=== PATIENT | female | born 1950 | race Caucasian/White ===

== ENCOUNTER 2017-06-26 18:30 | Emergency (ER) | payer MEDICAID, MEDICARE ==
[~2017-06-26] VITALS: Ht 160 cm; Wt 77.0 kg
[~2017-06-26 18:30] MED LIST: CARB1TAB45 PO; CYAN100080 PO; DEXL60CA2 PO; FURO-110 PO; GABA100C14 PO; IBUP-1542 PO; INSU100I27 SQ; ISM20 PO; LACT10SO5 PO; MECL-77 PO; NOVO3I SC; PANT40TA3 PO; RIFA550T4 PO; SPIR50TA31 PO
[2017-06-26 18:38] VITALS: Ht 160 cm; Wt 77.0 kg
[2017-06-27] MEDS ORDERED: NOVO3I SC (13:26)
[2017-06-27] MEDS ORDERED: CALC500T91 PO (13:28)
[2017-06-27] MEDS ORDERED: LEVEM SC (13:28)
== END 2017-06-26 22:04 | disposition left against medical advice (07) ==
LOC: E/R 18:30
DX: Z53.21 Procedure and treatment not carried out due to patient leaving prior to being seen by health care provider (principal)

== ENCOUNTER 2017-06-27 11:37 | Observation (INO) | payer MEDICARE, OTHER ==
[~2017-06-27] VITALS: Ht 160 cm; Wt 78.5 kg
[2017-06-27] MEDS ORDERED: NITROGLYCERIN 2% 1 GM OINT PKT TD STA (12:08)
[2017-06-27] MEDS ORDERED: ASPIRIN 81 MG TAB PO STA (12:08)
--- NOTE | 2017-06-27 12:23 | ERA ---
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 She has a history of hepatitis, cirrhosis and diabetes. She describes at least 2 days of chest pain that she describes as left-sided, pressure-like and exertional with associated shortness of breath. Chest pain alleviated with cessation of walking or exerting symptoms. She denies any pleuritic pain. She does note some increased social stressors recently. She denies any melena, hematemesis. No abdominal pain. ROS All systems reviewed and are negative except as per history of present illness. Medications Home Meds Active Scripts Pantoprazole* (Protonix*) 40 Mg Tablet.dr, 40 MG PO DAILY, #14 TAB Prov:BRANDON VOSS MD 09/02/16 Reported Medications Calcium Carbonate ([id number]) 500 Mg Tablet, 500 MG PO BID, TAB 06/27/17 Insulin Detemir (Levemir) 100 Unit/1 Ml Vial, 60 UNIT SC QHS, VIAL 06/27/17 Insulin Aspart* (Novolog Insulin Pen*) 100 Unit/Ml Soln, 20 UNIT SC QAM, EA 06/27/17 Isosorbide Mononitrate* (Isosorbide Mononitrate*) 20 Mg Tablet, 20 MG PO BID, TAB 09/02/16 Ibuprofen* (Ibuprofen*) 600 Mg Tablet, 600 MG PO DAILY Y for PAIN, TAB 09/02/16 Lactulose* (Lactulose*) 10 Gm/15 Ml Solution, 10 GM PO BID, ML 09/02/16 Gabapentin* (Gabapentin*) 100 Mg Capsule, 100 MG PO TID, CAP 02/28/15 Rifaximin* (Xifaxan*) 550 Mg Tablet, 550 MG PO BID 02/26/14 Meclizine Hcl* (Meclizine Hcl*) 25 Mg Tablet, 25 MG PO DAILY 04/17/13 Furosemide* (Lasix*) 20 Mg Tablet, 20 MG PO DAILY 04/17/13 Discontinued Reported Medications Cyanocobalamin* (Vitamin B-12*) 1,000 Mcg Tablet.sa, 1000 MCG PO DAILY, TAB 11/12/16 Carbidopa/Levodopa (CARBIDOPA-LEVO 10-100 MG ODT) 1 Each Tab.rapdis, 1 TAB PO BID, #60 TAB 09/02/16 Dexlansoprazole (Dexilant) 60 Mg , 60 MG PO DAILY, #30 CAP 09/02/16 Spironolactone* (Aldactone*) 50 Mg Tablet, 50 MG PO TID 04/17/13 Allergies Allergies: Coded Allergies: morphine (Verified Allergy, Mild, 06/27/17) FACIAL REDNESS aspirin (Verified Allergy, Unknown, 06/27/17) PMhx/Soc History of Surgery: Yes (hepatic banding/ tips) Anesthesia Reaction: No Hx Neurological Disorder: No Hx Respiratory Disorders: No Hx Cardiac Disorders: Yes (HTN) Hx Psychiatric Problems: Yes (depression- lost son 10 yo; lost husb 2 wks ago) Hx Miscellaneous Medical Probl: No Hx Alcohol Use: No Hx Substance Use: No Hx Tobacco Use: No FmHx Family History: diabetes Physical Exam Vitals Vital Signs Date Time Temp Pulse Resp B/P Pulse Ox O2 Delivery O2 Flow Rate FiO2 06/27/17 14:51 98.0 73 18 101/49 99 Room Air 06/27/17 13:19 97.7 75 16 115/49 98 Room Air 06/27/17 11:42 97.6 81 18 124/57 98 Physical Exam General: Well developed, well nourished, no acute distress Head: Normocephalic, atraumatic. Eyes: Pupils equally reactive, EOM intact ENT: Moist mucous membranes Neck: Supple, no lymphadenopathy Respiratory: Lungs clear bilaterally, no distress Cardiovascular: RRR, no murmurs, rubs, or gallops Abdominal: Soft, non-tender, non-distended, no peritoneal signs : Deferred MSK: No edema, no unilateral swelling, 5/5 strength, No pulse deficits Neurologic: Alert and oriented, moving all extremities, normal speech, no focal weakness, no cerebellar signs Skin: No rash Psych: Normal mood Result Diagram: 06/27/17 1220 06/27/17 1220 Results 24 hrs Laboratory Tests Test 06/27/17 12:20 White Blood Count 3.410^3/ul Red Blood Count 3.6210^6/ul Hemoglobin 9.2g/dl Hematocrit 28.7% Mean Corpuscular Volume 79.3fl Mean Corpuscular Hemoglobin 25.4pg Mean Corpuscular Hemoglobin Concent 32.1g/dl Red Cell Distribution Width 16.5% Platelet Count 5810^3/UL Mean Platelet Volume 10.8fl Neutrophils % 71.7% Lymphocytes % 17.5% Monocytes % 9.3% Eosinophils % 0.9% Basophils % 0.6% Nucleated Red Blood Cells % 0.0/100WBC Neutrophils # (Manual) 2.510^3/ul Lymphocytes # 0.610^3/ul Monocytes # 0.310^3/ul Eosinophils # 0.010^3/ul Basophils # 0.010^3/ul Nucleated Red Blood Cells # 0.010^3/ul Prothrombin Time 16.2Sec Prothrombin Time Ratio 1.3 INR International Normalized Ratio 1.29 Activated Partial Thromboplast Time 28.9Sec Sodium Level 140mmol/L Potassium Level 4.6mmol/L Chloride Level 108mmol/L Carbon Dioxide Level 27mmol/L Anion Gap 10 Blood Urea Nitrogen 14mg/dl Creatinine 0.61mg/dl Glucose Level 282mg/dl Calcium Level 9.6mg/dl Total Bilirubin 1.0mg/dl Direct Bilirubin 0.00mg/dl Indirect Bilirubin 1.0mg/dl Aspartate Amino Transf (AST/SGOT) 36IU/L Alanine Aminotransferase (ALT/SGPT) 37IU/L Alkaline Phosphatase 173IU/L Troponin I < 0.012ng/ml Total Protein 6.8g/dl Albumin 3.4g/dl Globulin 3.40g/dl Albumin/Globulin Ratio 1.00 Current Medications Medications (Trade) Dose Ordered Sig/Grant Route PRN Reason Start Time Stop Time Status Last Admin Dose Admin Aspirin (Aspirin) 162 mg ONCE STAT PO 06/27/17 12:08 06/27/17 12:10 DC 06/27/17 12:26 Nitroglycerin (Nitroglycerin 2% Oint) 1 inch ONCE STAT TD 06/27/17 12:08 06/27/17 12:10 DC 06/27/17 12:26 Vancomycin HCl 1 ea 1 ea PER PROTOCOL XX 06/27/17 14:30 06/27/17 14:32 DC Meropenem/Sodium Chloride (Merrem 500mg/50 ml(Pmx)) 50 ml @ 200 mls/hr ONCE STAT IVPB 06/27/17 14:14 06/27/17 14:32 DC Ondansetron HCl (Zofran Inj) 4 mg ER BRIDGE PRN IV NAUSEA AND/OR VOMITING 06/27/17 15:00 06/28/17 14:59 Acetaminophen (Tylenol Tab) 650 mg ER BRIDGE PRN PO MILD PAIN/FEVER 06/27/17 15:00 06/28/17 14:59 Procedures/MDM EKG, MONITORS, & DIAGNOSTIC IMAGING: EKG: I reviewed and interpreted a 12-lead EKG. Rhythm: Normal sinus rhythm Ectopy: None Intervals: No abnormalities ST segments: No elevations or depressions T waves: No contiguous inversions Repeat EKG: EKG: I reviewed and interpreted a 12-lead EKG. Rhythm: Normal sinus rhythm Ectopy: None Intervals: No abnormalities ST segments: No elevations or depressions T waves: No contiguous inversions Chest x-ray: I reviewed and interpreted a 1 view of the chest Mediastinum: No enlargement Cardiac silhouette: No cardiomegaly Airspace: Clear lung mart bilaterally without evidence of pneumothorax Bones: No evidence of fracture LAB INTERPRETATION: Negative troponin, pancytopenia consistent with the patient's known cirrhosis MEDICAL DECISION MAKING: The patient's history, physical exam and clinical presentation is concerning for possible cardiogenic etiology and acute coronary syndrome. Based on the patient's clinical exam and history and risk factors, I have a much lower clinical concern for pulmonary embolism, acute aortic dissection, pneumothorax, pneumonia, cardiac tamponade HEART Score: 4 MACE Rate: 16.6% Shared Decision Making: We had a conversation regarding risk stratification, MACE rate, and the risks, benefits, alternatives of disposition planning options. Disposition planning: Given the patient's no prior history of cardiac risk stratification a believe inpatient hospitalization would be reasonable. Patient is agreeable. ER COURSE: Aspirin provided, however the patient did state aspirin allergy this is not a true allergy use only because the patient was advised not to take aspirin regularly given cirrhosis. A single dose would be appropriate. 162 provided. Nitro paste applied. Patient is chest pain-free. I kept the patient and/or family informed of laboratory and diagnostic imaging results throughout the emergency room course. DISPOSITION PLAN: Telemetry admission to rule out acute coronary syndrome, risk stratify the patient and discussed provocative testing. CONSULTATION: Accepting care team and consultations: I discussed the current laboratory data, diagnostic imaging and emergency care provided. Admitting team: Dr. Clemens Admitting team indication: Insurance directed Departure Diagnosis: Primary Impression: Chest pain Qualified Code: R07.9 - Chest pain, unspecified type Additional Impression: Pancytopenia Condition: Stable REENA PAULSON MD Jun 27, 2017 12:23
[2017-06-27 12:33] LABS: ABNORMAL IP MESSAGE 1; BASOPHILS % 0.6 % (0.0-2.0); EOSINOPHILS % 0.9 % (0.0-7.0); HEMATOCRIT 28.7 % (37.0-47.0); HEMOGLOBIN 9.2 g/dl (12.0-16.0); LYMPHOCYTES # 0.6 10^3/ul (0.8-2.9); LYMPHOCYTES % 17.5 % (15.0-51.0); MEAN CORPUSCULAR HEMOGLOBIN 25.4 pg (29.0-33.0); MEAN CORPUSCULAR HGB CONC 32.1 g/dl (32.0-37.0); MEAN CORPUSCULAR VOLUME 79.3 fl (82.0-101.0); MEAN PLATELET VOLUME 10.8 fl (7.4-10.4); MONOCYTE # 0.3 10^3/ul (0.3-0.9); MONOCYTES % 9.3 % (0.0-11.0); NEUTROPHILS % 71.7 % (39.0-77.0); PLATELET COUNT 58 10^3/UL (140-415); RED BLOOD COUNT 3.62 10^6/ul (4.20-5.40); RED CELL DISTRIBUTION WIDTH 16.5 % (11.5-14.5); WHITE BLOOD COUNT 3.4 10^3/ul (4.8-10.8)
[2017-06-27 12:47] LABS: POSITIVE DIFF @See below
--- NOTE | 2017-06-27 12:50 | RADRPT ---
PROCEDURE: Chest xray. CLINICAL INDICATION: Chest pain, difficulty breathing. TECHNIQUE: A portable semiupright AP view of the chest was obtained. COMPARISON: 09/02/2016. FINDINGS: There is stable mild enlargement of the cardiac silhouette. Atherosclerotic calcifications are again noted in the aorta. The lungs are well moderately expanded and show normal vascularity. No focal op acity, pleural effusion, or pneumothorax is identified. The skeletal structures and soft tissues are unremarkable. IMPRESSION: Stable mild cardiomegaly. Otherwise, no acute intrathoracic abnormality. RPTAT:PP .Yohana Spivey MD, MD Date Time Electronically viewed and signed by .Yohana Spivey MD, on 06/27/2017 12:50 .K/
[2017-06-27 13:05] LABS: INR 1.29; PARTIAL THROMBOPLASTIN TIME 28.9 Sec (25.0-35.0); PROTIME 16.2 Sec (12.2-14.2); PT RATIO 1.3
[2017-06-27 13:16] LABS: ALANINE AMINOTRANSFERASE 37 IU/L (13-69); ALBUMIN 3.4 g/dl (3.3-4.9); ALKALINE PHOSPHATASE 173 IU/L (42-121); ANION GAP 10 (8-16); ASPARTATE AMINO TRANSFERASE 36 IU/L (15-46); BLOOD UREA NITROGEN 14 mg/dl (7-20); CALCIUM 9.6 mg/dl (8.4-10.2); CARBON DIOXIDE 27 mmol/L (21-31); CHLORIDE 108 mmol/L (97-110); CREATININE 0.61 mg/dl (0.44-1.00); GLUCOSE 282 mg/dl (70-220); POTASSIUM 4.6 mmol/L (3.5-5.1); SODIUM 140 mmol/L (135-144); TOTAL PROTEIN 6.8 g/dl (6.1-8.1)
[2017-06-27] MEDS ORDERED: NOVO3I SC (13:26)
[2017-06-27 13:28] LABS: TROPONIN-I < 0.012 ng/ml (0.00-0.12)
[2017-06-27] MEDS ORDERED: CALC500T91 PO (13:28)
[2017-06-27] MEDS ORDERED: LEVEM SC (13:28)
[2017-06-27] MEDS ORDERED: MEROPENEM 500MG/50 ML (PMX) 50 ML IVPB STA (14:14)
[2017-06-27] MEDS ORDERED: VANCOMYCIN IV PER PHARMACY XX SCH (14:30)
[2017-06-27] MEDS ORDERED: ONDANSETRON 4 MG INJ IV PRN ×2 (15:00→16:30)
[2017-06-27] MEDS ORDERED: ACETAMINOPHEN 325 MG TAB PO PRN ×2 (15:00→16:30)
[2017-06-27] MEDS ORDERED: NACL 0.9% 3 ML SYG IV SCH (16:30)
[2017-06-27 16:38] VITALS: TEMP 98
[2017-06-27] MEDS ORDERED: GLUCAGON 1 MG INJ IM PRN (17:00)
[2017-06-27] MEDS ORDERED: DEXTROSE 50% 50 ML SYRINGE IV PRN ×2 (17:00)
[2017-06-27] MEDS ORDERED: GLUCOSE GEL 15 GRAM TUBE BUCCAL PRN (17:00)
[2017-06-27] MEDS ORDERED: GLUCOSE GEL 15 GRAM TUBE PO PRN ×2 (17:00)
--- NOTE | 2017-06-27 17:02 | HP ---
Date/Time of Note Date/Time of Note DATE: 06/27/17 TIME: 16:57 Assessment/Plan VTE Prophylaxis VTE Prophylaxis Intervention: SCD's Lines/Catheters IV [facility] [place] [facility] Assessment/Plan Chief Complaint/Hosp Course 1. Chest pain. To rule out acute coronary syndrome. Serial troponins will be obtained. A 2D echocardiogram will be obtained. A cardiology consult will be obtained. The patient will not be started on aspirin because of underlying thrombocytopenia. 2. Type 2 diabetes mellitus. The patient will be started on sliding scale insulin along with basal insulin and pre-meal insulin. Hemoglobin A1c will be obtained to evaluate the blood glucose control the past few weeks. 3. Nonalcoholic liver cirrhosis. The patient's cirrhotic medications will be resumed. 4. Pancytopenia. Most probably secondary to underlying liver cirrhosis. Monitor. 5. Left great toe necrotic wound. Will have podiatry evaluate this. Plan: The patient will be admitted to inpatient Telemetry floor. The patient will be started on a carbohydrate controlled diet. The patient will be started on DVT prophylaxis and gastrointestinal prophylaxis. Chemical DVT prophylaxis will be avoided because of underlying thrombocytopenia. The patient will remain a full code. Activities will be as tolerated. The rest of the patient's management will be based on the clinical course, inputs from consultants, and the results of diagnostic studies. Based on the patient's clinical presentation, she most probably requires at least 1 midnight's stay for further management and evaluation of her clinical presentation. The case and management of this patient was fully discussed with Dr. Swift. Problems: HPI/ROS Admit Date/Time Admit Date/Time Hx of Present Illness Reason for admission: Chest pain. Consultants 1. Art Mcfarland DO, Cardiology. This is a 67-year-old Occitan female with past medical history of nonalcoholic liver cirrhosis, type 2 diabetes mellitus, and dyslipidemia, who came to the emergency room with chief complaint of chest pain that has been going on for 2 days. The patient verbalized the chest pain as substernal with no radiation. The patient denied any associated diaphoresis, nausea, or vomiting. The patient was complaining of dizziness. She also verbalized exertional dyspnea. She denied any cough. In the emergency room, the patient's initial troponins were negative. The patient was noticed to have pancytopenia. The patient's 12-lead EKG showed normal sinus rhythm. The patient was given a single dose of oral aspirin along with transdermal nitroglycerin with improvement in the patient's chest pain. ROS Constitutional: no complaints Eyes: no complaints ENT: no complaints Respiratory: shortness of breath Cardiovascular: chest pain, lightheadedness Gastrointestinal: no complaints Genitourinary: no complaints Musculoskeletal: other (B/L LE pain) Skin: laceration (Right great toe) Neurologic: no complaints Endocrine: no complaints Lymphatic: no complaints Psychological: no complaints Immunologic: no complaints PMH/Family/Social Past Medical History Medical History: diabetes, high cholesterol, other (Non-alcoholic liver cirrhosis, esophageal varices) Past Surgical History Past Surgical Hx: other (TIPS) Social History Alcohol Use: none Smoking Status: Never smoker Drug Use: none Exam/Review of Systems Vital Signs Vitals Vital Signs Date Time Temp Pulse Resp B/P Pulse Ox O2 Delivery O2 Flow Rate FiO2 06/27/17 16:38 98.0 74 18 93/36 99 Room Air Exam Exam General: Adequately build 67 year-old female lying in bed in no apparent distress. HEENT: Normocephalic, atraumatic. Eyes: Anicteric sclerae, conjunctivae clear. ENT: Nasal septum midline, oral mucosa moist. Neck supple, no JVD noticed. Respiratory: Bilaterally diminished breath sounds. No use of accessory muscles of respiration. No adventitious breath sounds. Cardiovascular: S1, S2 heard. Grade II/ ADDI. Abdomen: Soft and nontender. Distended. Bowel sounds positive in all 4 quadrants. Genitourinary: Deferred. Extremities: No cyanosis, no clubbing. Bilateral lower extremity 1+ edema. Peripheral pulses palpable. Right great toe necrotic wound on the medial aspect. Neurologic: Cranial nerves II through XII grossly intact. The patient is awake, alert, and oriented. Labs Result Diagram: 06/27/17 1220 06/27/17 1220 Medications Medications Current Medications Ondansetron HCl (Zofran Inj) 4 mg Q6H PRN IV NAUSEA AND/OR VOMITING; Start 06/27 at 16:30 Acetaminophen (Tylenol Tab) 650 mg Q6H PRN PO PAIN LEVEL 1-3 OR FEVER; Start at 16:30 Famotidine (Pepcid) 20 mg Q12 PO ; Start 06/27/17 at 21:00 Procedures Procedures CXR IMPRESSION: Stable mild cardiomegaly. Otherwise, no acute intrathoracic abnormality. 12-Lead EKG Normal sinus rhythm. MEME SHELTON NP Jun 27, 2017 17:02 MEME SHELTON NP Jun 27, 2017 17:02
[2017-06-27 17:50] VITALS: Ht 160 cm; Wt 78.5 kg
[2017-06-27 18:51] VITALS: BP 105/71; PULSE 73; RESP 20
[2017-06-27] MEDS: PANTOPRAZOLE (EC) 40 MG TAB PO SCH (19:28)
[2017-06-27] MEDS: INSULIN ASPART [NOVOLOG] 3 ML PEN SC SCH ×3 (19:29→21:29)
[2017-06-27 19:37] LABS: CREATINE KINASE 28 IU/L (23-200)
[2017-06-27 19:51] LABS: CK-MB 0.43 ng/ml (0.0-2.4)
[2017-06-27 20:03] LABS: TROPONIN-I < 0.012 ng/ml (0.00-0.12)
[2017-06-27 20:15] VITALS: PULSE 85
[2017-06-27 20:29] VITALS: PULSE 80
[2017-06-27 20:34] VITALS: BP 110/49; RESP 19
[2017-06-27] MEDS ORDERED: FAMOTIDINE 20 MG TAB PO SCH (21:00)
[2017-06-27] MEDS: LACTULOSE 30ML CUP PO SCH (21:15)
[2017-06-27] MEDS: CALCIUM CARBONATE 1.25 GM TAB PO SCH (21:16)
[2017-06-27] MEDS: RIFAXIMIN 550 MG TAB PO SCH (21:17)
[2017-06-27] MEDS: ISOSORBIDE MONONITRATE 20 MG TAB PO SCH (21:18)
[2017-06-27] MEDS: GABAPENTIN 100 MG CAP PO SCH (21:33)
[2017-06-27] MEDS ORDERED: INSULIN ASPART [NOVOLOG] 3 ML PEN SC ONE (21:45)
[2017-06-27] MEDS ORDERED: INSULIN GLARGINE [LANtus] 3 ML PEN SC ONE (21:50)
--- NOTE | 2017-06-27 22:30 | CONS ---
Date/Time of Note Date/Time of Note DATE: 06/27/17 TIME: 22:24 Assessment/Plan Assessment/Plan Additional Assessment/Plan Chest and abdominal pain Dyspnea Liver cirrhosis Pancytopenia History of GI bleed -Patient with symptoms of chest discomfort and abdominal pain which is exacerbated by palpation and movements. She does as well complaint of dyspnea which is exacerbated by activity. Initial ECG with no significant ischemic abnormalities, first 2 sets of cardiac enzymes remain negative. Will obtain serial cardiac enzymes, check echocardiogram. Given history of GI bleed and current pancytopenia, would not continue aspirin at the current time. Would consider concurrently evaluating possible GI etiology to patient's abdominal discomfort and chest discomfort. Consultation Date/Type/Reason Admit Date/Time Type of Consultation: cv Reason for Consultation Chest pain Hx of Present Illness This is a 67-year-old female with past medical history of liver cirrhosis, pancytopenia, GI bleed who presents with complaints of abdominal pain, chest pain and shortness of breath. Chest pain is worse with palpation of chest wall and abdomen. Shortness of breath is exacerbated by activity. Symptoms began approximately 2-3 days ago. No fevers or chills, dizziness or lightheadedness. At the current time, she denies chest pain or shortness of breath. 12 point review of systems was performed with all pertinent positives and negatives mentioned above and all else is negative Eyes: no complaints ENT: no complaints Respiratory: shortness of breath Cardiovascular: chest pain, lightheadedness Gastrointestinal: no complaints Genitourinary: no complaints Musculoskeletal: other (B/L LE pain) Skin: laceration (Right great toe) Neurologic: no complaints Lymphatic: no complaints Psychological: no complaints Immunologic: no complaints Past Medical History Medical History: diabetes, high cholesterol, other (Non-alcoholic liver cirrhosis, esophageal varices) Past Surgical History Past Surgical Hx: other (TIPS) Family History Significant Family History: no pertinent family hx Social History Alcohol Use: none Smoking Status: Never smoker Drug Use: none Exam/Review of Systems Vital Signs Vitals Vital Signs Date Time Temp Pulse Resp B/P Pulse Ox O2 Delivery O2 Flow Rate FiO2 06/27/17 20:34 97.9 79 19 110/49 98 06/27/17 18:51 Room Air Exam No apparent distress Constitutional: alert, oriented Head: normocephalic Respiratory: clear to auscultation, normal air movement Cardiovascular: other (S1-S2 heard), regular rate and rhythm Gastrointestinal: bowel sounds, soft, tender (More so epigastric region and left upper quadrant) Musculoskeletal: other (Discomfort with palpation of chest wall) Extremities: edema Results Result Diagram: 06/27/17 1220 06/27/17 1220 Results 24 hrs Laboratory Tests Test 06/27/17 12:20 06/27/17 18:20 06/27/17 19:24 06/27/17 21:21 White Blood Count 3.4 L Red Blood Count 3.62 L Hemoglobin 9.2 L Hematocrit 28.7 L Mean Corpuscular Volume 79.3 L Mean Corpuscular Hemoglobin 25.4 L Mean Corpuscular Hemoglobin Concent 32.1 Red Cell Distribution Width 16.5 H Platelet Count 58 L Mean Platelet Volume 10.8 #H Neutrophils % 71.7 Lymphocytes % 17.5 Monocytes % 9.3 Eosinophils % 0.9 Basophils % 0.6 Nucleated Red Blood Cells % 0.0 Neutrophils # (Manual) 2.5 Lymphocytes # 0.6 L Monocytes # 0.3 Eosinophils # 0.0 Basophils # 0.0 Nucleated Red Blood Cells # 0.0 Prothrombin Time 16.2 H Prothrombin Time Ratio 1.3 INR International Normalized Ratio 1.29 Activated Partial Thromboplast Time 28.9 Sodium Level 140 Potassium Level 4.6 Chloride Level 108 Carbon Dioxide Level 27 Anion Gap 10 Blood Urea Nitrogen 14 Creatinine 0.61 Glucose Level 282 H Hemoglobin A1c 8.9 H Calcium Level 9.6 Total Bilirubin 1.0 Direct Bilirubin 0.00 Indirect Bilirubin 1.0 Aspartate Amino Transf (AST/SGOT) 36 Alanine Aminotransferase (ALT/SGPT) 37 Alkaline Phosphatase 173 H Troponin I < 0.012 < 0.012 Total Protein 6.8 Albumin 3.4 Globulin 3.40 H Albumin/Globulin Ratio 1.00 Thyroid Stimulating Hormone (TSH) 1.270 Free Thyroxine 1.24 Creatine Kinase 28 Creatine Kinase Index 1.5 Creatinine Kinase MB (Mass) 0.43 Bedside Glucose 340 H 389 H Medications Medications Current Medications Ondansetron HCl (Zofran Inj) 4 mg Q6H PRN IV NAUSEA AND/OR VOMITING; Start 06/27 at 16:30 Acetaminophen (Tylenol Tab) 650 mg Q6H PRN PO PAIN LEVEL 1-3 OR FEVER; Start at 16:30 Calcium Carbonate (Oyster Shell Calcium) 1.25 gm BID PO Last administered on 21:16; Admin Dose 1.25 GM; Start 06/27/17 at 21:00 Furosemide (Lasix) 20 mg DAILY PO ; Start 06/28/17 at 09:00 Gabapentin (Neurontin) 100 mg TID PO Last administered on 06/27/17 21:33; Admin Dose 100 MG; Start 06/27/17 at 21:00 Isosorbide Mononitrate (Ismo) 20 mg BID PO Last administered on 06/27/17 21:18 ; Admin Dose 20 MG; Start 06/27/17 at 21:00 Lactulose (Enulose) 10 gm BID PO Last administered on 06/27/17 21:15; Admin Dose 10 GM; Start 06/27/17 at 21:00 Meclizine HCl (Antivert) 25 mg DAILY PO ; Start 06/28/17 at 09:00 Pantoprazole (Protonix Tab) 40 mg DAILY PO Last administered on 06/27/17 19:28 ; Admin Dose 40 MG; Start 06/27/17 at 17:00 Rifaximin (Xifaxan) 550 mg BID PO Last administered on 06/27/17 21:17; Admin Dose 550 MG; Start 06/27/17 at 21:00 Diagnostic Test (Pha) (Accu-Chek) 1 ea 02 XX ; Start 06/28/17 at 02:00 Insulin Glargine (Lantus) 20 unit DAILY@08 SC ; Start 06/28/17 at 08:00 Miscellaneous Information 1 ea NOTE XX ; Start 06/27/17 at 17:00 Glucose (Glutose) 15 gm Q15M PRN PO DECREASED GLUCOSE; Start 06/27/17 at 17:00 Glucose (Glutose) 22.5 gm Q15M PRN PO DECREASED GLUCOSE; Start 06/27/17 at 17:00 Dextrose (D50w Syringe) 25 ml Q15M PRN IV DECREASED GLUCOSE; Start 06/27/17 at 17:00 Dextrose (D50w Syringe) 50 ml Q15M PRN IV DECREASED GLUCOSE; Start 06/27/17 at 17:00 Glucagon (Glucagen) 1 mg Q15M PRN IM DECREASED GLUCOSE; Start 06/27/17 at 17:00 Glucose (Glutose) 15 gm Q15M PRN BUCCAL DECREASED GLUCOSE; Start 06/27/17 at 17: 00 Procedures Procedures ECG with sinus rhythm, normal QRS duration, no significant ischemic ST abnormalities Art Mcfarland DO Jun 27, 2017 22:30
[2017-06-28] VITALS (13 sets, daily range): BP systolic 108–119; BP diastolic 49–63; PULSE 74–87; RESP 17–19
[2017-06-28 01:42] LABS: CK-MB 0.43 ng/ml (0.0-2.4)
[2017-06-28 01:49] LABS: CREATINE KINASE < 20 IU/L (23-200); TROPONIN-I < 0.012 ng/ml (0.00-0.12)
[2017-06-28] MEDS: ACCU-CHEK XX SCH (02:25)
[2017-06-28 07:09] LABS: ABNORMAL IP MESSAGE 1; BASOPHILS % 0.4 % (0.0-2.0); EOSINOPHILS # 0.1 10^3/ul (0.0-0.5); EOSINOPHILS % 2.1 % (0.0-7.0); HEMATOCRIT 25.2 % (37.0-47.0); LYMPHOCYTES # 0.6 10^3/ul (0.8-2.9); LYMPHOCYTES % 23.7 % (15.0-51.0); MEAN CORPUSCULAR HEMOGLOBIN 25.1 pg (29.0-33.0); MEAN CORPUSCULAR HGB CONC 31.7 g/dl (32.0-37.0); MEAN PLATELET VOLUME 11.3 fl (7.4-10.4); MONOCYTE # 0.3 10^3/ul (0.3-0.9); MONOCYTES % 11.9 % (0.0-11.0); NEUTROPHILS % 61.9 % (39.0-77.0); RED BLOOD COUNT 3.19 10^6/ul (4.20-5.40); RED CELL DISTRIBUTION WIDTH 16.5 % (11.5-14.5); WHITE BLOOD COUNT 2.4 10^3/ul (4.8-10.8)
[2017-06-28 07:34] LABS: CHOL/HDL RATIO 2.9 RATIO; CHOLESTEROL 120 mg/dl (100-200); HDL CHOLESTEROL 41 mg/dl (35-98); PHOSPHORUS 3.7 mg/dl (2.5-4.9); TRIGLYCERIDES 63 mg/dl (0-149)
[2017-06-28 07:40] LABS: ALBUMIN 2.6 g/dl (3.3-4.9); BILIRUBIN,INDIRECT 0.5 mg/dl (0-1.1); BILIRUBIN,TOTAL 0.5 mg/dl (0.2-1.3); CALCIUM 9.2 mg/dl (8.4-10.2); CREATININE 0.63 mg/dl (0.44-1.00); POTASSIUM 4.2 mmol/L (3.5-5.1); TOTAL PROTEIN 5.3 g/dl (6.1-8.1)
[2017-06-28 07:41] LABS: ALBUMIN/GLOBULIN RATIO 0.96
[2017-06-28 07:46] LABS: POSITIVE DIFF @See below
[2017-06-28 07:47] LABS: PLATELET COUNT 52 10^3/UL (140-415)
[2017-06-28 07:50] LABS: TROPONIN-I < 0.012 ng/ml (0.00-0.12)
[2017-06-28] MEDS: INSULIN ASPART [NOVOLOG] 3 ML PEN SC SCH ×7 (08:01→21:44)
[2017-06-28] MEDS: INSULIN GLARGINE [LANtus] 3 ML PEN SC SCH (08:02)
[2017-06-28] MEDS: LACTULOSE 30ML CUP PO SCH ×2 (08:12→21:34)
[2017-06-28] MEDS: ISOSORBIDE MONONITRATE 20 MG TAB PO SCH ×2 (08:13→21:40)
[2017-06-28] MEDS: GABAPENTIN 100 MG CAP PO SCH ×3 (08:13→21:35)
[2017-06-28] MEDS: CALCIUM CARBONATE 1.25 GM TAB PO SCH ×2 (08:13→21:35)
[2017-06-28] MEDS: RIFAXIMIN 550 MG TAB PO SCH ×2 (08:13→21:35)
[2017-06-28] MEDS: PANTOPRAZOLE (EC) 40 MG TAB PO SCH (08:14)
[2017-06-28] MEDS: MECLIZINE 25 MG TAB PO SCH (08:14)
[2017-06-28] MEDS: FUROSEMIDE 20 MG TAB PO SCH (08:14)
--- NOTE | 2017-06-28 12:08 | RADRPT ---
Echocardiogram Report Patient Name: VITA VUONG Gender: Female Date: 1950 Study Date: 28-Jun-2017 Paper Twister: Carlos Estes [facility] Location: [facility] Ref. Physician: MEME SHELTON Quality: Good Procedures: Transthoracic echocardiogram with complete 2D, M-Mode, and doppler examination. Indications: Chest Pain. 2D/M Mode Doppler Measurement Value Normal Ranges Measurement Value Normal Ranges LVIDd 2D 4.5 3.5 - 5.6 cm BJ Vmax 1.7 cm2 LVIDs 2D 2.5 2.1 - 4.1 cm BJ VTI 1.7 cm2 LVPWd 2D 1.0 0.6 - 1.1 cm AV Mean Robert 1.5 m/sec IVSd 2D 1.0 0.6 - 1.1 cm AV Mean PG 10.3 mmHg AoR Diam 2D 2.6 2.0 - 3.7 cm AV Peak Robert 2.3 m/sec EDV 2D 91.2 cm3 AV Peak PG 20.6 mmHg ESV 2D 16.0 cm3 AV VTI 46.6 cm LA Dimen 2D 3.4 2.3 - 4.0 cm LVOT Mean Robert 0.9 m/sec LVOT Diam 1.9 cm LVOT Mean PG 4.0 mmHg LVOT Peak Robert 1.4 m/sec LVOT Peak PG 8.2 mmHg LVOT VTI 30.6 cm MV E Peak Robert 0.9 m/sec MV A Peak Robert 0.9 m/sec MV E/A 1.0 MV Decel Time 172 msec MV Decel Churchill 5 MV E/A 1.0 TR Peak Robert 2.3 m/sec TR Peak PG 21.1 mmHg RVSP 24.0 mmHg Findings Left Ventricle: Normal left ventricular systolic function. Normal left ventricular cavity size. Normal left ventricular wall thickness. Ejection fraction is visually estimated at 65 %. Tissue Doppler/Mitral Doppler indices are consistent with impaired relaxation (Stage I diastolic dysfunction). Right Ventricle: Normal right ventricular size. Normal right ventricular systolic function. Left Atrium: The left atrium is normal in size. Right Atrium: The right atrium is normal in size. Mitral Valve: Mitral valve leaflets appear moderately thickened. Mild mitral annular calcification. Trace mitral regurgitation. Aortic Valve: Aortic valve Max velocity 2.27 m/sec. Max PG 20.60 mmHg. Mean PG 10.30 mmHg. Aortic sclerosis without stenosis. No aortic regurgitation. Tricuspid Valve: Normal appearance of the tricuspid valve. Estimated peak PA systolic pressure 24 mmHg. There is trace tricuspid regurgitation. Pulmonic Valve: Normal pulmonic valve appearance. Pericardium: Normal pericardium with no significant pericardial effusion. Aorta: Normal aortic root. IVC: Normal size and normal respiratory collapse consistent with normal right atrial pressure. Conclusions Normal left ventricular systolic function. Normal left ventricular cavity size. Normal left ventricular wall thickness. Ejection fraction is visually estimated at 65 %. Tissue Doppler/Mitral Doppler indices are consistent with impaired relaxation (Stage I diastolic dysfunction). Normal right ventricular size. Normal right ventricular systolic function. The left atrium is normal in size. The right atrium is normal in size. Aortic sclerosis without stenosis. No aortic regurgitation. Trace mitral regurgitation. Estimated peak PA systolic pressure 24 mmHg. There is trace tricuspid regurgitation. Normal pericardium with no significant pericardial effusion. Electronically Signed By: Art Mcfarland 28-Jun-2017 12:07:39 -0700 Patient Name: VITA VUONG Study Date: 28-Jun-2017 [id number]
--- NOTE | 2017-06-28 13:52 | PN ---
Date/Time of Note Date/Time of Note DATE: 06/28/17 TIME: 13:46 Assessment/Plan VTE Prophylaxis VTE Prophylaxis Intervention: contraindicated Lines/Catheters IV C[facility]ter Type (from [facility]): [facility] Assessment/Plan Chief Complaint/Hosp Course 1. Chest pain. Serial troponins have been negative. 2D echocardiogram showing preserved left ventricular ejection fraction. Cardiology following. No aspirin because of underlying thrombocytopenia and anemia. Will have gastroenterology evaluate the patient since the patient has prior history of esophageal varices status post banding. 2. Type 2 diabetes mellitus. The patient will be continued on sliding scale insulin along with basal insulin and pre-meal insulin. Hemoglobin A1c 8.9. 3. Nonalcoholic liver cirrhosis. Continue rifaximin and lactulose. 4. Pancytopenia. Most probably secondary to underlying liver cirrhosis. Monitor. 5. Left great toe necrotic wound. Podiatry has been consulted. 6. Fluids, electrolytes, and nutrition. Carbohydrate controlled diet. 7. DVT prophylaxis. Contraindicated. 8. Plan. Continue inpatient monitoring. Obtain gastroenterology consult. The case and management of this patient was fully discussed with Dr. Swift. Problems: Subjective 24 Hr Interval Summary Free Text/Dictation Complains of epigastric pain. Exam/Review of Systems Vital Signs Vitals Vital Signs Date Time Temp Pulse Resp B/P Pulse Ox O2 Delivery O2 Flow Rate FiO2 06/28/17 12:30 75 06/28/17 12:06 98.0 19 113/57 97 06/27/17 18:51 Room Air Intake and Output 06/27/17 06/27/17 06/28/17 15:00 23:00 07:00 Intake Total 520 ml Balance 520 ml Exam General: Adequately build 67 year-old female lying in bed in no apparent distress. HEENT: Normocephalic, atraumatic. Eyes: Anicteric sclerae, conjunctivae clear. ENT: Nasal septum midline, oral mucosa moist. Neck supple, no JVD noticed. Respiratory: Bilaterally diminished breath sounds. No use of accessory muscles of respiration. No adventitious breath sounds. Cardiovascular: S1, S2 heard. Grade II/ ADDI. Abdomen: Soft and nontender. Distended. Bowel sounds positive in all 4 quadrants. Genitourinary: Deferred. Extremities: No cyanosis, no clubbing. Bilateral lower extremity 1+ edema. Peripheral pulses palpable. Right great toe necrotic wound on the medial aspect. Neurologic: Cranial nerves II through XII grossly intact. The patient is awake, alert, and oriented. Results Result Diagram: 06/28/17 0632 06/28/17 0631 Results 24 hrs Laboratory Tests Test 06/27/17 18:16 06/27/17 18:20 06/27/17 19:24 06/27/17 21:21 Bedside Glucose 277 H 340 H 389 H Creatine Kinase 28 Creatine Kinase Index 1.5 Creatinine Kinase MB (Mass) 0.43 Troponin I < 0.012 Test 06/28/17 00:49 06/28/17 02:19 06/28/17 06:31 06/28/17 06:32 Creatine Kinase < 20 L Creatine Kinase Index Creatinine Kinase MB (Mass) 0.43 Troponin I < 0.012 < 0.012 Bedside Glucose 278 H Sodium Level 141 Potassium Level 4.2 Chloride Level 111 H Carbon Dioxide Level 27 Anion Gap 7 L Blood Urea Nitrogen 14 Creatinine 0.63 Glucose Level 234 H Calcium Level 9.2 Total Bilirubin 0.5 Direct Bilirubin 0.00 Indirect Bilirubin 0.5 Aspartate Amino Transf (AST/SGOT) 30 Alanine Aminotransferase (ALT/SGPT) 34 Alkaline Phosphatase 143 H Ammonia 120 #H Total Protein 5.3 #L Albumin 2.6 L Globulin 2.70 Albumin/Globulin Ratio 0.96 White Blood Count 2.4 #L Red Blood Count 3.19 L Hemoglobin 8.0 L Hematocrit 25.2 L Mean Corpuscular Volume 79.0 L Mean Corpuscular Hemoglobin 25.1 L Mean Corpuscular Hemoglobin Concent 31.7 L Red Cell Distribution Width 16.5 H Platelet Count 52 L Mean Platelet Volume 11.3 H Neutrophils % 61.9 Lymphocytes % 23.7 Monocytes % 11.9 H Eosinophils % 2.1 Basophils % 0.4 Nucleated Red Blood Cells % 0.0 Neutrophils # (Manual) 1.5 L Lymphocytes # 0.6 L Monocytes # 0.3 Eosinophils # 0.1 Basophils # 0.0 Nucleated Red Blood Cells # 0.0 Phosphorus Level 3.7 Magnesium Level 2.0 Triglycerides Level 63 Cholesterol Level 120 LDL Cholesterol, Calculated 66 HDL Cholesterol 41 Cholesterol/HDL Ratio 2.9 Test 06/28/17 07:39 06/28/17 12:04 Bedside Glucose 255 H 209 Medications Medications Current Medications Ondansetron HCl (Zofran Inj) 4 mg Q6H PRN IV NAUSEA AND/OR VOMITING; Start 06/27 at 16:30 Acetaminophen (Tylenol Tab) 650 mg Q6H PRN PO PAIN LEVEL 1-3 OR FEVER; Start at 16:30 Calcium Carbonate (Oyster Shell Calcium) 1.25 gm BID PO Last administered on 08:13; Admin Dose 1.25 GM; Start 06/27/17 at 21:00 Furosemide (Lasix) 20 mg DAILY PO Last administered on 06/28/17 08:14; Admin Dose 20 MG; Start 06/28/17 at 09:00 Gabapentin (Neurontin) 100 mg TID PO Last administered on 06/28/17 12:35; Admin Dose 100 MG; Start 06/27/17 at 21:00 Isosorbide Mononitrate (Ismo) 20 mg BID PO Last administered on 06/28/17 08:13 ; Admin Dose 20 MG; Start 06/27/17 at 21:00 Lactulose (Enulose) 10 gm BID PO Last administered on 06/28/17 08:12; Admin Dose 10 GM; Start 06/27/17 at 21:00 Meclizine HCl (Antivert) 25 mg DAILY PO Last administered on 06/28/17 08:14; Admin Dose 25 MG; Start 06/28/17 at 09:00 Pantoprazole (Protonix Tab) 40 mg DAILY PO Last administered on 06/28/17 08:14 ; Admin Dose 40 MG; Start 06/27/17 at 17:00 Rifaximin (Xifaxan) 550 mg BID PO Last administered on 06/28/17 08:13; Admin Dose 550 MG; Start 06/27/17 at 21:00 Diagnostic Test (Pha) (Accu-Chek) 1 ea 02 XX Last administered on 06/28/17 02: 25; Admin Dose 1 EA; Start 06/28/17 at 02:00 Insulin Glargine (Lantus) 20 unit DAILY@08 SC Last administered on 06/28/17 08: 02; Admin Dose 20 UNIT; Start 06/28/17 at 08:00 Miscellaneous Information 1 ea NOTE XX ; Start 06/27/17 at 17:00 Glucose (Glutose) 15 gm Q15M PRN PO DECREASED GLUCOSE; Start 06/27/17 at 17:00 Glucose (Glutose) 22.5 gm Q15M PRN PO DECREASED GLUCOSE; Start 06/27/17 at 17:00 Dextrose (D50w Syringe) 25 ml Q15M PRN IV DECREASED GLUCOSE; Start 06/27/17 at 17:00 Dextrose (D50w Syringe) 50 ml Q15M PRN IV DECREASED GLUCOSE; Start 06/27/17 at 17:00 Glucagon (Glucagen) 1 mg Q15M PRN IM DECREASED GLUCOSE; Start 06/27/17 at 17:00 Glucose (Glutose) 15 gm Q15M PRN BUCCAL DECREASED GLUCOSE; Start 06/27/17 at 17: 00 MEME SHELTON NP Jun 28, 2017 13:52
--- NOTE | 2017-06-28 14:54 | CONS ---
Date/Time of Note Date/Time of Note DATE: 06/28/17 TIME: 14:47 Assessment/Plan Assessment/Plan Additional Assessment/Plan Assessment * Chest pain cardiac vs non cardiac * Liver cirrhosis * Diabetes mellitus * H/O EGD and banding of esophageal varices Plan * EGD but patient and family refused the procedure * Continue present management * Will sign off for now * case discussed with Dr Harper Consultation Date/Type/Reason Admit Date/Time Date of Consultation: Jun 28, 2017 Type of Consultation: gastroenterology Reason for Consultation chest pain Referring Provider: MEME SHELTON INSURANCE SALES ASSISTANT Hx of Present Illness 67 year old female with past medical history of diabetes mellitus,liver cirrhosis,post EGD with banding of varices 1 year ago,presented in emergency room complaining of chest pain with associated abdominal discomfort.Patient denies any episode of hematemesis.Patient was evaluated by cardiology and serial troponin was negative.I spoke with the patient and family regarding the planned endoscopy but patient refused Constitutional: improved, no complaints Eyes: no complaints ENT: no complaints Respiratory: shortness of breath Cardiovascular: chest pain, lightheadedness Gastrointestinal: no complaints Genitourinary: no complaints Musculoskeletal: other (B/L LE pain) Skin: laceration (Right great toe) Neurologic: no complaints Endocrine: no complaints Lymphatic: no complaints Psychological: no complaints Immunologic: no complaints Past Medical History Medical History: diabetes, high cholesterol, other (Non-alcoholic liver cirrhosis, esophageal varices) Past Surgical History Past Surgical Hx: other (TIPS) Social History Alcohol Use: none Smoking Status: Never smoker Drug Use: none Exam/Review of Systems Vital Signs Vitals Vital Signs Date Time Temp Pulse Resp B/P Pulse Ox O2 Delivery O2 Flow Rate FiO2 06/28/17 12:30 75 06/28/17 12:06 98.0 19 113/57 97 06/27/17 18:51 Room Air Intake and Output 06/27/17 06/27/17 06/28/17 15:00 23:00 07:00 Intake Total 520 ml Balance 520 ml Exam Constitutional: alert, oriented, well developed Psych: nl mood/affect, no complaints Head: atraumatic, normocephalic Eyes: EOMI, PERRL, nl conjunctiva, nl lids, nl sclera ENMT: nl external ears & nose, nl lips & teeth, nl nasal mucosa & septum Neck: non-tender, supple Respiratory: clear to auscultation, normal air movement Cardiovascular: nl pulses, regular rate and rhythm Gastrointestinal: nl liver, spleen, non-tender, soft Musculoskeletal: nl extremities to inspection, nl gait and stance Extremities: normal pulses Neurological: LIGHT RAIL VEHICLE OPERATOR II-XII intact, nl mental status, nl speech, nl strength Skin: nl turgor, No rash or lesions Lymph: nl lymph nodes Results Result Diagram: 06/28/17 0632 06/28/17 0631 Results 24 hrs Laboratory Tests Test 06/27/17 18:16 06/27/17 18:20 06/27/17 19:24 06/27/17 21:21 Bedside Glucose 277 H 340 H 389 H Creatine Kinase 28 Creatine Kinase Index 1.5 Creatinine Kinase MB (Mass) 0.43 Troponin I < 0.012 Test 06/28/17 00:49 06/28/17 02:19 06/28/17 06:31 06/28/17 06:32 Creatine Kinase < 20 L Creatine Kinase Index Creatinine Kinase MB (Mass) 0.43 Troponin I < 0.012 < 0.012 Bedside Glucose 278 H Sodium Level 141 Potassium Level 4.2 Chloride Level 111 H Carbon Dioxide Level 27 Anion Gap 7 L Blood Urea Nitrogen 14 Creatinine 0.63 Glucose Level 234 H Calcium Level 9.2 Total Bilirubin 0.5 Direct Bilirubin 0.00 Indirect Bilirubin 0.5 Aspartate Amino Transf (AST/SGOT) 30 Alanine Aminotransferase (ALT/SGPT) 34 Alkaline Phosphatase 143 H Ammonia 120 #H Total Protein 5.3 #L Albumin 2.6 L Globulin 2.70 Albumin/Globulin Ratio 0.96 White Blood Count 2.4 #L Red Blood Count 3.19 L Hemoglobin 8.0 L Hematocrit 25.2 L Mean Corpuscular Volume 79.0 L Mean Corpuscular Hemoglobin 25.1 L Mean Corpuscular Hemoglobin Concent 31.7 L Red Cell Distribution Width 16.5 H Platelet Count 52 L Mean Platelet Volume 11.3 H Neutrophils % 61.9 Lymphocytes % 23.7 Monocytes % 11.9 H Eosinophils % 2.1 Basophils % 0.4 Nucleated Red Blood Cells % 0.0 Neutrophils # (Manual) 1.5 L Lymphocytes # 0.6 L Monocytes # 0.3 Eosinophils # 0.1 Basophils # 0.0 Nucleated Red Blood Cells # 0.0 Phosphorus Level 3.7 Magnesium Level 2.0 Triglycerides Level 63 Cholesterol Level 120 LDL Cholesterol, Calculated 66 HDL Cholesterol 41 Cholesterol/HDL Ratio 2.9 Test 06/28/17 07:39 06/28/17 12:04 Bedside Glucose 255 H 209 Medications Medications Current Medications Ondansetron HCl (Zofran Inj) 4 mg Q6H PRN IV NAUSEA AND/OR VOMITING; Start 06/27 at 16:30 Acetaminophen (Tylenol Tab) 650 mg Q6H PRN PO PAIN LEVEL 1-3 OR FEVER; Start at 16:30 Calcium Carbonate (Oyster Shell Calcium) 1.25 gm BID PO Last administered on 08:13; Admin Dose 1.25 GM; Start 06/27/17 at 21:00 Furosemide (Lasix) 20 mg DAILY PO Last administered on 06/28/17 08:14; Admin Dose 20 MG; Start 06/28/17 at 09:00 Gabapentin (Neurontin) 100 mg TID PO Last administered on 06/28/17 12:35; Admin Dose 100 MG; Start 06/27/17 at 21:00 Isosorbide Mononitrate (Ismo) 20 mg BID PO Last administered on 06/28/17 08:13 ; Admin Dose 20 MG; Start 06/27/17 at 21:00 Lactulose (Enulose) 10 gm BID PO Last administered on 06/28/17 08:12; Admin Dose 10 GM; Start 06/27/17 at 21:00 Meclizine HCl (Antivert) 25 mg DAILY PO Last administered on 06/28/17 08:14; Admin Dose 25 MG; Start 06/28/17 at 09:00 Pantoprazole (Protonix Tab) 40 mg DAILY PO Last administered on 06/28/17 08:14 ; Admin Dose 40 MG; Start 06/27/17 at 17:00 Rifaximin (Xifaxan) 550 mg BID PO Last administered on 06/28/17 08:13; Admin Dose 550 MG; Start 06/27/17 at 21:00 Diagnostic Test (Pha) (Accu-Chek) 1 ea 02 XX Last administered on 06/28/17 02: 25; Admin Dose 1 EA; Start 06/28/17 at 02:00 Insulin Glargine (Lantus) 20 unit DAILY@08 SC Last administered on 9/7/17at 08: 02; Admin Dose 20 UNIT; Start 06/28/17 at 08:00 Miscellaneous Information 1 ea NOTE XX ; Start 06/27/17 at 17:00 Glucose (Glutose) 15 gm Q15M PRN PO DECREASED GLUCOSE; Start 06/27/17 at 17:00 Glucose (Glutose) 22.5 gm Q15M PRN PO DECREASED GLUCOSE; Start 06/27/17 at 17:00 Dextrose (D50w Syringe) 25 ml Q15M PRN IV DECREASED GLUCOSE; Start 06/27/17 at 17:00 Dextrose (D50w Syringe) 50 ml Q15M PRN IV DECREASED GLUCOSE; Start 06/27/17 at 17:00 Glucagon (Glucagen) 1 mg Q15M PRN IM DECREASED GLUCOSE; Start 06/27/17 at 17:00 Glucose (Glutose) 15 gm Q15M PRN BUCCAL DECREASED GLUCOSE; Start 06/27/17 at 17: 00 ZAKIYA BARNES NP Jun 28, 2017 14:54
--- NOTE | 2017-06-28 15:11 | CONS ---
Date/Time of Note Date/Time of Note DATE: 06/28/17 TIME: 15:08 Assessment/Plan Assessment/Plan Additional Assessment/Plan Chest and abdominal pain Dyspnea Preserved ejection fraction Liver cirrhosis Pancytopenia History of GI bleed Anemia -Serial cardiac enzymes remain negative, echocardiogram with preserved ejection fraction. Patient's symptoms have improved and is asking to go home. Patient was seen by her esteemed colleague Dr. Jaramillo, who is a family friend, patient refused stress test in discussion with him. No further inpatient cardiac workup needed at the current time Consultation Date/Type/Reason Admit Date/Time Jun 27, 2017 at 15:08 Initial Consult Date 06/28/17 Type of Consultation: cv Referring Provider: MEME SHELTON NP 24 HR Interval Summary Free Text/Dictation Feeling better, denies shortness of breath or chest pain at the current time. Asking to go home Exam/Review of Systems Vital Signs Vitals Vital Signs Date Time Temp Pulse Resp B/P Pulse Ox O2 Delivery O2 Flow Rate FiO2 06/28/17 12:30 75 06/28/17 12:06 98.0 19 113/57 97 06/27/17 18:51 Room Air Intake and Output 06/27/17 06/27/17 06/28/17 15:00 23:00 07:00 Intake Total 520 ml Balance 520 ml Exam No apparent distress Constitutional: alert, oriented Head: normocephalic Respiratory: other (Coarse breath sounds bilaterally, no wheezing) Cardiovascular: other (S1-S2 heard), regular rate and rhythm Gastrointestinal: bowel sounds, soft, tender (More so in epigastric region) Extremities: edema Results Result Diagram: 06/28/17 0632 06/28/17 0631 Results 24 hrs Laboratory Tests Test 06/27/17 18:16 06/27/17 18:20 06/27/17 19:24 06/27/17 21:21 Bedside Glucose 277 H 340 H 389 H Creatine Kinase 28 Creatine Kinase Index 1.5 Creatinine Kinase MB (Mass) 0.43 Troponin I < 0.012 Test 06/28/17 00:49 06/28/17 02:19 06/28/17 06:31 06/28/17 06:32 Creatine Kinase < 20 L Creatine Kinase Index Creatinine Kinase MB (Mass) 0.43 Troponin I < 0.012 < 0.012 Bedside Glucose 278 H Sodium Level 141 Potassium Level 4.2 Chloride Level 111 H Carbon Dioxide Level 27 Anion Gap 7 L Blood Urea Nitrogen 14 Creatinine 0.63 Glucose Level 234 H Calcium Level 9.2 Total Bilirubin 0.5 Direct Bilirubin 0.00 Indirect Bilirubin 0.5 Aspartate Amino Transf (AST/SGOT) 30 Alanine Aminotransferase (ALT/SGPT) 34 Alkaline Phosphatase 143 H Ammonia 120 #H Total Protein 5.3 #L Albumin 2.6 L Globulin 2.70 Albumin/Globulin Ratio 0.96 White Blood Count 2.4 #L Red Blood Count 3.19 L Hemoglobin 8.0 L Hematocrit 25.2 L Mean Corpuscular Volume 79.0 L Mean Corpuscular Hemoglobin 25.1 L Mean Corpuscular Hemoglobin Concent 31.7 L Red Cell Distribution Width 16.5 H Platelet Count 52 L Mean Platelet Volume 11.3 H Neutrophils % 61.9 Lymphocytes % 23.7 Monocytes % 11.9 H Eosinophils % 2.1 Basophils % 0.4 Nucleated Red Blood Cells % 0.0 Neutrophils # (Manual) 1.5 L Lymphocytes # 0.6 L Monocytes # 0.3 Eosinophils # 0.1 Basophils # 0.0 Nucleated Red Blood Cells # 0.0 Phosphorus Level 3.7 Magnesium Level 2.0 Triglycerides Level 63 Cholesterol Level 120 LDL Cholesterol, Calculated 66 HDL Cholesterol 41 Cholesterol/HDL Ratio 2.9 Test 06/28/17 07:39 06/28/17 12:04 Bedside Glucose 255 H 209 Medications Medications Current Medications Ondansetron HCl (Zofran Inj) 4 mg Q6H PRN IV NAUSEA AND/OR VOMITING; Start 06/27 at 16:30 Acetaminophen (Tylenol Tab) 650 mg Q6H PRN PO PAIN LEVEL 1-3 OR FEVER; Start at 16:30 Calcium Carbonate (Oyster Shell Calcium) 1.25 gm BID PO Last administered on 08:13; Admin Dose 1.25 GM; Start 06/27/17 at 21:00 Furosemide (Lasix) 20 mg DAILY PO Last administered on 06/28/17 08:14; Admin Dose 20 MG; Start 06/28/17 at 09:00 Gabapentin (Neurontin) 100 mg TID PO Last administered on 06/28/17 12:35; Admin Dose 100 MG; Start 06/27/17 at 21:00 Isosorbide Mononitrate (Ismo) 20 mg BID PO Last administered on 06/28/17 08:13 ; Admin Dose 20 MG; Start 06/27/17 at 21:00 Lactulose (Enulose) 10 gm BID PO Last administered on 06/28/17 08:12; Admin Dose 10 GM; Start 06/27/17 at 21:00 Meclizine HCl (Antivert) 25 mg DAILY PO Last administered on 06/28/17 08:14; Admin Dose 25 MG; Start 06/28/17 at 09:00 Pantoprazole (Protonix Tab) 40 mg DAILY PO Last administered on 06/28/17 08:14 ; Admin Dose 40 MG; Start 06/27/17 at 17:00 Rifaximin (Xifaxan) 550 mg BID PO Last administered on 06/28/17 08:13; Admin Dose 550 MG; Start 06/27/17 at 21:00 Diagnostic Test (Pha) (Accu-Chek) 1 ea 02 XX Last administered on 06/28/17 02: 25; Admin Dose 1 EA; Start 06/28/17 at 02:00 Insulin Glargine (Lantus) 20 unit DAILY@08 SC Last administered on 06/28/17 08: 02; Admin Dose 20 UNIT; Start 06/28/17 at 08:00 Miscellaneous Information 1 ea NOTE XX ; Start 06/27/17 at 17:00 Glucose (Glutose) 15 gm Q15M PRN PO DECREASED GLUCOSE; Start 06/27/17 at 17:00 Glucose (Glutose) 22.5 gm Q15M PRN PO DECREASED GLUCOSE; Start 06/27/17 at 17:00 Dextrose (D50w Syringe) 25 ml Q15M PRN IV DECREASED GLUCOSE; Start 06/27/17 at 17:00 Dextrose (D50w Syringe) 50 ml Q15M PRN IV DECREASED GLUCOSE; Start 06/27/17 at 17:00 Glucagon (Glucagen) 1 mg Q15M PRN IM DECREASED GLUCOSE; Start 06/27/17 at 17:00 Glucose (Glutose) 15 gm Q15M PRN BUCCAL DECREASED GLUCOSE; Start 06/27/17 at 17: 00 Art Mcfarland DO Jun 28, 2017 15:11
[2017-06-28 15:44] LABS: IRON 38 ug/dl (35-150)
[2017-06-28 15:53] LABS: TOTAL IRON BINDING CAPACITY 371 ug/dl (241-421)
[2017-06-29] VITALS (7 sets, daily range): BP systolic 107–116; BP diastolic 45–56; PULSE 78–80; RESP 16–18
[2017-06-29] MEDS: ACCU-CHEK XX SCH (02:23)
[2017-06-29 07:14] LABS: ABNORMAL IP MESSAGE 1; BASOPHILS % 0.7 % (0.0-2.0); EOSINOPHILS # 0.1 10^3/ul (0.0-0.5); EOSINOPHILS % 2.1 % (0.0-7.0); HEMATOCRIT 25.6 % (37.0-47.0); HEMOGLOBIN 8.2 g/dl (12.0-16.0); LYMPHOCYTES # 0.7 10^3/ul (0.8-2.9); LYMPHOCYTES % 24.6 % (15.0-51.0); MEAN CORPUSCULAR HEMOGLOBIN 25.2 pg (29.0-33.0); MEAN CORPUSCULAR VOLUME 78.8 fl (82.0-101.0); MEAN PLATELET VOLUME 11.2 fl (7.4-10.4); MONOCYTE # 0.3 10^3/ul (0.3-0.9); MONOCYTES % 10.7 % (0.0-11.0); NEUTROPHILS % 61.5 % (39.0-77.0); RED BLOOD COUNT 3.25 10^6/ul (4.20-5.40); RED CELL DISTRIBUTION WIDTH 16.5 % (11.5-14.5); WHITE BLOOD COUNT 2.8 10^3/ul (4.8-10.8)
[2017-06-29 07:18] LABS: POSITIVE DIFF @See below
[2017-06-29 07:19] LABS: PLATELET COUNT 61 10^3/UL (140-415)
[2017-06-29 08:04] LABS: ALBUMIN 2.7 g/dl (3.3-4.9); ALBUMIN/GLOBULIN RATIO 1.03; BILIRUBIN,INDIRECT 0.7 mg/dl (0-1.1); BILIRUBIN,TOTAL 0.7 mg/dl (0.2-1.3); CALCIUM 10.4 mg/dl (8.4-10.2); CREATININE 0.65 mg/dl (0.44-1.00); POTASSIUM 4.3 mmol/L (3.5-5.1); TOTAL PROTEIN 5.3 g/dl (6.1-8.1)
[2017-06-29] MEDS: INSULIN ASPART [NOVOLOG] 3 ML PEN SC SCH ×4 (08:22→12:32)
[2017-06-29] MEDS: INSULIN GLARGINE [LANtus] 3 ML PEN SC SCH (08:23)
[2017-06-29 08:24] LABS: MAGNESIUM 1.9 mg/dl (1.7-2.5); PHOSPHORUS 4.6 mg/dl (2.5-4.9)
[2017-06-29] MEDS: PANTOPRAZOLE (EC) 40 MG TAB PO SCH (08:32)
[2017-06-29] MEDS: LACTULOSE 30ML CUP PO SCH (08:32)
[2017-06-29] MEDS: GABAPENTIN 100 MG CAP PO SCH ×2 (08:32→12:33)
[2017-06-29] MEDS: MECLIZINE 25 MG TAB PO SCH (08:32)
[2017-06-29] MEDS: RIFAXIMIN 550 MG TAB PO SCH (08:33)
[2017-06-29] MEDS: CALCIUM CARBONATE 1.25 GM TAB PO SCH (08:33)
[2017-06-29] MEDS: ISOSORBIDE MONONITRATE 20 MG TAB PO SCH (08:33)
[2017-06-29] MEDS: FUROSEMIDE 20 MG TAB PO SCH (08:33)
--- NOTE | 2017-06-29 11:18 | PDOCDIS ---
Discharge Instructions DIAGNOSIS Discharge Diagnosis Atypical chest pain. CONDITION Patient Condition: Stable HOME CARE INSTRUCTIONS: Special Diet: Carb controlled diet OTHER ORDERS: Other Orders: 1. Resume home medications. 2. Follow a carbohydrate controlled diet. 3. Resume activities as tolerated. 4. Follow-up with your primary care physician 1 week. 5. Please call 911 or go to the nearest emergency room if you have any significant chest pain. MEME SHELTON NP Jun 29, 2017 11:18
--- NOTE | 2017-06-29 12:24 | CONS ---
Date/Time of Note Date/Time of Note DATE: 06/29/17 TIME: 12:23 Assessment/Plan Assessment/Plan Additional Assessment/Plan Chest and abdominal pain Dyspnea Preserved ejection fraction Liver cirrhosis Pancytopenia History of GI bleed Anemia -Serial cardiac enzymes remain negative, echocardiogram with preserved ejection fraction. Patient's symptoms have improved and is asking to go home. No further inpatient cardiac workup needed at the current time Consultation Date/Type/Reason Admit Date/Time Jun 27, 2017 at 15:08 Initial Consult Date 06/28/17 Type of Consultation: cv Referring Provider: MEME SHELTON ENVIRONMENTAL AUDITOR 24 HR Interval Summary Free Text/Dictation Denies shortness of breath, chest pain Exam/Review of Systems Vital Signs Vitals Vital Signs Date Time Temp Pulse Resp B/P Pulse Ox O2 Delivery O2 Flow Rate FiO2 06/29/17 12:12 79 06/29/17 11:07 98.2 17 107/49 96 06/27/17 18:51 Room Air Intake and Output 06/28/17 06/28/17 06/29/17 15:00 23:00 07:00 Intake Total 900 ml 500 ml Balance 900 ml 500 ml Exam No apparent distress Constitutional: alert, oriented Head: normocephalic Respiratory: other (coarse breath sounds bilaterally, no wheezing) Cardiovascular: other (s1 S2 heard), regular rate and rhythm Gastrointestinal: bowel sounds, non-tender, soft Extremities: edema Results Result Diagram: 06/29/17 0637 06/29/17 0637 Results 24 hrs Laboratory Tests Test 06/28/17 14:20 06/28/17 17:41 06/28/17 21:37 06/29/17 02:04 Iron Level 38 Total Iron Binding Capacity 371 Percent Iron Saturation 10 L Ferritin 8.9 L Bedside Glucose 320 H 181 148 Test 06/29/17 06:37 06/29/17 08:09 06/29/17 12:07 White Blood Count 2.8 L Red Blood Count 3.25 L Hemoglobin 8.2 L Hematocrit 25.6 L Mean Corpuscular Volume 78.8 L Mean Corpuscular Hemoglobin 25.2 L Mean Corpuscular Hemoglobin Concent 32.0 Red Cell Distribution Width 16.5 H Platelet Count 61 L Mean Platelet Volume 11.2 H Neutrophils % 61.5 Lymphocytes % 24.6 Monocytes % 10.7 Eosinophils % 2.1 Basophils % 0.7 Nucleated Red Blood Cells % 0.0 Neutrophils # (Manual) 1.7 Lymphocytes # 0.7 L Monocytes # 0.3 Eosinophils # 0.1 Basophils # 0.0 Nucleated Red Blood Cells # 0.0 Sodium Level 138 Potassium Level 4.3 Chloride Level 108 Carbon Dioxide Level 27 Anion Gap 7 L Blood Urea Nitrogen 14 Creatinine 0.65 Glucose Level 169 Calcium Level 10.4 H Phosphorus Level 4.6 Magnesium Level 1.9 Total Bilirubin 0.7 Direct Bilirubin 0.00 Indirect Bilirubin 0.7 Aspartate Amino Transf (AST/SGOT) 42 Alanine Aminotransferase (ALT/SGPT) 32 Alkaline Phosphatase 142 H Ammonia 101 H Total Protein 5.3 L Albumin 2.7 L Globulin 2.60 Albumin/Globulin Ratio 1.03 Bedside Glucose 190 204 Medications Medications Current Medications Ondansetron HCl (Zofran Inj) 4 mg Q6H PRN IV NAUSEA AND/OR VOMITING; Start 06/27 at 16:30 Acetaminophen (Tylenol Tab) 650 mg Q6H PRN PO PAIN LEVEL 1-3 OR FEVER; Start at 16:30 Calcium Carbonate (Oyster Shell Calcium) 1.25 gm BID PO Last administered on 08:33; Admin Dose 1.25 GM; Start 06/27/17 at 21:00 Furosemide (Lasix) 20 mg DAILY PO Last administered on 06/29/17 08:33; Admin Dose 20 MG; Start 06/28/17 at 09:00 Gabapentin (Neurontin) 100 mg TID PO Last administered on 06/29/17 08:32; Admin Dose 100 MG; Start 06/27/17 at 21:00 Isosorbide Mononitrate (Ismo) 20 mg BID PO Last administered on 06/29/17 08:33 ; Admin Dose 20 MG; Start 06/27/17 at 21:00 Lactulose (Enulose) 10 gm BID PO Last administered on 06/29/17 08:32; Admin Dose 10 GM; Start 06/27/17 at 21:00 Meclizine HCl (Antivert) 25 mg DAILY PO Last administered on 06/29/17 08:32; Admin Dose 25 MG; Start 06/28/17 at 09:00 Pantoprazole (Protonix Tab) 40 mg DAILY PO Last administered on 06/29/17 08:32 ; Admin Dose 40 MG; Start 06/27/17 at 17:00 Rifaximin (Xifaxan) 550 mg BID PO Last administered on 06/29/17 08:33; Admin Dose 550 MG; Start 06/27/17 at 21:00 Diagnostic Test (Pha) (Accu-Chek) 1 ea 02 XX Last administered on 06/29/17 02: 23; Admin Dose 1 EA; Start 06/28/17 at 02:00 Insulin Glargine (Lantus) 20 unit DAILY@08 SC Last administered on 06/29/17 08: 23; Admin Dose 20 UNIT; Start 06/28/17 at 08:00 Miscellaneous Information 1 ea NOTE XX ; Start 06/27/17 at 17:00 Glucose (Glutose) 15 gm Q15M PRN PO DECREASED GLUCOSE; Start 06/27/17 at 17:00 Glucose (Glutose) 22.5 gm Q15M PRN PO DECREASED GLUCOSE; Start 06/27/17 at 17:00 Dextrose (D50w Syringe) 25 ml Q15M PRN IV DECREASED GLUCOSE; Start 06/27/17 at 17:00 Dextrose (D50w Syringe) 50 ml Q15M PRN IV DECREASED GLUCOSE; Start 06/27/17 at 17:00 Glucagon (Glucagen) 1 mg Q15M PRN IM DECREASED GLUCOSE; Start 06/27/17 at 17:00 Glucose (Glutose) 15 gm Q15M PRN BUCCAL DECREASED GLUCOSE; Start 06/27/17 at 17: 00 Art Mcfarland DO Jun 29, 2017 12:24
--- NOTE | 2017-06-29 12:27 | DS ---
Date/Time of Note Date/Time of Note DATE: 06/29/17 TIME: 12:25 Discharge Summary Admission/Discharge Info Admit Date/Time Jun 27, 2017 at 15:08 Discharge Date/Time Discharge Diagnosis 1. Atypical chest pain. 2. Type 2 diabetes mellitus. 3. Nonalcoholic liver cirrhosis. 4. Pancytopenia. 5. Left great toe necrotic wound. Patient Condition: Stable Consults 1. Art Mcfarland DO, Cardiology. 2. Obdulia Harper MD, Gastroenterology. Procedures 2D Echocardiogram Normal left ventricular systolic function. Normal left ventricular cavity size. Normal left ventricular wall thickness. Ejection fraction is visually estimated at 65 %. Tissue Doppler/Mitral Doppler indices are consistent with impaired relaxation (Stage I diastolic dysfunction). Normal right ventricular size. Normal right ventricular systolic function. The left atrium is normal in size. The right atrium is normal in size. Aortic sclerosis without stenosis. No aortic regurgitation. Trace mitral regurgitation. Estimated peak PA systolic pressure 24 mmHg. There is trace tricuspid regurgitation. Normal pericardium with no significant pericardial effusion. Hx of Present Illness Reason for admission: Chest pain. Consultants 1. Art Mcfarland DO, Cardiology. This is a 67-year-old [place] female with past medical history of nonalcoholic liver cirrhosis, type 2 diabetes mellitus, and dyslipidemia, who came to the emergency room with chief complaint of chest pain that has been going on for 2 days. The patient verbalized the chest pain as substernal with no radiation. The patient denied any associated diaphoresis, nausea, or vomiting. The patient was complaining of dizziness. She also verbalized exertional dyspnea. She denied any cough. In the emergency room, the patient's initial troponins were negative. The patient was noticed to have pancytopenia. The patient's 12-lead EKG showed normal sinus rhythm. The patient was given a single dose of oral aspirin along with transdermal nitroglycerin with improvement in the patient's chest pain. Hospital Course The patient was admitted to inpatient telemetry floor. A cardiology consult was obtained. The patient serial troponins remained negative. The patient's 2D echocardiogram showed preserved left ventricular ejection fraction. The patient was ruled out for any underlying acute coronary syndrome. The patient refused further testing including any cardiac stress test. On the other hand, the patient has a prior history of esophageal varices status post banding. Cardiology was recommending gastroenterology evaluation to identify any other causes of this atypical chest pain. Consequently, gastroenterology was consulted. Gastroenterology recommended esophagogastroduodenoscopy. However, the patient and the patient's family refused the procedure. Hence gastroenterology signed off from the patient's case. The patient has underlying pancytopenia secondary to nonalcoholic liver cirrhosis. The patient was maintained on her medications for underlying cirrhosis. The patient was also noticed to have a left great toe necrotic ulcer. Consequently, podiatry was informed on the patient's admission to the hospital. Nevertheless, the patient was not seen by podiatry. The patient can follow up with outpatient podiatry regarding this concern. The patient has no evidence of any infection of this wound. Patient has underlying type 2 diabetes mellitus. She was maintained on sliding scale insulin. The patient was noticed to have a hemoglobin A1c of 8.9. The patient was noticed to have significant iron deficiency. Consequently, the patient will be discharged home on iron supplements. The patient was cleared to be discharged home by cardiology since there is no further cardiac workup. The patient and the patient's family refused any gastroenterology workup. Therefore, the patient will be discharged home to be followed up with outpatient primary care physician. Discharge Instructions 1. Resume home medications. 2. Follow a carbohydrate controlled diet. 3. Resume activities as tolerated. 4. Follow-up with your primary care physician 1 week. 5. Please call 911 or go to the nearest emergency room if you have any significant chest pain. Patient verbalized understanding of her discharge instructions. At this time I would like to thank all the consultants for seeing the patient and providing clinical recommendations. The case and management of this patient was fully discussed with Dr. Swift. Home Meds Active Scripts Ferrous Sulfate* (Ferrous Sulfate*) 325 Mg Tabec, 325 MG PO BID, #60 TAB Prov:MEME SHELTON NP 06/29/17 Pantoprazole* (Protonix*) 40 Mg Tablet., 40 MG PO DAILY, #14 TAB Prov:BRANDON VOSS MD 09/02/16 Reported Medications Calcium Carbonate ([id number]) 500 Mg Tablet, 500 MG PO BID, TAB 06/27/17 Insulin Detemir (Levemir) 100 Unit/1 Ml Vial, 60 UNIT SC QHS, VIAL 06/27/17 Insulin Aspart* (Novolog Insulin Pen*) 100 Unit/Ml Soln, 20 UNIT SC QAM, EA 06/27/17 Isosorbide Mononitrate* (Isosorbide Mononitrate*) 20 Mg Tablet, 20 MG PO BID, TAB 09/02/16 Ibuprofen* (Ibuprofen*) 600 Mg Tablet, 600 MG PO DAILY Y for PAIN, TAB 09/02/16 Lactulose* (Lactulose*) 10 Gm/15 Ml Solution, 10 GM PO BID, ML 09/02/16 Gabapentin* (Gabapentin*) 100 Mg Capsule, 100 MG PO TID, CAP 02/28/15 Rifaximin* (Xifaxan*) 550 Mg Tablet, 550 MG PO BID 02/26/14 Meclizine Hcl* (Meclizine Hcl*) 25 Mg Tablet, 25 MG PO DAILY 04/17/13 Furosemide* (Lasix*) 20 Mg Tablet, 20 MG PO DAILY 04/17/13 Discontinued Reported Medications Cyanocobalamin* (Vitamin B-12*) 1,000 Mcg Tablet.sa, 1000 MCG PO DAILY, TAB 09/02/16 Carbidopa/Levodopa (CARBIDOPA-LEVO 10-100 MG ODT) 1 Each Tab.rapdis, 1 TAB PO BID, #60 TAB 09/02/16 Dexlansoprazole (Dexilant) 60 Mg Cap., 60 MG PO DAILY, #30 CAP 09/02/16 Spironolactone* (Aldactone*) 50 Mg Tablet, 50 MG PO TID 04/17/13 Follow-up Plan Follow-up with your primary care physician in 1 week. Primary Care Provider Not On Staff Doctor Time spent on discharge: > 30 minutes Pending Labs Laboratory Tests Test 06/28/17 14:20 06/28/17 17:41 06/28/17 21:37 06/29/17 02:04 Iron Level 38ug/dl (35-150) Total Iron Binding Capacity 371ug/dl (241-421) Percent Iron Saturation 10% SAT (22-52) Ferritin 8.9ng/ml (11.1-264.0) Bedside Glucose 320mg/dL (70-220) 181mg/dL (70-220) 148mg/dL (70-220) Test 06/29/17 06:37 06/29/17 08:09 06/29/17 12:07 White Blood Count 2.810^3/ul (4.8-10.8) Red Blood Count 3.2510^6/ul (4.20-5.40) Hemoglobin 8.2g/dl (12.0-16.0) Hematocrit 25.6% (37.0-47.0) Mean Corpuscular Volume 78.8fl (82.0-101.0) Mean Corpuscular Hemoglobin 25.2pg (29.0-33.0) Mean Corpuscular Hemoglobin Concent 32.0g/dl (32.0-37.0) Red Cell Distribution Width 16.5% (11.5-14.5) Platelet Count 6110^3/UL (140-415) Mean Platelet Volume 11.2fl (7.4-10.4) Neutrophils % 61.5% (39.0-77.0) Lymphocytes % 24.6% (15.0-51.0) Monocytes % 10.7% (0.0-11.0) Eosinophils % 2.1% (0.0-7.0) Basophils % 0.7% (0.0-2.0) Nucleated Red Blood Cells % 0.0/100WBC (0.0-0.0) Neutrophils # (Manual) 1.710^3/ul (1.7-7.5) Lymphocytes # 0.710^3/ul (0.8-2.9) Monocytes # 0.310^3/ul (0.3-0.9) Eosinophils # 0.110^3/ul (0.0-0.5) Basophils # 0.010^3/ul (0.0-0.1) Nucleated Red Blood Cells # 0.010^3/ul (0.0-0.0) Sodium Level 138mmol/L (135-144) Potassium Level 4.3mmol/L (3.5-5.1) Chloride Level 108mmol/L (97-110) Carbon Dioxide Level 27mmol/L (21-31) Anion Gap 7 (8-16) Blood Urea Nitrogen 14mg/dl (7-20) Creatinine 0.65mg/dl (0.44-1.00) Glucose Level 169mg/dl (70-220) Calcium Level 10.4mg/dl (8.4-10.2) Phosphorus Level 4.6mg/dl (2.5-4.9) Magnesium Level 1.9mg/dl (1.7-2.5) Total Bilirubin 0.7mg/dl (0.2-1.3) Direct Bilirubin 0.00mg/dl (0.00-0.20) Indirect Bilirubin 0.7mg/dl (0-1.1) Aspartate Amino Transf (AST/SGOT) 42IU/L (15-46) Alanine Aminotransferase (ALT/SGPT) 32IU/L (13-69) Alkaline Phosphatase 142IU/L (42-121) Ammonia 101umol/l (9-30) Total Protein 5.3g/dl (6.1-8.1) Albumin 2.7g/dl (3.3-4.9) Globulin 2.60g/dl (1.3-3.2) Albumin/Globulin Ratio 1.03 Bedside Glucose 190mg/dL (70-220) 204mg/dL (70-220) MEME SHELTON NP Jun 29, 2017 12:27
[2017-06-29] MEDS ORDERED: FER325 PO (12:36)
== END 2017-06-29 13:17 | disposition home or self-care (01) ==
LOC: E/R 11:37 → MS3 15:08 → TEL 20:19
PROVIDERS: ADMIT Internal Medicine; ATTEND Internal Medicine
DX: R07.89 Other chest pain (principal); E11.9 Type 2 diabetes mellitus without complications; Z79.4 Long term (current) use of insulin; K74.60 Unspecified cirrhosis of liver; I10 Essential (primary) hypertension; F32.9 Major depressive disorder, single episode, unspecified; D61.818 Other pancytopenia; I96 Gangrene, not elsewhere classified; Z88.6 Allergy status to analgesic agent; Z88.5 Allergy status to narcotic agent
CPT/HCPCS: 36415; 71010; 80053; 80061; 82140; 82550; 82553; 82652; 82728; 82962; 83036; 83540; 83735; 84100; 84439; 84443; 84484; 85025; 85610; 85730; 93005; 93306; 96372; 99285; G0378; J1815; J2185

== ENCOUNTER 2017-12-19 23:30 | Inpatient (IN) | END 2017-12-24 16:17 | disposition home or self-care (01) | DRG 392 ==

== ENCOUNTER 2018-05-27 01:17 | Emergency (ER) | END 2018-05-28 15:30 | disposition home or self-care (01) ==

== ENCOUNTER 2018-09-03 19:33 | Inpatient (IN) | END 2018-09-07 14:40 | disposition home health service (06) | DRG 441 ==

== ENCOUNTER 2019-01-24 15:01 | Inpatient (IN) | payer MEDICARE, OTHER ==
[~2019-01-24] VITALS: Ht 167.6 cm; Wt 65.6 kg
[~2019-01-24 15:01] MED LIST changes: +ASCO500C7 PO; +CALC500T91 PO; -CARB1TAB45 PO; +CHOL400T10 PO; +CLOT15CR6 TOP; -CYAN100080 PO; -DEXL60CA2 PO; -IBUP-1542 PO; -INSU100I27 SQ; -ISM20 PO; -LACT10SO5 PO; +LACT20SO2 PO; +LEVEM SC; +METO10TA92 PO; +MTF1000T PO; +MULT-853 PO; -NOVO3I SC; -SPIR50TA31 PO
[2019-01-24 15:25] VITALS: Ht 167.6 cm; Wt 65.6 kg
[2019-01-24] MEDS ORDERED: CEFTRIAXONE 1 GM/50 ML (PMX) 50 ML IVPB STA (15:39)
[2019-01-24] MEDS ORDERED: SODIUM CHLORIDE 0.9% 1L BAG IV* STA (15:39)
[2019-01-24] MEDS ORDERED: ACETAMINOPHEN 325 MG TAB PO PRN (17:30)
[2019-01-24] MEDS ORDERED: LACTULOSE 30ML CUP PO ONE (17:30)
[2019-01-24] MEDS ORDERED: ONDANSETRON 4 MG INJ IV PRN (17:30)
[2019-01-24] MEDS ORDERED: FER325 PO (17:40)
[2019-01-24] MEDS ORDERED: MECL-77 PO (17:41)
[2019-01-24] MEDS ORDERED: PANT40TA4 PO (17:41)
[2019-01-24] MEDS ORDERED: RIFA550T4 PO (17:42)
[2019-01-24] MEDS ORDERED: METF100010 PO (17:44)
[2019-01-24] MEDS ORDERED: ACET500C PO (17:45)
[2019-01-24] MEDS ORDERED: SPIR50TA PO (17:46)
[2019-01-24] MEDS ORDERED: FURO20TA3 PO (17:46)
[2019-01-24] MEDS ORDERED: LEVEM (17:49)
[2019-01-24] MEDS ORDERED: DIFL5DRO OP (17:50)
[2019-01-24] MEDS ORDERED: NOVO3I SC (17:50)
[2019-01-24] MEDS ORDERED: BESI5DRO OP (17:51)
[2019-01-24] MEDS ORDERED: NEPA1.7D OP (17:51)
--- NOTE | 2019-01-24 18:51 | ERD ---
ER Documentation Chief Complaint Chief Complaint Fall x 2 since yesterday hx of dementia HPI Patient is a 68-year-old female with dementia and cirrhosis who presents with altered mental status. Please note the history and physical exam is limited secondary to the patient's mental status at this time and she is nonverbal. The patient was brought in by ambulance. She had 2 falls since yesterday. She has dementia but this is more altered than usual per her daughter. ROS All systems reviewed and are negative except as per history of present illness. Medications Home Meds Reported Medications Nepafenac (ILEVRO) 1.7 Ml Drops.susp, 1.7 ML OP 01/24/19 Besifloxacin Hydrochloride (Besivance) 5 Ml Drops.susp, 5 ML OP 01/24/19 Difluprednate (Durezol) 5 Ml Drops, 5 ML OP, BOTTLE 01/24/19 Insulin Aspart* (Novolog Insulin Pen*) 100 Unit/Ml Soln, 12 UNIT SC, EA THE DAUGHTER UNABLE TO VERIFIED FREQUENCY 01/24/19 Insulin Detemir (Levemir) 100 Unit/1 Ml Vial, 60 UNITS THE DAUGHTER UNABLE TO VERIFIED FREQUENCY 01/24/19 Furosemide* (Furosemide*) 20 Mg Tablet, 20 MG PO DAILY, #60 TAB 01/24/19 Spironolactone* (Aldactone*) 50 Mg Tablet, 50 MG PO DAILY, #30 TAB 01/24/19 Acetazolamide* (Acetazolamide* ER) 500 Mg Capsule.er, 500 MG PO BID, #60 CAP 01/24/19 Metformin Hcl* (Metformin Hcl*) 1,000 Mg Tablet, 1000 MG PO WITH BREAKFAST, #30 TAB 01/24/19 Rifaximin* (Xifaxan*) 550 Mg Tablet, 550 MG PO DAILY, TAB 01/24/19 Pantoprazole* (Pantoprazole*) 40 Mg Tablet.dr, 40 MG PO AC BREAKFAST, TAB 01/24/19 Meclizine Hcl* (Meclizine Hcl*) 25 Mg Tablet, 25 MG PO DAILY PRN for DIZZINESS, TAB 01/24/19 Ferrous Sulfate* (Ferrous Sulfate*) 325 Mg Tabec, 325 MG PO DAILY, TAB 01/24/19 Discontinued Reported Medications Multivits-Min/Iron/FA/Lutein (Centrum Silver Women Tablet) 1 Each Tablet, 1 EACH PO, TAB 09/03/18 Cholecalciferol* (Vitamin D*) 400 Unit Tablet, 400 UNIT PO DAILY, TAB 09/03/18 Ascorbic Acid* (Vitamin C*) 500 Mg Capsule.sa, 500 MG PO DAILY, CAP 09/03/18 Metformin* (Glucophage*) 1,000 Mg Tablet, 1000 MG PO QHS, #60 TAB 09/03/18 Clotrimazole-Betamethasone Diprop (Clotrimazole-Betamethasone Diprop) 15 Gm Cream.gm., 1 APPLIC TOP BID, TUB 09/03/18 Meclizine Hcl* (Meclizine Hcl*) 25 Mg Tablet, 25 MG PO Q8H PRN for DIZZINESS, TAB 09/03/18 Calcium Carbonate ([id number]) 500 Mg Tablet, 500 MG PO BID, TAB 06/27/17 Gabapentin* (Gabapentin*) 100 Mg Capsule, 100 MG PO TID PRN for DECREASED NEURO STATUS, CAP 02/28/15 Rifaximin* (Xifaxan*) 550 Mg Tablet, 550 MG PO BID 02/26/14 Furosemide* (Lasix*) 20 Mg Tablet, 20 MG PO DAILY 04/17/13 Discontinued Scripts Lactulose* (Lactulose*) 20 Gm/30 Ml Solution, 20 GM PO Q6H for CONSTIPATION for 30 Days, #1 BOT 6 Refills Prov:CHAVO BARBOUR MD 09/07/18 Insulin Detemir (Levemir) 100 Unit/1 Ml Vial, 20 UNIT SC BID for 30 Days, #1 VIAL 6 Refills Prov:CHAVO BARBOUR MD 09/07/18 Metoclopramide* (Reglan*) 10 Mg Tablet, 10 MG PO AC MEALS for 30 Days, #90 TAB Prov:ASH CAI NP 05/28/18 Pantoprazole* (Protonix*) 40 Mg Tablet.dr, 40 MG PO DAILY, #30 TAB Prov:MEME SHELTON NP 12/24/17 Allergies Allergies: Coded Allergies: morphine (Unverified Allergy, Mild, 01/24/19) FACIAL REDNESS aspirin (Unverified Adverse Reaction, Unknown, 01/24/19) PMhx/Soc History of Surgery: No Anesthesia Reaction: No Hx Neurological Disorder: Yes (dementia) Hx Respiratory Disorders: No Hx Cardiac Disorders: No Hx Psychiatric Problems: No Hx Miscellaneous Medical Probl: Yes (nonalcoholic liver cirrhosis, DM .) Hx Alcohol Use: No Hx Substance Use: No Hx Tobacco Use: No Smoking Status: Unknown if ever smoked FmHx Unable to obtain Physical Exam Vitals Vital Signs Date Temp Pulse Resp B/P (MAP) Pulse Ox O2 O2 Flow FiO2 Time Delivery Rate 01/24/19 97.8 92 18 168/54 100 15:25 (92) Physical Exam Const: No acute distress Head: Atraumatic Eyes: Normal Conjunctiva ENT: Normal External Ears, Nose and Mouth. Neck: Full range of motion. No meningismus. Resp: Clear to auscultation bilaterally Cardio: Regular rate and rhythm, no murmurs Abd: Soft, non tender, non distended. Normal bowel sounds Skin: No petechiae or rashes Back: No midline or flank tenderness Ext: No cyanosis, or edema Neur: Awake and alert Psych: Normal Mood and Affect Result Diagram: 01/24/19 1538 01/24/19 1538 Results 24 hrs Laboratory Tests Test 01/24/19 15:38 01/24/19 15:39 01/24/19 16:10 01/24/19 16:20 White Blood Count 4.4 10^3/ul Red Blood Count 2.99 10^6/ul Hemoglobin 9.5 g/dl Hematocrit 27.8 % Mean Corpuscular 93.0 fl Volume Mean Corpuscular 31.8 pg Hemoglobin Mean Corpuscular 34.2 g/dl Hemoglobin Concent Red Cell Distribution 15.8 % Width Platelet Count 68 10^3/UL Mean Platelet Volume 10.4 fl Immature Granulocytes 0.200 % % Neutrophils % 79.2 % Segmented Neutrophils 85 % % (Manual) Lymphocytes % 14.6 % Lymphocytes % (Manual) 11 % Monocytes % 5.5 % Monocytes % (Manual) 4 % Eosinophils % 0.0 % Basophils % 0.5 % Nucleated Red Blood 0.0 /100WBC Cells % Immature Granulocytes 0.010 10^3/ul # Neutrophils # 3.5 10^3/ul Lymphocytes (Manual) 0.4 10^3/ul Lymphocytes # 0.6 10^3/ul Monocytes # 0.2 10^3/ul Monocytes # (Manual) 0.1 10^3/ul Eosinophils # 0.0 10^3/ul Basophils # 0.0 10^3/ul Nucleated Red Blood 0.0 10^3/ul Cells # Platelet Estimate DECREASED Polychromasia 1+ Anisocytosis 1+ Microcytosis 1+ Sodium Level 141 mmol/L Potassium Level 4.5 mmol/L Chloride Level 112 mmol/L Carbon Dioxide Level 17 mmol/L Anion Gap 12 Blood Urea Nitrogen 17 mg/dl Creatinine 0.85 mg/dl Est Glomerular Filtrat > 60 mL/min Rate mL/min Glucose Level 211 mg/dl Calcium Level 10.9 mg/dl Total Bilirubin 1.7 mg/dl Direct Bilirubin 0.00 mg/dl Indirect Bilirubin 1.7 mg/dl Aspartate Amino 46 IU/L Transf (AST/SGOT) Alanine 24 IU/L Aminotransferase (ALT/ SGPT) Alkaline Phosphatase 110 IU/L Total Protein 7.2 g/dl Albumin 3.7 g/dl Globulin 3.50 g/dl Albumin/Globulin Ratio 1.05 Salicylates Level < 1.0 mg/dl Acetaminophen Level < 10.0 ug/ml Ethyl Alcohol Level < 10.0 mg/dl POC Venous Lactate 3.1 mmol/L Lactic Acid Level 3.7 mmol/L Ammonia 147 umol/l Current Medications Medications Dose Sig/Grant Start Time Status Last (Trade) Ordered Route PRN Stop Time Admin Dose Reason Admin Sodium 1,800 ml BOLUS OVER 2 01/24/19 DC 01/24/19 Chloride HOURS STAT 15:39 01/24/19 16:27 (NS) IV* 15:41 Ceftriaxone 50 ml @ ONCE STAT 01/24/19 DC 01/24/19 Sodium 100 mls/hr IVPB 15:39 01/24/19 15:39 16:08 Procedures/MDM CT brain negative for bleed per radiology. CT cervical spine read by radiology. Patient is a 68-year-old female who presents altered. She was found to have hyperammonemia with an elevated ammonia level. She cannot be given lactulose in the emergency department as she did not pass a swallow evaluation. She will either need NG tube on the floor or rectal lactulose. She will be admitted to the care of Dr. Barbour from the panel team. She does require medical surgical inpatient admission at this time. She has an elevated lactic acid of greater than 3 but at this point I doubt sepsis and see no sign of infection. I believe the elevated lactic acid is likely related to dehydration and high ammonia. Departure Diagnosis: Primary Impression: Hyperammonemia Additional Impressions: Altered mental status Altered mental status type: unspecified Qualified Codes: R41.82 - Altered mental status, unspecified Fall Encounter type: initial encounter Qualified Codes: W19.XXXA - Unspecified fall, initial encounter Condition: KENDALL Garza MD Jan 24, 2019 18:51
[2019-01-24] MEDS ORDERED: SOD CHLORIDE 0.9% 1,000 ML IV SCH (19:00)
[2019-01-24] MEDS ORDERED: MECLIZINE 25 MG TAB PO PRN (19:00)
--- NOTE | 2019-01-24 19:03 | HP ---
Date/Time of Note Date/Time of Note DATE: 01/24/19 TIME: 18:46 Assessment/Plan VTE Prophylaxis SCD applied (from Nsg): Yes Pharmacological prophylaxis: NA/contraindicated Pharm contraindication: liver dx Lines/Catheters IV Catheter Type (from Nrsg): Saline Lock Assessment/Plan Assessment/Plan 1. Acute hepatic encephalopathy - Patient noted with elevated ammonia level. Continue on Rifaximin and Lactulose and will titrate to 3-4 BMs daily - CT head performed with no acute abnormalities - monitor for improvement in mentation - ?if new medication, acetazolamide is contributing vs worsening of dementia 2. DM - will check A1c - A1c from 08/2018 was 5.4 so will hold off on ISS and accuchecks for now - holding Metformin 3. Lactic Acidosis - patient appears dehydrated and on Metformin which is most likely etiology of elevated lactate levels 4. Hypercalcemia - possibly due to dehydration. if remains elevated following fluids will workup 5. Dehydration - will give 1 day of NS and reassess fluid status 6. Hyperammonemia - 147 - continue on lactulose and rifaximin 7. h/o Glaucoma - will ask daughter to bring eye drops from home since not available in our pharmacy - will hold off on acetazolamide for now given may be contributing to confusion 8. Diet - cardiac 9. Disposition - Admit for treatment of acute hepatic encephalopathy. Will monitor for improvement in neurological status and discharge home once at baseline = Result Diagram: 01/24/19 1538 01/24/19 1538 Results 24hrs Laboratory Tests Test 01/24/19 15:38 01/24/19 15:39 01/24/19 16:10 01/24/19 16:20 White Blood Count 4.4 #L Red Blood Count 2.99 L Hemoglobin 9.5 L Hematocrit 27.8 L Mean Corpuscular Volume 93.0 Mean Corpuscular 31.8 Hemoglobin Mean Corpuscular 34.2 Hemoglobin Concent Red Cell Distribution 15.8 H Width Platelet Count 68 L Mean Platelet Volume 10.4 Immature Granulocytes % 0.200 Neutrophils % 79.2 H Segmented Neutrophils 85 H % (Manual) Lymphocytes % 14.6 L Lymphocytes % (Manual) 11 L Monocytes % 5.5 Monocytes % (Manual) 4 Eosinophils % 0.0 Basophils % 0.5 Nucleated Red Blood 0.0 Cells % Immature Granulocytes # 0.010 Neutrophils # 3.5 Lymphocytes (Manual) 0.4 L Lymphocytes # 0.6 L Monocytes # 0.2 L Monocytes # (Manual) 0.1 L Eosinophils # 0.0 Basophils # 0.0 Nucleated Red Blood 0.0 Cells # Platelet Estimate DECREASED Polychromasia 1+ Anisocytosis 1+ Microcytosis 1+ Sodium Level 141 Potassium Level 4.5 Chloride Level 112 H Carbon Dioxide Level 17 L Anion Gap 12 Blood Urea Nitrogen 17 Creatinine 0.85 Est Glomerular Filtrat > 60 Rate mL/min Glucose Level 211 Calcium Level 10.9 H Total Bilirubin 1.7 H Direct Bilirubin 0.00 Indirect Bilirubin 1.7 H Aspartate Amino 46 Transf (AST/SGOT) Alanine 24 Aminotransferase (ALT/SG PT) Alkaline Phosphatase 110 Total Protein 7.2 Albumin 3.7 Globulin 3.50 H Albumin/Globulin Ratio 1.05 Salicylates Level < 1.0 L Acetaminophen Level < 10.0 L Ethyl Alcohol Level < 10.0 H POC Venous Lactate 3.1 *H Lactic Acid Level 3.7 *H Ammonia 147 H HPI/ROS Admit Date/Time Admit Date/Time Jan 24, 2019 at 17:21 Hx of Present Illness 68 yo F with PMH liver cirrhosis and Alzheimer's dementia secondary to VILLAFANA presented to ED secondary to altered mental status. Patient is a poor historian and daughter is at bedside. History obtained form daughter. Per daughter, patient has been able to recognize her but today was more confused and didn't know who she was. She underwent cataract surgery 2 days ago and was started on Acetazolamide which shes concerned may be causing the confusion. Patient has been taking all medications as prescribed. Patient was admitted Aug 2018 for AMS which daughter states these symptoms are the same as previous admission. In the ED patient was found with an elevated ammonia level of 147. ROS All 12 systems reviewed and pertinent positives as per HPI. Unable to obtain proper ROS due to AMS. Constitutional: disoriented PMH/Family/Social Past Medical History Medical History: other (liver cirrhosis, dementia) Medications Current Medications Ondansetron HCl (Zofran Inj) 4 mg BRIDGE ORDER PRN IV NAUSEA/VOMITING; Start 01/24/19 at 17:30; Stop 01/25/19 at 17:29 Acetaminophen (Tylenol Tab) 650 mg ER BRIDGE PRN PO .MILD PAIN 1-3 OR TEMP; Start 01/24/19 at 17:30; Stop 01/25/19 at 17:29 Ferrous Sulfate (Ferrous Sulfate (Ec)) 325 mg DAILY PO ; Start 01/25/19 at 09:00; Status UNV Furosemide (Lasix) 20 mg DAILY PO ; Start 01/25/19 at 09:00; Status UNV Insulin Aspart (Novolog Insulin Pen) 12 unit WITH MEALS SC ; Start 01/25/19 at 07:35; Status UNV Insulin Detemir (Levemir) 60 units DAILY SC ; Start 01/25/19 at 09:00; Status UNV Meclizine HCl (Antivert) 25 mg DAILY PRN PO DIZZINESS; Start 01/24/19 at 19:00; Status UNV Pantoprazole (Protonix Tab) 40 mg AC BREAKFAST PO ; Start 01/25/19 at 07:30; Status UNV Rifaximin (Xifaxan) 550 mg DAILY PO ; Start 01/25/19 at 09:00; Status UNV Spironolactone (Aldactone) 50 mg DAILY PO ; Start 01/25/19 at 09:00; Status UNV Lactulose (Enulose) 20 gm Q8 PO ; Start 01/24/19 at 22:00; Status UNV Sodium Chloride 1,000 ml @ 60 mls/hr [id number] IV ; Start 01/24/19 at 19:00; Stop 01/25/19 at 18:59; Status UNV Coded Allergies: morphine (Unverified Allergy, Mild, 01/24/19) FACIAL REDNESS aspirin (Unverified Adverse Reaction, Unknown, 01/24/19) Past Surgical History Past Surgical Hx: other (2010) Family History Significant Family History: no pertinent family hx Social History Alcohol Use: none Smoking Status: Unknown if ever smoked Drug Use: none Exam/Review of Systems Vital Signs Vitals Vital Signs Date Temp Pulse Resp B/P (MAP) Pulse Ox O2 O2 Flow FiO2 Time Delivery Rate 01/24/19 86 16 154/61 99 Room Air 17:57 (92) 01/24/19 97.8 15:25 Exam Exam General: Patient is laying in bed, no acute distress. pleasantly confused Head: Normocephalic atraumatic Eyes: EOMI, right eye with cover due to recent cataract surgery Neck: Supple, nontender, midline Respiratory: Clear to auscultation bilaterally. no wheezing or rhonchi Cardiovascular: S1, S2, regular rate and rhythm, no obvious murmurs Gastrointestinal: soft, non-tender to palpation, nondistended, bowel sounds heard. no rebound or guarding Ext: Moves all extremities spontaneously. no cyanosis, edema, or clubbing Skin: No new skin lesions. Additional Comments Home medications reviewed CHAVO TAFOYA MD Jan 24, 2019 19:03
[2019-01-24 20:25] VITALS: BP 148/65; PULSE 90; RESP 18
[2019-01-24] MEDS: ACETAZOLAMIDE (SR) 500 MG CAP PO SCH (22:02)
[2019-01-24] MEDS: LACTULOSE 30ML CUP PO SCH (22:02)
[2019-01-24] MEDS ORDERED: HALOPERIDOL 5 MG INJ IM ONE (23:30)
[2019-01-25 02:00] VITALS: BP 127/79; PULSE 96; RESP 20
[2019-01-25] MEDS: LACTULOSE 30ML CUP PO SCH ×3 (06:06→18:07)
[2019-01-25 08:00] VITALS: BP 151/75; PULSE 98; RESP 20
[2019-01-25] MEDS: INSULIN ASPART [NOVOLOG] 3 ML PEN SC SCH ×3 (08:44→17:35)
[2019-01-25] MEDS: INSULIN GLARGINE [LANTus] (100 UNITS/ML) SYG SC SCH (08:45)
[2019-01-25] MEDS: SPIRONOLACTONE 50 MG TAB PO SCH (08:51)
[2019-01-25] MEDS: FERROUS SULFATE (EC) 325 MG TAB PO SCH (08:52)
[2019-01-25] MEDS: FUROSEMIDE 20 MG TAB PO SCH (08:52)
[2019-01-25] MEDS: RIFAXIMIN 550 MG TAB PO SCH (08:52)
[2019-01-25] MEDS: PANTOPRAZOLE (EC) 40 MG TAB PO SCH (08:56)
--- NOTE | 2019-01-25 09:13 | PN ---
Date/Time of Note Date/Time of Note DATE: 01/25/19 TIME: 09:13 Assessment/Plan VTE Prophylaxis Risk score (from Ns)>0 risk: 3 SCD applied (from [facility]): No SCD contraindicated: low risk/ambulating Pharmacological prophylaxis: NA/contraindicated Pharm contraindication: liver dx, thrombocytopenia Lines/Catheters IV Catheter Type (from [facility]): Peripheral IV Urinary Cath still in place: No Assessment/Plan Assessment/Plan 1. Acute hepatic encephalopathy - patient remains pleasantly confused. Will adjust lactulose dose and monitor for BMs. Ammonia level still elevated but trending downward - CT head performed with no acute abnormalities - Discussed medications with daughter and she requested for Diamox to be held. Understands risks of holding medication but she believes her mothers mentation declined following the start of this medication 2. Urinary retention - will have harmon placed in setting of AMS. once mentation improves, will d/c harmon 3. DM - A1c noted. No need for ISS at this time - holding Metformin 3. Lactic Acidosis- improving - patient appears dehydrated and on Metformin which is most likely etiology of elevated lactate levels 4. Hypercalcemia - possibly due to dehydration. continue fluids 5. Hyperammonemia- improving - 147 - continue on lactulose and rifaximin. Increasing lactulose until passing BM and then will titrate for 3-4 BM a day 6. h/o Glaucoma - continue home eye drops - hold off on Diamox for now 7. Disposition - Will adjust Lactulose dose for 3-4 BMs daily and monitor for improvement in mentation Result Diagram: 01/25/19 0552 01/25/19 0552 Results 24hrs Laboratory Tests Test 01/24/19 15:38 01/24/19 15:39 01/24/19 16:10 01/24/19 16:20 White Blood Count 4.4 #L Red Blood Count 2.99 L Hemoglobin 9.5 L Hematocrit 27.8 L Mean Corpuscular Volume 93.0 Mean Corpuscular 31.8 Hemoglobin Mean Corpuscular 34.2 Hemoglobin Concent Red Cell Distribution 15.8 H Width Platelet Count 68 L Mean Platelet Volume 10.4 Immature Granulocytes % 0.200 Neutrophils % 79.2 H Segmented Neutrophils 85 H % (Manual) Lymphocytes % 14.6 L Lymphocytes % (Manual) 11 L Monocytes % 5.5 Monocytes % (Manual) 4 Eosinophils % 0.0 Basophils % 0.5 Nucleated Red Blood 0.0 Cells % Immature Granulocytes # 0.010 Neutrophils # 3.5 Lymphocytes (Manual) 0.4 L Lymphocytes # 0.6 L Monocytes # 0.2 L Monocytes # (Manual) 0.1 L Eosinophils # 0.0 Basophils # 0.0 Nucleated Red Blood 0.0 Cells # Platelet Estimate DECREASED Polychromasia 1+ Anisocytosis 1+ Microcytosis 1+ Sodium Level 141 Potassium Level 4.5 Chloride Level 112 H Carbon Dioxide Level 17 L Anion Gap 12 Blood Urea Nitrogen 17 Creatinine 0.85 Est Glomerular Filtrat > 60 Rate mL/min Glucose Level 211 Hemoglobin A1c 5.3 Calcium Level 10.9 H Total Bilirubin 1.7 H Direct Bilirubin 0.00 Indirect Bilirubin 1.7 H Aspartate Amino 46 Transf (AST/SGOT) Alanine 24 Aminotransferase (ALT/SG PT) Alkaline Phosphatase 110 Total Protein 7.2 Albumin 3.7 Globulin 3.50 H Albumin/Globulin Ratio 1.05 Salicylates Level < 1.0 L Acetaminophen Level < 10.0 L Ethyl Alcohol Level < 10.0 H POC Venous Lactate 3.1 *H Lactic Acid Level 3.7 *H Ammonia 147 H Test 01/25/19 05:52 01/25/19 08:42 White Blood Count 5.0 Red Blood Count 2.82 L Hemoglobin 8.8 L Hematocrit 26.2 L Mean Corpuscular Volume 92.9 Mean Corpuscular 31.2 Hemoglobin Mean Corpuscular 33.6 Hemoglobin Concent Red Cell Distribution 15.6 H Width Platelet Count 68 L Mean Platelet Volume 10.5 H Immature Granulocytes % 0.400 Neutrophils % 74.7 Lymphocytes % 17.1 Monocytes % 7.0 Eosinophils % 0.4 Basophils % 0.4 Nucleated Red Blood 0.0 Cells % Immature Granulocytes # 0.020 Neutrophils # 3.8 Lymphocytes # 0.9 Monocytes # 0.4 Eosinophils # 0.0 Basophils # 0.0 Nucleated Red Blood 0.0 Cells # Sodium Level 145 H Potassium Level 3.8 Chloride Level 117 H Carbon Dioxide Level 16 L Anion Gap 12 Blood Urea Nitrogen 18 Creatinine 0.75 Est Glomerular Filtrat > 60 Rate mL/min Glucose Level 189 Calcium Level 10.6 H Magnesium Level 1.7 Total Bilirubin 1.3 Direct Bilirubin 0.00 Indirect Bilirubin 1.3 H Aspartate Amino 50 H Transf (AST/SGOT) Alanine 23 Aminotransferase (ALT/SG PT) Alkaline Phosphatase 99 Total Protein 7.0 Albumin 3.7 Globulin 3.30 H Albumin/Globulin Ratio 1.12 Bedside Glucose 233 H Subjective 24 Hr Interval Summary Free Text/Dictation Patient still confused. No BM and no urine output noted. Discussed medications with daughter and requesting for diamox to be held given patients mentation changes following start of med. Exam/Review of Systems Exam Vitals Vital Signs Date Temp Pulse Resp B/P (MAP) Pulse Ox O2 O2 Flow FiO2 Time Delivery Rate 01/25/19 98.0 98 20 151/75 99 Room Air 08:00 (100) Intake and Output 01/24/19 01/24/19 01/25/19 1515:00 23:00 07:00 IntakeIntake Total 620 ml BalanceBalance 620 ml Exam General: Patient is laying in bed, mild labored breathing. pleasantly confused Head: Normocephalic atraumatic Eyes: EOMI, right eye with cover due to recent cataract surgery Neck: Supple, nontender, midline Respiratory: Crackles at bases, tachypnea, no wheezing appreciated Cardiovascular: S1, S2, regular rate and rhythm, no obvious murmurs Gastrointestinal: soft, non-tender to palpation, nondistended, bowel sounds heard. no rebound or guarding Ext: Moves all extremities spontaneously. no cyanosis, edema, or clubbing Skin: No new skin lesions. Results Results 24hrs Laboratory Tests Test 01/24/19 15:38 01/24/19 15:39 01/24/19 16:10 01/24/19 16:20 White Blood Count 4.4 #L Red Blood Count 2.99 L Hemoglobin 9.5 L Hematocrit 27.8 L Mean Corpuscular Volume 93.0 Mean Corpuscular 31.8 Hemoglobin Mean Corpuscular 34.2 Hemoglobin Concent Red Cell Distribution 15.8 H Width Platelet Count 68 L Mean Platelet Volume 10.4 Immature Granulocytes % 0.200 Neutrophils % 79.2 H Segmented Neutrophils 85 H % (Manual) Lymphocytes % 14.6 L Lymphocytes % (Manual) 11 L Monocytes % 5.5 Monocytes % (Manual) 4 Eosinophils % 0.0 Basophils % 0.5 Nucleated Red Blood 0.0 Cells % Immature Granulocytes # 0.010 Neutrophils # 3.5 Lymphocytes (Manual) 0.4 L Lymphocytes # 0.6 L Monocytes # 0.2 L Monocytes # (Manual) 0.1 L Eosinophils # 0.0 Basophils # 0.0 Nucleated Red Blood 0.0 Cells # Platelet Estimate DECREASED Polychromasia 1+ Anisocytosis 1+ Microcytosis 1+ Sodium Level 141 Potassium Level 4.5 Chloride Level 112 H Carbon Dioxide Level 17 L Anion Gap 12 Blood Urea Nitrogen 17 Creatinine 0.85 Est Glomerular Filtrat > 60 Rate mL/min Glucose Level 211 Hemoglobin A1c 5.3 Calcium Level 10.9 H Total Bilirubin 1.7 H Direct Bilirubin 0.00 Indirect Bilirubin 1.7 H Aspartate Amino 46 Transf (AST/SGOT) Alanine 24 Aminotransferase (ALT/SG PT) Alkaline Phosphatase 110 Total Protein 7.2 Albumin 3.7 Globulin 3.50 H Albumin/Globulin Ratio 1.05 Salicylates Level < 1.0 L Acetaminophen Level < 10.0 L Ethyl Alcohol Level < 10.0 H POC Venous Lactate 3.1 *H Lactic Acid Level 3.7 *H Ammonia 147 H Test 01/25/19 05:52 01/25/19 08:42 White Blood Count 5.0 Red Blood Count 2.82 L Hemoglobin 8.8 L Hematocrit 26.2 L Mean Corpuscular Volume 92.9 Mean Corpuscular 31.2 Hemoglobin Mean Corpuscular 33.6 Hemoglobin Concent Red Cell Distribution 15.6 H Width Platelet Count 68 L Mean Platelet Volume 10.5 H Immature Granulocytes % 0.400 Neutrophils % 74.7 Lymphocytes % 17.1 Monocytes % 7.0 Eosinophils % 0.4 Basophils % 0.4 Nucleated Red Blood 0.0 Cells % Immature Granulocytes # 0.020 Neutrophils # 3.8 Lymphocytes # 0.9 Monocytes # 0.4 Eosinophils # 0.0 Basophils # 0.0 Nucleated Red Blood 0.0 Cells # Sodium Level 145 H Potassium Level 3.8 Chloride Level 117 H Carbon Dioxide Level 16 L Anion Gap 12 Blood Urea Nitrogen 18 Creatinine 0.75 Est Glomerular Filtrat > 60 Rate mL/min Glucose Level 189 Calcium Level 10.6 H Magnesium Level 1.7 Total Bilirubin 1.3 Direct Bilirubin 0.00 Indirect Bilirubin 1.3 H Aspartate Amino 50 H Transf (AST/SGOT) Alanine 23 Aminotransferase (ALT/SG PT) Alkaline Phosphatase 99 Total Protein 7.0 Albumin 3.7 Globulin 3.30 H Albumin/Globulin Ratio 1.12 Bedside Glucose 233 H Medications Medication Current Medications Ferrous Sulfate (Ferrous Sulfate (Ec)) 325 mg DAILY PO Last administered on 01/25/19 08:52; Admin Dose 325 MG; Start 01/25/19 at 09:00 Furosemide (Lasix) 20 mg DAILY PO Last administered on 01/25/19 08:52; Admin Dose 20 MG; Start 01/25/19 at 09:00 Insulin Aspart (Novolog Insulin Pen) 12 unit WITH MEALS SC Last administered on 01/25/19 08:44; Admin Dose 12 UNIT; Start 01/25/19 at 07:35 Insulin Glargine (Lantus) 60 units DAILY@0800 SC Last administered on 01/25/19 08:45; Admin Dose 60 UNITS; Start 01/25/19 at 08:00 Meclizine HCl (Antivert) 25 mg DAILY PRN PO DIZZINESS; Start 01/24/19 at 19:00 Pantoprazole (Protonix Tab) 40 mg AC BREAKFAST PO Last administered on 01/25/19 08:56; Admin Dose 40 MG; Start 01/25/19 at 07:30 Rifaximin (Xifaxan) 550 mg DAILY PO Last administered on 01/25/19 08:52; Admin Dose 550 MG; Start 01/25/19 at 09:00 Spironolactone (Aldactone) 50 mg DAILY PO Last administered on 01/25/19 08:51; Admin Dose 50 MG; Start 01/25/19 at 09:00 Lactulose (Enulose) 20 gm Q8 PO Last administered on 01/25/19 06:06; Admin Dose 20 GM; Start 01/24/19 at 22:00 Acetazolamide (Diamox Sequels) 500 mg BID PO Last administered on 01/24/19 22:02; Admin Dose 500 MG; Start 01/24/19 at 21:00 Dextrose 1,000 ml @ 60 mls/hr [id number] IV ; Start 01/25/19 at 09:30; Status UNCHAVO WHITLEY MD Jan 25, 2019 09:13
[2019-01-25] MEDS: DEXTROSE 5% 1,000 ML IV SCH ×2 (09:30→14:27)
[2019-01-25] MEDS: ACETAZOLAMIDE (SR) 500 MG CAP PO SCH (10:47)
[2019-01-25 14:53] VITALS: BP 135/62; PULSE 99; RESP 19
[2019-01-25] MEDS: BESIFLOXACIN 0.6% RIGHT EYE SCH ×2 (16:06→20:47)
[2019-01-25] MEDS: DUREZOL 0.05% EYE DROPS RIGHT EYE SCH ×2 (16:06→20:45)
[2019-01-25 20:00] VITALS: BP 142/62; PULSE 86; RESP 18
[2019-01-26] MEDS: LACTULOSE 30ML CUP PO SCH ×5 (00:49→17:42)
[2019-01-26] MEDS: DUREZOL 0.05% EYE DROPS RIGHT EYE SCH ×6 (01:02→21:07)
[2019-01-26 02:00] VITALS: BP 106/53; PULSE 77; RESP 17
[2019-01-26] MEDS: DEXTROSE 5% 1,000 ML IV SCH ×2 (02:10→06:44)
[2019-01-26] MEDS: PANTOPRAZOLE (EC) 40 MG TAB PO SCH (07:30)
[2019-01-26] MEDS: INSULIN ASPART [NOVOLOG] 3 ML PEN SC SCH ×3 (07:35→17:50)
[2019-01-26] MEDS: INSULIN GLARGINE [LANTus] (100 UNITS/ML) SYG SC SCH (08:00)
[2019-01-26 08:16] VITALS: BP 117/55; PULSE 79; RESP 17
[2019-01-26] MEDS: FERROUS SULFATE (EC) 325 MG TAB PO SCH (09:00)
[2019-01-26] MEDS: RIFAXIMIN 550 MG TAB PO SCH (09:00)
[2019-01-26] MEDS: FUROSEMIDE 20 MG TAB PO SCH (09:00)
[2019-01-26] MEDS: NEPAFENAC 0.3% RIGHT EYE SCH (09:00)
[2019-01-26] MEDS: BESIFLOXACIN 0.6% RIGHT EYE SCH ×4 (09:00→21:06)
[2019-01-26] MEDS: SPIRONOLACTONE 50 MG TAB PO SCH (09:00)
--- NOTE | 2019-01-26 09:12 | PN ---
Date/Time of Note Date/Time of Note DATE: 01/26/19 TIME: 09:12 Assessment/Plan VTE Prophylaxis Risk score (from Ns)>0 risk: 3 SCD applied (from Ns): Yes Pharmacological prophylaxis: NA/contraindicated Pharm contraindication: liver dx Lines/Catheters IV Catheter Type (from [facility]): Peripheral IV Urinary Cath still in place: Yes Reason Cath still needed: urinary retention Assessment/Plan Assessment/Plan 1. Acute hepatic encephalopathy - Patient still with confusion and continue on Lactulose and Rifaximin. Finally with BMs last night and will monitor frequency. Ammonia level trending downward - CT head performed with no acute abnormalities 2. Urinary retention - possible UTI seen on UA. Awaiting urine cultures - may be contributing to AMS - harmon in place 3. DM - A1c noted. No need for ISS at this time - holding Metformin and Insulin since patient has poor PO intake. May not need to be on such high doses of Lantus given A1c is 5.3 4. Hypercalcemia - possibly due to dehydration. continue gentle fluids 5. Hyperammonemia- improving - 102 today - continue on lactulose and rifaximin. Increasing lactulose until passing BM and then will titrate for 3-4 BM a day 6. h/o Glaucoma - continue home eye drops - hold off on Diamox for now given patients confusion started after medication. 7. Disposition - Will adjust Lactulose dose for 3-4 BMs daily and monitor for improvement in mentation Result Diagram: 01/26/19 0541 01/26/19 0541 Results 24hrs Laboratory Tests Test 01/25/19 10:12 01/25/19 12:00 01/25/19 13:41 01/25/19 18:03 Ammonia 111 H Bedside Glucose 134 160 Lactic Acid Level 2.3 *H Test 01/26/19 05:00 01/26/19 05:41 01/26/19 08:14 Urine Color TIMOTHY Urine Clarity SLIGHTLY CLOUDY A Urine pH 7.0 Urine Specific 1.014 Harrell Urine Ketones NEGATIVE Urine Nitrite NEGATIVE Urine Bilirubin NEGATIVE Urine Urobilinogen 2+ H Urine Leukocyte TRACE A Esterase Urine Microscopic > 182 H RBC Urine Microscopic 54 H WBC Urine Hemoglobin 3+ H Urine Glucose NEGATIVE Urine Total 1+ H Protein Urine Opiates Negative Screen Urine Barbiturates Negative Urine Amphetamines Negative Screen Urine Negative Benzodiazepines Screen Urine Cocaine Negative Screen Urine Cannabinoids Negative White Blood Count 4.8 Red Blood Count 2.60 L Hemoglobin 8.1 L Hematocrit 23.5 L Mean Corpuscular 90.4 Volume Mean Corpuscular 31.2 Hemoglobin Mean Corpuscular 34.5 Hemoglobin Concent Red Cell 15.4 H Distribution Width Platelet Count 60 L Mean Platelet 10.5 H Volume Immature 0.400 Granulocytes % Neutrophils % 62.9 Lymphocytes % 25.9 Monocytes % 8.1 Eosinophils % 2.3 Basophils % 0.4 Nucleated Red 0.0 Blood Cells % Immature 0.020 Granulocytes # Neutrophils # 3.0 Lymphocytes # 1.3 Monocytes # 0.4 Eosinophils # 0.1 Basophils # 0.0 Nucleated Red 0.0 Blood Cells # Sodium Level 144 Potassium Level 3.1 L Chloride Level 119 H Carbon Dioxide 16 L Level Anion Gap 9 Blood Urea 15 Nitrogen Creatinine 0.70 Est Glomerular > 60 Filtrat Rate mL/min Glucose Level 183 Lactic Acid Level 1.8 Calcium Level 10.7 H Magnesium Level 1.7 Total Bilirubin 1.5 H Direct Bilirubin 0.00 Indirect Bilirubin 1.5 H Aspartate Amino 45 Transf (AST/SGOT) Alanine 33 Aminotransferase ( ALT/SGPT) Alkaline 82 Phosphatase Total Protein 6.0 #L Albumin 3.1 L Globulin 2.90 Albumin/Globulin 1.06 Ratio Bedside Glucose 203 Subjective 24 Hr Interval Summary Free Text/Dictation Patient is resting comfortable. Was agitated since admission and has not been sleeping well. No acute distress. Poor PO intake at this time. Exam/Review of Systems Exam Vitals Vital Signs Date Temp Pulse Resp B/P (MAP) Pulse Ox O2 O2 Flow FiO2 Time Delivery Rate 01/26/19 97.8 79 17 117/55 97 Room Air 08:16 (75) Intake and Output 01/25/19 01/25/19 01/26/19 1515:00 23:00 07:00 IntakeIntake Total 180 ml 340 ml 760 ml OutputOutput Total 1500 ml 400 ml 400 ml BalanceBalance -1320 ml -60 ml 360 ml Exam General: Patient is laying in bed, sleeping Eyes: EOMI, right eye with cover due to recent cataract surgery Neck: Supple, nontender, midline Respiratory: Diminished at bases, tachypnea, no wheezing appreciated Cardiovascular: S1, S2, regular rate and rhythm, no obvious murmurs Gastrointestinal: soft, non-tender to palpation, nondistended, bowel sounds heard. no rebound or guarding Ext: Moves all extremities spontaneously. no cyanosis, edema, or clubbing Skin: No new skin lesions. Results Results 24hrs Laboratory Tests Test 01/25/19 10:12 01/25/19 12:00 01/25/19 13:41 01/25/19 18:03 Ammonia 111 H Bedside Glucose 134 160 Lactic Acid Level 2.3 *H Test 01/26/19 05:00 01/26/19 05:41 01/26/19 08:14 Urine Color TIMOTHY Urine Clarity SLIGHTLY CLOUDY A Urine pH 7.0 Urine Specific 1.014 Harrell Urine Ketones NEGATIVE Urine Nitrite NEGATIVE Urine Bilirubin NEGATIVE Urine Urobilinogen 2+ H Urine Leukocyte TRACE A Esterase Urine Microscopic > 182 H RBC Urine Microscopic 54 H WBC Urine Hemoglobin 3+ H Urine Glucose NEGATIVE Urine Total 1+ H Protein Urine Opiates Negative Screen Urine Barbiturates Negative Urine Amphetamines Negative Screen Urine Negative Benzodiazepines Screen Urine Cocaine Negative Screen Urine Cannabinoids Negative White Blood Count 4.8 Red Blood Count 2.60 L Hemoglobin 8.1 L Hematocrit 23.5 L Mean Corpuscular 90.4 Volume Mean Corpuscular 31.2 Hemoglobin Mean Corpuscular 34.5 Hemoglobin Concent Red Cell 15.4 H Distribution Width Platelet Count 60 L Mean Platelet 10.5 H Volume Immature 0.400 Granulocytes % Neutrophils % 62.9 Lymphocytes % 25.9 Monocytes % 8.1 Eosinophils % 2.3 Basophils % 0.4 Nucleated Red 0.0 Blood Cells % Immature 0.020 Granulocytes # Neutrophils # 3.0 Lymphocytes # 1.3 Monocytes # 0.4 Eosinophils # 0.1 Basophils # 0.0 Nucleated Red 0.0 Blood Cells # Sodium Level 144 Potassium Level 3.1 L Chloride Level 119 H Carbon Dioxide 16 L Level Anion Gap 9 Blood Urea 15 Nitrogen Creatinine 0.70 Est Glomerular > 60 Filtrat Rate mL/min Glucose Level 183 Lactic Acid Level 1.8 Calcium Level 10.7 H Magnesium Level 1.7 Total Bilirubin 1.5 H Direct Bilirubin 0.00 Indirect Bilirubin 1.5 H Aspartate Amino 45 Transf (AST/SGOT) Alanine 33 Aminotransferase ( ALT/SGPT) Alkaline 82 Phosphatase Total Protein 6.0 #L Albumin 3.1 L Globulin 2.90 Albumin/Globulin 1.06 Ratio Bedside Glucose 203 Medications Medication Current Medications Ferrous Sulfate (Ferrous Sulfate (Ec)) 325 mg DAILY PO Last administered on 01/25/19 08:52; Admin Dose 325 MG; Start 01/25/19 at 09:00 Furosemide (Lasix) 20 mg DAILY PO Last administered on 01/25/19 08:52; Admin Dose 20 MG; Start 01/25/19 at 09:00 Insulin Aspart (Novolog Insulin Pen) 12 unit WITH MEALS SC Last administered on 01/25/19 08:44; Admin Dose 12 UNIT; Start 01/25/19 at 07:35 Insulin Glargine (Lantus) 60 units DAILY@0800 SC Last administered on 01/25/19 08:45; Admin Dose 60 UNITS; Start 01/25/19 at 08:00 Meclizine HCl (Antivert) 25 mg DAILY PRN PO DIZZINESS; Start 01/24/19 at 19:00 Pantoprazole (Protonix Tab) 40 mg AC BREAKFAST PO Last administered on 01/25/19 08:56; Admin Dose 40 MG; Start 01/25/19 at 07:30 Rifaximin (Xifaxan) 550 mg DAILY PO Last administered on 01/25/19 08:52; Admin Dose 550 MG; Start 01/25/19 at 09:00 Spironolactone (Aldactone) 50 mg DAILY PO Last administered on 01/25/19 08:51; Admin Dose 50 MG; Start 01/25/19 at 09:00 Acetazolamide (Diamox Sequels) 500 mg BID PO Last administered on 01/25/19 10:47; Admin Dose 500 MG; Start 01/24/19 at 21:00; Status Hold Dextrose 1,000 ml @ 60 mls/hr [id number] IV Last administered on 01/26/19 06:44; Admin Dose 60 MLS/HR; Start 01/25/19 at 09:30 Patient Own Medication 1 ea QID RIGHT EYE Last administered on 01/25/19 20:47; Admin Dose 1 EA; Start 01/25/19 at 17:00 Patient Own Medication 1 ea DAILY RIGHT EYE ; Start 01/26/19 at 09:00 Patient Own Medication 1 ea Q4 RIGHT EYE Last administered on 01/26/19 05:48; Admin Dose 1 EA; Start 01/25/19 at 17:00 Lactulose (Enulose) 20 gm Q6 PO Last administered on 4/7/19at 06:43; Admin Dose 20 GM; Start 01/25/19 at 18:00 CHAVO TAFOYA MD Jan 26, 2019 09:12
[2019-01-26] MEDS ORDERED: GLUCAGON 1 MG INJ IM PRN (09:30)
[2019-01-26] MEDS ORDERED: DEXTROSE 50% 50 ML SYRINGE IV PRN ×2 (09:30)
[2019-01-26] MEDS ORDERED: GLUCOSE GEL 15 GRAM TUBE BUCCAL PRN (09:30)
[2019-01-26] MEDS ORDERED: GLUCOSE GEL 15 GRAM TUBE PO PRN ×2 (09:30)
[2019-01-26] MEDS ORDERED: MAGNESIUM SULFATE 2 GM/50 ML 50 ML IVPB ONE (10:00)
[2019-01-26] MEDS: D5W-0.45 NACL + KCL 20 MEQ 1,000 ML IV SCH (11:45)
[2019-01-26] MEDS: POTASSIUM CHLORIDE 100 ML IVPB SCH ×2 (14:53→17:16)
[2019-01-26 14:54] VITALS: BP 136/59; PULSE 79; RESP 18
[2019-01-26] MEDS ORDERED: CEFTRIAXONE 1 GM/50 ML (PMX) 50 ML IVPB SCH (15:30)
[2019-01-26 20:22] VITALS: BP 120/56; PULSE 88; RESP 18
[2019-01-26] MEDS: CEFTRIAXONE 1 GM/50 ML (PMX) 50 ML IVPB SCH (21:17)
[2019-01-27] MEDS: LACTULOSE 30ML CUP PO SCH ×4 (00:30→18:13)
[2019-01-27] MEDS: DUREZOL 0.05% EYE DROPS RIGHT EYE SCH ×6 (01:00→21:03)
[2019-01-27] MEDS: D5W-0.45 NACL + KCL 20 MEQ 1,000 ML IV SCH ×2 (02:10→12:18)
[2019-01-27 02:20] VITALS: BP 132/63; PULSE 83; RESP 18
[2019-01-27 08:50] VITALS: BP 136/60; PULSE 86; RESP 18
[2019-01-27] MEDS: FERROUS SULFATE (EC) 325 MG TAB PO SCH (09:11)
[2019-01-27] MEDS: SPIRONOLACTONE 50 MG TAB PO SCH (09:11)
[2019-01-27] MEDS: RIFAXIMIN 550 MG TAB PO SCH (09:11)
[2019-01-27] MEDS: FUROSEMIDE 20 MG TAB PO SCH (09:12)
[2019-01-27] MEDS: BESIFLOXACIN 0.6% RIGHT EYE SCH ×4 (09:12→21:02)
[2019-01-27] MEDS: NEPAFENAC 0.3% RIGHT EYE SCH (09:13)
[2019-01-27] MEDS: INSULIN ASPART [NOVOLOG] 3 ML PEN SC SCH ×3 (09:16→18:11)
[2019-01-27] MEDS: PANTOPRAZOLE (EC) 40 MG TAB PO SCH (09:21)
[2019-01-27] MEDS: INSULIN GLARGINE [LANTus] (100 UNITS/ML) SYG SC SCH (09:24)
[2019-01-27 14:16] VITALS: BP 95/42; PULSE 60; RESP 18
--- NOTE | 2019-01-27 19:07 | PN ---
Date/Time of Note Date/Time of Note DATE: 01/27/19 TIME: 19:07 Objective Vitals Vital Signs Date Temp Pulse Resp B/P (MAP) Pulse Ox O2 O2 Flow FiO2 Time Delivery Rate 01/27/19 98.3 60 18 95/42 (59) 99 Room Air 14:16 Intake and Output 01/26/19 01/26/19 01/27/19 1515:00 23:00 07:00 IntakeIntake Total 290 ml 430 ml 125 ml OutputOutput Total 400 ml BalanceBalance 290 ml 30 ml 125 ml Results Result Diagram: 01/27/1942 01[birth year]27/1942 Medications Medications Current Medications Ferrous Sulfate (Ferrous Sulfate (Ec)) 325 mg DAILY PO Last administered on 01/27/19 09:11; Admin Dose 325 MG; Start 01/25/19 at 09:00 Furosemide (Lasix) 20 mg DAILY PO Last administered on 01/27/19 09:12; Admin Dose 20 MG; Start 01/25/19 at 09:00 Insulin Aspart (Novolog Insulin Pen) 12 unit WITH MEALS SC Last administered on 01/27/19 18:11; Admin Dose 12 UNIT; Start 01/25/19 at 07:35 Insulin Glargine (Lantus) 60 units DAILY@0800 SC Last administered on 01/27/19 09:24; Admin Dose 60 UNITS; Start 01/25/19 at 08:00 Meclizine HCl (Antivert) 25 mg DAILY PRN PO DIZZINESS; Start 01/24/19 at 19:00 Pantoprazole (Protonix Tab) 40 mg AC BREAKFAST PO Last administered on 01/27/19 09:21; Admin Dose 40 MG; Start 01/25/19 at 07:30 Rifaximin (Xifaxan) 550 mg DAILY PO Last administered on 01/27/19 09:11; Admin Dose 550 MG; Start 01/25/19 at 09:00 Spironolactone (Aldactone) 50 mg DAILY PO Last administered on 01/27/19 09:11; Admin Dose 50 MG; Start 01/25/19 at 09:00 Acetazolamide (Diamox Sequels) 500 mg BID PO Last administered on 01/25/19at 10:47; Admin Dose 500 MG; Start 01/24/19 at 21:00; Status Hold Patient Own Medication 1 ea QID RIGHT EYE Last administered on 01/27/19 17:31; Admin Dose 1 EA; Start 01/25/19 at 17:00 Patient Own Medication 1 ea DAILY RIGHT EYE Last administered on 01/27/19 09:13; Admin Dose 1 EA; Start 01/26/19 at 09:00 Patient Own Medication 1 ea Q4 RIGHT EYE Last administered on 01/27/19 17:31; Admin Dose 1 EA; Start 01/25/19 at 17:00 Lactulose (Enulose) 20 gm Q6 PO Last administered on 01/27/19 18:13; Admin Dose 20 GM; Start 01/25/19 at 18:00 Miscellaneous Information 1 ea NOTE XX ; Start 01/26/19 at 09:30 Glucose (Glutose) 15 gm Q15M PRN PO DECREASED GLUCOSE; Start 01/26/19 at 09:30 Glucose (Glutose) 22.5 gm Q15M PRN PO DECREASED GLUCOSE; Start 01/26/19 at 09:30 Dextrose (D50w Syringe) 25 ml Q15M PRN IV DECREASED GLUCOSE; Start 01/26/19 at 09:30 Dextrose (D50w Syringe) 50 ml Q15M PRN IV DECREASED GLUCOSE; Start 01/26/19 at 09:30 Glucagon (Glucagen) 1 mg Q15M PRN IM DECREASED GLUCOSE; Start 01/26/19 at 09:30 Glucose (Glutose) 15 gm Q15M PRN BUCCAL DECREASED GLUCOSE; Start 01/26/19 at 09:30 Ceftriaxone Sodium 50 ml @ 100 mls/hr Q24H IVPB Last administered on 01/26/19at 21:17; Admin Dose 100 MLS/HR; Start 01/26/19 at 21:00 VTE Prophylaxis Risk score (from Nsg)>0 risk: 4 SCD applied (from Nsg): Yes Lines/Catheters IV Catheter Type: Harmon in Place: No Assessment/Plan Hospital Course Subjective Per nursing staff patient's mentation is greatly improved since yesterday, patient able to respond to questions although there is a slight language barrier. Objective Physical exam General: Patient is laying in bed and answers questions appropriately Mentation: Patient is alert and oriented to self and place and mildly to situation Head: Normocephalic atraumatic Eyes: EOMI, pupils reactive to light Neck: Supple, nontender, midline Respiratory: Clear to auscultation bilaterally Cardiovascular: regular rate, no obvious murmurs Gastrointestinal: non-tender to palpation, bowel sounds heard. Neurological: Moves all extremities spontaneously Skin: No new skin lesions Assessment/Plan 1. Acute hepatic encephalopathy - Patient mentation has significantly improved - CT head performed with no acute abnormalities -Possibly in combination of elevated ammonia along with UTI. 2. Urinary retention - possible UTI seen on UA, low leuk but high wbc. Awaiting urine cultures - may be contributing to AMS - harmon in place -IV abx 3. DM - A1c noted. No need for ISS at this time - holding Metformin and Insulin since patient has poor PO intake. May not need to be on such high doses of Lantus given A1c is 5.3, however will monitor 4. Hypercalcemia - possibly due to dehydration. IVF given 5. Hyperammonemia- improving - 102 earlier - continue on lactulose and rifaximin. Increasing lactulose until passing BM and then will titrate for 3-4 BM a day 6. h/o Glaucoma - continue home eye drops - hold off on Diamox for now given patients confusion started after medication. 7. Disposition - Will adjust Lactulose dose for 3-4 BMs daily and monitor for improvement in mentation NILTON CHAMBERS Jan 27, 2019 19:07
[2019-01-27 20:09] VITALS: BP 117/53; PULSE 92; RESP 20
[2019-01-27] MEDS: CEFTRIAXONE 1 GM/50 ML (PMX) 50 ML IVPB SCH (21:02)
[2019-01-28] MEDS: LACTULOSE 30ML CUP PO SCH ×4 (00:34→17:28)
[2019-01-28] MEDS: DUREZOL 0.05% EYE DROPS RIGHT EYE SCH ×6 (00:36→21:05)
[2019-01-28 02:33] VITALS: BP 139/65; PULSE 94; RESP 18
[2019-01-28 08:00] VITALS: BP_SYST 115; BP_SYST 116; BP_DIAS 70; BP_DIAS 79; PULSE 79; PULSE 89; RESP 18; RESP 20
[2019-01-28] MEDS: D5W-0.45 NACL + KCL 20 MEQ 1,000 ML IV SCH (08:28)
[2019-01-28] MEDS: POTASSIUM CHLORIDE 20 MEQ POWDER FOR ORAL SOLN PO SCH ×2 (08:29→11:24)
[2019-01-28] MEDS: BESIFLOXACIN 0.6% RIGHT EYE SCH ×4 (08:29→21:05)
[2019-01-28] MEDS: SPIRONOLACTONE 50 MG TAB PO SCH (08:29)
[2019-01-28] MEDS: RIFAXIMIN 550 MG TAB PO SCH (08:29)
[2019-01-28] MEDS: FERROUS SULFATE (EC) 325 MG TAB PO SCH (08:29)
[2019-01-28] MEDS: PANTOPRAZOLE (EC) 40 MG TAB PO SCH (08:29)
[2019-01-28] MEDS: NEPAFENAC 0.3% RIGHT EYE SCH (08:30)
[2019-01-28] MEDS: INSULIN GLARGINE [LANTus] (100 UNITS/ML) SYG SC SCH (08:46)
[2019-01-28] MEDS: INSULIN ASPART [NOVOLOG] 3 ML PEN SC SCH ×5 (08:47→21:00)
[2019-01-28] MEDS: FUROSEMIDE 20 MG TAB PO SCH (08:48)
[2019-01-28 14:00] VITALS: BP 120/76; PULSE 76; RESP 18
--- NOTE | 2019-01-28 16:17 | PN ---
Date/Time of Note Date/Time of Note DATE: 01/28/19 TIME: 16:17 Objective Vitals Vital Signs Date Temp Pulse Resp B/P (MAP) Pulse Ox O2 O2 Flow FiO2 Time Delivery Rate 01/28/19 97.6 76 18 120/76 94 14:00 (91) 01/27/19 Room Air 14:16 Intake and Output 01/27/19 01/27/19 01/28/19 1515:00 23:00 07:00 IntakeIntake Total 120 ml 470 ml 330 ml BalanceBalance 120 ml 470 ml 330 ml Results Result Diagram: 01/28/1953001/28/19530 Medications Medications Current Medications Ferrous Sulfate (Ferrous Sulfate (Ec)) 325 mg DAILY PO Last administered on 01/28/19 08:29; Admin Dose 325 MG; Start 01/25/19 at 09:00 Furosemide (Lasix) 20 mg DAILY PO Last administered on 01/28/19 08:48; Admin Dose 20 MG; Start 01/25/19 at 09:00 Insulin Aspart (Novolog Insulin Pen) 12 unit WITH MEALS SC Last administered on 01/28/19 12:26; Admin Dose 12 UNIT; Start 01/25/19 at 07:35 Insulin Glargine (Lantus) 60 units DAILY@0800 SC Last administered on 01/28/19 08:46; Admin Dose 60 UNITS; Start 01/25/19 at 08:00 Meclizine HCl (Antivert) 25 mg DAILY PRN PO DIZZINESS; Start 01/24/19 at 19:00 Pantoprazole (Protonix Tab) 40 mg AC BREAKFAST PO Last administered on 01/28/19at 08:29; Admin Dose 40 MG; Start 01/25/19 at 07:30 Rifaximin (Xifaxan) 550 mg DAILY PO Last administered on 01/28/19 08:29; Admin Dose 550 MG; Start 01/25/19 at 09:00 Spironolactone (Aldactone) 50 mg DAILY PO Last administered on 01/28/19 08:29; Admin Dose 50 MG; Start 01/25/19 at 09:00 Acetazolamide (Diamox Sequels) 500 mg BID PO Last administered on 01/25/19at 10:47; Admin Dose 500 MG; Start 01/24/19 at 21:00; Status Hold Patient Own Medication 1 ea QID RIGHT EYE Last administered on 01/28/19at 12:24; Admin Dose 1 EA; Start 01/25/19 at 17:00 Patient Own Medication 1 ea DAILY RIGHT EYE Last administered on 01/28/19 08:30; Admin Dose 1 EA; Start 01/26/19 at 09:00 Patient Own Medication 1 ea Q4 RIGHT EYE Last administered on 01/28/19 12:24; Admin Dose 1 EA; Start 01/25/19 at 17:00 Lactulose (Enulose) 20 gm Q6 PO Last administered on 01/28/19 12:24; Admin Dose 20 GM; Start 01/25/19 at 18:00 Miscellaneous Information 1 ea NOTE XX ; Start 01/26/19 at 09:30 Glucose (Glutose) 15 gm Q15M PRN PO DECREASED GLUCOSE; Start 01/26/19 at 09:30 Glucose (Glutose) 22.5 gm Q15M PRN PO DECREASED GLUCOSE; Start 01/26/19 at 09:30 Dextrose (D50w Syringe) 25 ml Q15M PRN IV DECREASED GLUCOSE; Start 01/26/19 at 09:30 Dextrose (D50w Syringe) 50 ml Q15M PRN IV DECREASED GLUCOSE; Start 01/26/19 at 09:30 Glucagon (Glucagen) 1 mg Q15M PRN IM DECREASED GLUCOSE; Start 01/26/19 at 09:30 Glucose (Glutose) 15 gm Q15M PRN BUCCAL DECREASED GLUCOSE; Start 01/26/19 at 09:30 Ceftriaxone Sodium 50 ml @ 100 mls/hr Q24H IVPB Last administered on 01/27/19at 21:02; Admin Dose 100 MLS/HR; Start 01/26/19 at 21:00 Potassium Chloride/Dextrose/ Sod Cl 1,000 ml @ 50 mls/hr Q20H IV Last administered on 01/28/19 08:28; Admin Dose 50 MLS/HR; Start 01/28/19 at 08:00 Insulin Aspart (Novolog Insulin Pen) NOVOLOG *MILD* ALGORITHM WITH MEALS BEDTIME SC ; Start 01/28/19 at 18:05 VTE Prophylaxis Risk score (from Nsg)>0 risk: 3 SCD applied (from Ns): Yes Lines/Catheters IV Catheter Type: Harmon in Place: No Assessment/Plan Hospital Course Subjective patient continues to improve, following all command and able to have conversations. Objective Physical exam General: Patient is laying in bed and answers questions appropriately Mentation: Patient is alert and oriented to self and place and mildly to situation Head: Normocephalic atraumatic Eyes: EOMI, pupils reactive to light Neck: Supple, nontender, midline Respiratory: Clear to auscultation bilaterally Cardiovascular: regular rate, no obvious murmurs Gastrointestinal: non-tender to palpation, bowel sounds heard. Neurological: Moves all extremities spontaneously Skin: No new skin lesions Assessment/Plan 1. Acute hepatic encephalopathy - Patient mentation has significantly improved - CT head performed with no acute abnormalities -Possibly in combination of elevated ammonia along with UTI. 2. Urinary retention - possible UTI seen on UA, low leuk but high wbc. Awaiting urine cultures - may be contributing to AMS - harmon in place -IV abx 3. DM - A1c noted. No need for ISS at this time - holding Metformin and Insulin since patient has poor PO intake. May not need to be on such high doses of Lantus given A1c is 5.3, however will monitor 4. Hypercalcemia - possibly due to dehydration. IVF given 5. Hyperammonemia- improving - 102 earlier this week - continue on lactulose and rifaximin. Increasing lactulose until passing BM and then will titrate for 3-4 BM a day 6. h/o Glaucoma - continue home eye drops - hold off on Diamox for now given patients confusion started after medication. 7. Disposition - Will adjust Lactulose dose for 3-4 BMs daily and monitor for improvement in mentation -We will likely need some form of [facility] facility versus home health PT, continued monitoring for mentation improvement NILTON CHAMBERS Jan 28, 2019 16:17
[2019-01-28 20:00] VITALS: BP 134/58; PULSE 98; RESP 18
[2019-01-28] MEDS: CEFTRIAXONE 1 GM/50 ML (PMX) 50 ML IVPB SCH (21:05)
[2019-01-28 22:30] VITALS: BP 134/63; PULSE 95; RESP 18
[2019-01-29] MEDS: LACTULOSE 30ML CUP PO SCH ×5 (01:24→23:35)
[2019-01-29] MEDS: DUREZOL 0.05% EYE DROPS RIGHT EYE SCH ×6 (01:25→20:41)
[2019-01-29 02:22] VITALS: BP 147/66; PULSE 89; RESP 18
[2019-01-29] MEDS: D5W-0.45 NACL + KCL 20 MEQ 1,000 ML IV SCH (05:42)
[2019-01-29] MEDS: PANTOPRAZOLE (EC) 40 MG TAB PO SCH (05:43)
[2019-01-29 07:59] VITALS: BP 165/72; PULSE 86; RESP 17
[2019-01-29] MEDS: INSULIN ASPART [NOVOLOG] 3 ML PEN SC SCH ×7 (08:19→20:40)
[2019-01-29] MEDS: INSULIN GLARGINE [LANTus] (100 UNITS/ML) SYG SC SCH (08:19)
[2019-01-29] MEDS: FERROUS SULFATE (EC) 325 MG TAB PO SCH (08:22)
[2019-01-29] MEDS: BESIFLOXACIN 0.6% RIGHT EYE SCH ×4 (08:22→20:41)
[2019-01-29] MEDS: SPIRONOLACTONE 50 MG TAB PO SCH (08:22)
[2019-01-29] MEDS: NEPAFENAC 0.3% RIGHT EYE SCH (08:22)
[2019-01-29] MEDS: FUROSEMIDE 20 MG TAB PO SCH (08:23)
[2019-01-29] MEDS: RIFAXIMIN 550 MG TAB PO SCH (09:21)
[2019-01-29] MEDS: AMLODIPINE 5 MG TAB PO SCH (12:44)
[2019-01-29] MEDS: POTASSIUM CHLORIDE (SR) 20 MEQ TAB PO SCH ×2 (12:44→16:42)
[2019-01-29 14:15] VITALS: BP 144/64; PULSE 91; RESP 17
--- NOTE | 2019-01-29 15:07 | PN ---
Date/Time of Note Date/Time of Note DATE: 01/29/19 TIME: 15:06 Objective Vitals Vital Signs Date Temp Pulse Resp B/P (MAP) Pulse Ox O2 O2 Flow FiO2 Time Delivery Rate 01/29/19 97.9 91 17 144/64 100 14:15 (90) 01/27/19 Room Air 14:16 Intake and Output 01/28/19 01/28/19 01/29/19 1515:00 23:00 07:00 IntakeIntake Total 350 ml 800 ml 550 ml OutputOutput Total 400 ml BalanceBalance -50 ml 800 ml 550 ml Results Result Diagram: 01/29/195 01/29/195 Medications Medications Current Medications Ferrous Sulfate (Ferrous Sulfate (Ec)) 325 mg DAILY PO Last administered on 01/29/19 08:22; Admin Dose 325 MG; Start 01/25/19 at 09:00 Furosemide (Lasix) 20 mg DAILY PO Last administered on 01/29/19 08:23; Admin Dose 20 MG; Start 01/25/19 at 09:00 Insulin Aspart (Novolog Insulin Pen) 12 unit WITH MEALS SC Last administered on 01/29/19at 12:50; Admin Dose 12 UNIT; Start 01/25/19 at 07:35 Insulin Glargine (Lantus) 60 units DAILY@0800 SC Last administered on 01/29/19 08:19; Admin Dose 60 UNITS; Start 01/25/19 at 08:00 Meclizine HCl (Antivert) 25 mg DAILY PRN PO DIZZINESS; Start 01/24/19 at 19:00 Pantoprazole (Protonix Tab) 40 mg AC BREAKFAST PO Last administered on 01/29/19at 05:43; Admin Dose 40 MG; Start 01/25/19 at 07:30 Rifaximin (Xifaxan) 550 mg DAILY PO Last administered on 01/29/19 09:21; Admin Dose 550 MG; Start 01/25/19 at 09:00 Spironolactone (Aldactone) 50 mg DAILY PO Last administered on 01/29/19 08:22; Admin Dose 50 MG; Start 01/25/19 at 09:00 Acetazolamide (Diamox Sequels) 500 mg BID PO Last administered on 01/25/19at 10:47; Admin Dose 500 MG; Start 01/24/19 at 21:00; Status Hold Patient Own Medication 1 ea QID RIGHT EYE Last administered on 01/29/19at 12:46; Admin Dose 1 EA; Start 01/25/19 at 17:00 Patient Own Medication 1 ea DAILY RIGHT EYE Last administered on 01/29/19at 08:22; Admin Dose 1 EA; Start 01/26/19 at 09:00 Patient Own Medication 1 ea Q4 RIGHT EYE Last administered on 01/29/19at 12:46; Admin Dose 1 EA; Start 01/25/19 at 17:00 Lactulose (Enulose) 20 gm Q6 PO Last administered on 01/29/19at 12:44; Admin Dose 20 GM; Start 01/25/19 at 18:00 Miscellaneous Information 1 ea NOTE XX ; Start 01/26/19 at 09:30 Glucose (Glutose) 15 gm Q15M PRN PO DECREASED GLUCOSE; Start 01/26/19 at 09:30 Glucose (Glutose) 22.5 gm Q15M PRN PO DECREASED GLUCOSE; Start 01/26/19 at 09:30 Dextrose (D50w Syringe) 25 ml Q15M PRN IV DECREASED GLUCOSE; Start 01/26/19 at 09:30 Dextrose (D50w Syringe) 50 ml Q15M PRN IV DECREASED GLUCOSE; Start 01/26/19 at 09:30 Glucagon (Glucagen) 1 mg Q15M PRN IM DECREASED GLUCOSE; Start 01/26/19 at 09:30 Glucose (Glutose) 15 gm Q15M PRN BUCCAL DECREASED GLUCOSE; Start 01/26/19 at 09:30 Ceftriaxone Sodium 50 ml @ 100 mls/hr Q24H IVPB Last administered on 01/28/19at 21:05; Admin Dose 100 MLS/HR; Start 01/26/19 at 21:00 Potassium Chloride/Dextrose/ Sod Cl 1,000 ml @ 50 mls/hr Q20H IV Last administered on 01/29/19at 05:42; Admin Dose 50 MLS/HR; Start 01/28/19 at 08:00 Insulin Aspart (Novolog Insulin Pen) NOVOLOG *MILD* ALGORITHM WITH MEALS BED TIME SC Last administered on 01/29/19at 12:51; Admin Dose 3 UNIT; Start 01/28/19 at 18:05 Potassium Chloride (Klor-Con 20) 40 meq Q4H PO Last administered on 01/29/19at 12:44; Admin Dose 40 MEQ; Start 01/29/19 at 12:00; Stop 01/29/19 at 16:01 Amlodipine Besylate (Norvasc) 5 mg DAILY PO Last administered on 01/29/19at 12:44; Admin Dose 5 MG; Start 01/29/19 at 12:00 VTE Prophylaxis Risk score (from Ns)>0 risk: 3 SCD applied (from Ns): Yes Lines/Catheters IV Catheter Type: Harmon in Place: No Assessment/Plan Hospital Course Subjective patient continues to improve, following all command and able to have conversations. Objective Physical exam General: Patient is laying in bed and answers questions appropriately Mentation: Patient is alert and oriented to self and place and mildly to situation Head: Normocephalic atraumatic Eyes: EOMI, pupils reactive to light Neck: Supple, nontender, midline Respiratory: Clear to auscultation bilaterally Cardiovascular: regular rate, no obvious murmurs Gastrointestinal: non-tender to palpation, bowel sounds heard. Neurological: Moves all extremities spontaneously Skin: No new skin lesions Assessment/Plan 1. Acute hepatic encephalopathy - Patient mentation has significantly improved - CT head performed with no acute abnormalities -Possibly in combination of elevated ammonia along with UTI. 2. Urinary retention/UTI - possible UTI seen on UA, low leuk but high wbc. urine cultures negative, patient received 3 doses of ceftriaxone, will monitor off abx. - may have contributed to AMS - harmon in place, will dc -IV abx will stop 3. DM - A1c noted. No need for ISS at this time - holding Metformin and Insulin since patient has poor PO intake. May not need to be on such high doses of Lantus given A1c is 5.3, however will monitor 4. Hypercalcemia - possibly due to dehydration. IVF given 5. Hyperammonemia- improving - 102 earlier this week - continue on lactulose and rifaximin. Increasing lactulose until passing BM and then will titrate for 3-4 BM a day 6. h/o Glaucoma - continue home eye drops - hold off on Diamox for now given patients confusion started after medication. 7. Disposition - Will adjust Lactulose dose for 3-4 BMs daily and monitor for improvement in mentation -BP elevated, if safe, plan for ARU tomorrow -We will likely need some form of halfway facility versus home health PT, continued monitoring for mentation improvement NILTON CHAMBERS Jan 29, 2019 15:07
[2019-01-29 20:01] VITALS: BP 132/63; PULSE 97; RESP 18
[2019-01-30] MEDS: DUREZOL 0.05% EYE DROPS RIGHT EYE SCH ×6 (00:06→21:08)
[2019-01-30 01:45] VITALS: BP 146/66; PULSE 92; RESP 18
[2019-01-30] MEDS: PANTOPRAZOLE (EC) 40 MG TAB PO SCH (05:35)
[2019-01-30] MEDS: LACTULOSE 30ML CUP PO SCH ×4 (05:37→17:24)
[2019-01-30 07:57] VITALS: BP 121/53; PULSE 85; RESP 17
[2019-01-30] MEDS: INSULIN ASPART [NOVOLOG] 3 ML PEN SC SCH ×5 (08:00→21:10)
[2019-01-30] MEDS: INSULIN GLARGINE [LANTus] (100 UNITS/ML) SYG SC SCH (08:10)
[2019-01-30] MEDS: BESIFLOXACIN 0.6% RIGHT EYE SCH ×4 (08:11→21:08)
[2019-01-30] MEDS: NEPAFENAC 0.3% RIGHT EYE SCH (08:11)
[2019-01-30] MEDS: FUROSEMIDE 20 MG TAB PO SCH (08:24)
[2019-01-30] MEDS: SPIRONOLACTONE 50 MG TAB PO SCH (08:24)
[2019-01-30] MEDS: AMLODIPINE 5 MG TAB PO SCH (08:24)
[2019-01-30] MEDS: FERROUS SULFATE (EC) 325 MG TAB PO SCH (08:24)
[2019-01-30] MEDS: RIFAXIMIN 550 MG TAB PO SCH (08:24)
[2019-01-30] MEDS ORDERED: POTASSIUM CHLORIDE 20 MEQ POWDER FOR ORAL SOLN PO ONE (12:30)
[2019-01-30] MEDS ORDERED: ALBUTEROL/IPRATROPIUM (NEB) 3 ML AMP HHN PRN (15:00)
[2019-01-30 15:43] VITALS: BP 137/67; PULSE 90; RESP 17
--- NOTE | 2019-01-30 17:01 | PN ---
Date/Time of Note Date/Time of Note DATE: 01/30/19 TIME: 16:55 Objective Vitals Vital Signs Date Temp Pulse Resp B/P (MAP) Pulse Ox O2 O2 Flow FiO2 Time Delivery Rate 01/30/19 98.0 90 17 137/67 100 15:43 (90) 01/27/19 Room Air 14:16 Intake and Output 01/29/19 01/29/19 01/30/19 1515:00 23:00 07:00 IntakeIntake Total 1118 ml 780 ml 660 ml OutputOutput Total 450 ml 400 ml BalanceBalance 668 ml 380 ml 660 ml Results Result Diagram: 01/30/19 1436 01/30/19 0500 Medications Medications Current Medications Ferrous Sulfate (Ferrous Sulfate (Ec)) 325 mg DAILY PO Last administered on 01/30/19 08:24; Admin Dose 325 MG; Start 01/25/19 at 09:00 Furosemide (Lasix) 20 mg DAILY PO Last administered on 01/30/19at 08:24; Admin Dose 20 MG; Start 01/25/19 at 09:00 Meclizine HCl (Antivert) 25 mg DAILY PRN PO DIZZINESS; Start 01/24/19 at 19:00 Pantoprazole (Protonix Tab) 40 mg AC BREAKFAST PO Last administered on 01/30/19at 05:35; Admin Dose 40 MG; Start 01/25/19 at 07:30 Rifaximin (Xifaxan) 550 mg DAILY PO Last administered on 01/30/19 08:24; Admin Dose 550 MG; Start 01/25/19 at 09:00 Spironolactone (Aldactone) 50 mg DAILY PO Last administered on 01/30/19 08:24; Admin Dose 50 MG; Start 01/25/19 at 09:00 Acetazolamide (Diamox Sequels) 500 mg BID PO Last administered on 01/25/19 10:47; Admin Dose 500 MG; Start 01/24/19 at 21:00; Status Hold Patient Own Medication 1 ea QID RIGHT EYE Last administered on 01/30/19 13:22; Admin Dose 1 EA; Start 01/25/19 at 17:00 Patient Own Medication 1 ea DAILY RIGHT EYE Last administered on 01/30/19 08:11; Admin Dose 1 EA; Start 01/26/19 at 09:00 Patient Own Medication 1 ea Q4 RIGHT EYE Last administered on 01/30/19at 13:22; Admin Dose 1 EA; Start 01/25/19 at 17:00 Lactulose (Enulose) 20 gm Q6 PO Last administered on 01/30/19at 05:37; Admin Dose 20 GM; Start 01/25/19 at 18:00 Miscellaneous Information 1 ea NOTE XX ; Start 01/26/19 at 09:30 Glucose (Glutose) 15 gm Q15M PRN PO DECREASED GLUCOSE; Start 01/26/19 at 09:30 Glucose (Glutose) 22.5 gm Q15M PRN PO DECREASED GLUCOSE; Start 01/26/19 at 09:30 Dextrose (D50w Syringe) 25 ml Q15M PRN IV DECREASED GLUCOSE; Start 01/26/19 at 09:30 Dextrose (D50w Syringe) 50 ml Q15M PRN IV DECREASED GLUCOSE; Start 01/26/19 at 09:30 Glucagon (Glucagen) 1 mg Q15M PRN IM DECREASED GLUCOSE; Start 01/26/19 at 09:30 Glucose (Glutose) 15 gm Q15M PRN BUCCAL DECREASED GLUCOSE; Start 01/26/19 at 09:30 Insulin Aspart (Novolog Insulin Pen) NOVOLOG *MILD* ALGORITHM WITH MEALS BEDTIME SC Last administered on 01/29/19at 20:40; Admin Dose 1 UNIT; Start 01/28/19 at 18:05 Amlodipine Besylate (Norvasc) 5 mg DAILY PO Last administered on 01/30/19at 08:24; Admin Dose 5 MG; Start 01/29/19 at 12:00 Metformin HCl (Glucophage) 1,000 mg BID WITH MEALS PO ; Start 01/30/19 at 18:00 Albuterol/ Ipratropium (Duoneb) 3 ml Q6HWA RESP THERAPY HHN ; Start 01/30/19 at 20:00 Albuterol/ Ipratropium (Duoneb) 3 ml Q2H RESP THERAPY PRN HHN shortness of breath; Start 01/30/19 at 15:00 VTE Prophylaxis Risk score (from Nsg)>0 risk: 6 SCD applied (from Nsg): Yes Lines/Catheters IV Catheter Type: Harmon in Place: No Assessment/Plan Hospital Course Subjective patient appears to have more bruising today than the previous, otherwise mentation is at baseline, has mild shortness of breath with ambulation Objective Physical exam General: Patient is laying in bed and answers questions appropriately Mentation: Patient is alert and oriented to self and place and mildly to situation Head: Normocephalic atraumatic Eyes: EOMI, pupils reactive to light Neck: Supple, nontender, midline Respiratory: Clear to auscultation bilaterally Cardiovascular: regular rate, no obvious murmurs Gastrointestinal: non-tender to palpation, bowel sounds heard. Neurological: Moves all extremities spontaneously Skin: No new skin lesions Assessment/Plan Acute hepatic encephalopathy-resolved - Patient mentation has returned to baseline - CT head performed with no acute abnormalities -Possibly in combination of elevated ammonia along with UTI. Generalized bruising -Likely secondary to trauma cytopenia which is secondary to cirrhosis -Coag screen done, INR is mildly elevated 1.42 -No signs of GI bleed however will monitor hemoglobin closely -We will monitor closely, it appears patient is having excessive bruising sites usually at sites of IV insertion however there are other sites that are unexplained,. Hypoxia -Mild hypoxia, with ambulation -Chest x-ray done, indicative of small airway disease, DuoNeb and budesonide for now Cirrhosis -VILLAFANA -Continue Lasix and spironolactone Urinary retention/UTI - possible UTI seen on UA, low leuk but high wbc. urine cultures negative, patient received 3 doses of ceftriaxone, will monitor off abx. - may have contributed to AMS - harmon in place, will dc -IV abx will stop DM - A1c noted. -Patient appears to have a very complex history regarding her diabetes. Patient has been fluctuating with her sugar levels with very high doses of Lantus and insulin however the patient's daughter states that once she is on metformin she will need virtually no insulin. On this new information, will attempt to restart metformin 1000 twice a day with insulin sliding scale as coverage taking off the other insulin, will need to re-add new insulin if needed to correct excessive sugars. Hypercalcemia, resolved - possibly due to dehydration. IVF given. monitor Hyperammonemia- improving - 102 earlier this week, now with a 30 - continue on lactulose and rifaximin. Increasing lactulose until passing BM and then will titrate for 3-4 BM a day h/o Glaucoma - continue home eye drops - hold off on Diamox for now given patients confusion started after medication. Disposition - Will adjust Lactulose dose for 3-4 BMs daily -Patient's hemoglobin and excessive bruising will be monitored closely, if stable will DC to ARU tomorrow. NILTON CHAMBERS Jan 30, 2019 17:01
[2019-01-30] MEDS: metFORMIN 500 MG TAB PO SCH (17:25)
[2019-01-30] MEDS ORDERED: INSULIN ASPART [NOVOLOG] 3 ML PEN SC SCH (18:00)
[2019-01-30] MEDS: ALBUTEROL/IPRATROPIUM (NEB) 3 ML AMP HHN SCH (19:28)
[2019-01-30] MEDS: BUDESONIDE (NEB) 0.5MG/2ML AMP HHN SCH (19:28)
[2019-01-30 20:20] VITALS: BP 141/63; PULSE 91; RESP 18
[2019-01-31] MEDS: DUREZOL 0.05% EYE DROPS RIGHT EYE SCH ×6 (01:56→21:04)
[2019-01-31 02:36] VITALS: BP 138/60; PULSE 89; RESP 18
[2019-01-31] MEDS: LACTULOSE 30ML CUP PO SCH ×4 (05:48→17:42)
[2019-01-31] MEDS: PANTOPRAZOLE (EC) 40 MG TAB PO SCH (05:50)
[2019-01-31] MEDS: BUDESONIDE (NEB) 0.5MG/2ML AMP HHN SCH ×2 (07:41→21:07)
[2019-01-31] MEDS: ALBUTEROL/IPRATROPIUM (NEB) 3 ML AMP HHN SCH ×3 (07:42→21:07)
[2019-01-31] MEDS: metFORMIN 500 MG TAB PO SCH ×2 (07:51→17:42)
[2019-01-31] MEDS: INSULIN ASPART [NOVOLOG] 3 ML PEN SC SCH ×4 (07:51→21:04)
[2019-01-31 07:54] VITALS: BP 126/58; PULSE 89; RESP 18
[2019-01-31] MEDS ORDERED: INSULIN GLARGINE [LANTus] (100 UNITS/ML) SYG SC SCH (08:00)
[2019-01-31] MEDS: BESIFLOXACIN 0.6% RIGHT EYE SCH ×4 (08:51→21:30)
[2019-01-31] MEDS: FUROSEMIDE 20 MG TAB PO SCH (08:51)
[2019-01-31] MEDS: SPIRONOLACTONE 50 MG TAB PO SCH (08:51)
[2019-01-31] MEDS: FERROUS SULFATE (EC) 325 MG TAB PO SCH (08:51)
[2019-01-31] MEDS: RIFAXIMIN 550 MG TAB PO SCH (08:51)
[2019-01-31] MEDS: AMLODIPINE 5 MG TAB PO SCH (08:51)
[2019-01-31] MEDS: NEPAFENAC 0.3% RIGHT EYE SCH (08:52)
--- NOTE | 2019-01-31 12:46 | PN ---
Date/Time of Note Date/Time of Note DATE: 01/31/19 TIME: 12:43 Objective Vitals Vital Signs Date Temp Pulse Resp B/P (MAP) Pulse Ox O2 O2 Flow FiO2 Time Delivery Rate 01/31/19 97.5 89 18 126/58 100 07:54 (80) 01/31/19 21 07:26 01/27/19 Room Air 14:16 Intake and Output 01/30/19 01/30/19 01/31/19 1515:00 23:00 07:00 IntakeIntake Total 980 ml 480 ml OutputOutput Total 100 ml BalanceBalance 980 ml 480 ml -100 ml Results Result Diagram: 01/31/195 01/31/19444 Medications Medications Current Medications Ferrous Sulfate (Ferrous Sulfate (Ec)) 325 mg DAILY PO Last administered on 01/31/19 08:51; Admin Dose 325 MG; Start 01/25/19 at 09:00 Furosemide (Lasix) 20 mg DAILY PO Last administered on 01/31/19 08:51; Admin Dose 20 MG; Start 01/25/19 at 09:00 Meclizine HCl (Antivert) 25 mg DAILY PRN PO DIZZINESS; Start 01/24/19 at 19:00 Pantoprazole (Protonix Tab) 40 mg AC BREAKFAST PO Last administered on 01/31/19 05:50; Admin Dose 40 MG; Start 01/25/19 at 07:30 Rifaximin (Xifaxan) 550 mg DAILY PO Last administered on 01/31/19 08:51; Admin Dose 550 MG; Start 01/25/19 at 09:00 Spironolactone (Aldactone) 50 mg DAILY PO Last administered on 01/31/19 08:51; Admin Dose 50 MG; Start 01/25/19 at 09:00 Acetazolamide (Diamox Sequels) 500 mg BID PO Last administered on 01/25/19 10:47; Admin Dose 500 MG; Start 01/24/19 at 21:00; Status Hold Patient Own Medication 1 ea QID RIGHT EYE Last administered on 01/31/19 08:51; Admin Dose 1 EA; Start 01/25/19 at 17:00 Patient Own Medication 1 ea DAILY RIGHT EYE Last administered on 01/31/19 08:52; Admin Dose 1 EA; Start 01/26/19 at 09:00 Patient Own Medication 1 ea Q4 RIGHT EYE Last administered on 01/31/19at 08:52; Admin Dose 1 EA; Start 01/25/19 at 17:00 Lactulose (Enulose) 20 gm Q6 PO Last administered on 01/31/19at 05:48; Admin Dos e 20 GM; Start 01/25/19 at 18:00 Miscellaneous Information 1 ea NOTE XX ; Start 01/26/19 at 09:30 Glucose (Glutose) 15 gm Q15M PRN PO DECREASED GLUCOSE; Start 01/26/19 at 09:30 Glucose (Glutose) 22.5 gm Q15M PRN PO DECREASED GLUCOSE; Start 01/26/19 at 09:30 Dextrose (D50w Syringe) 25 ml Q15M PRN IV DECREASED GLUCOSE; Start 01/26/19 at 09:30 Dextrose (D50w Syringe) 50 ml Q15M PRN IV DECREASED GLUCOSE; Start 01/26/19 at 09:30 Glucagon (Glucagen) 1 mg Q15M PRN IM DECREASED GLUCOSE; Start 01/26/19 at 09:30 Glucose (Glutose) 15 gm Q15M PRN BUCCAL DECREASED GLUCOSE; Start 01/26/19 at 09:30 Insulin Aspart (Novolog Insulin Pen) NOVOLOG *MILD* ALGORITHM WITH MEALS BEDTIME SC Last administered on 01/30/19at 21:10; Admin Dose 2 UNIT; Start 01/28/19 at 18:05 Amlodipine Besylate (Norvasc) 5 mg DAILY PO Last administered on 01/31/19at 08:51; Admin Dose 5 MG; Start 01/29/19 at 12:00 Metformin HCl (Glucophage) 1,000 mg BID WITH MEALS PO Last administered on 01/31/19at 07:51; Admin Dose 1,000 MG; Start 01/30/19 at 18:00 Albuterol/ Ipratropium (Duoneb) 3 ml Q6HWA RESP THERAPY HHN Last administered on 01/31/19at 07:42; Admin Dose 3 ML; Start 01/30/19 at 20:00 Albuterol/ Ipratropium (Duoneb) 3 ml Q2H RESP THERAPY PRN HHN shortness of breath; Start 01/30/19 at 15:00 Budesonide (Pulmicort (Neb)) 0.5 mg BID RESP THERAPY HHN Last administered on 01/31/19at 07:41; Admin Dose 0.5 MG; Start 01/30/19 at 20:00 VTE Prophylaxis Risk score (from Nsg)>0 risk: 3 SCD applied (from Ns): Yes Lines/Catheters IV Catheter Type: Ham[place] in Place: No Assessment/Plan Hospital Course Subjective patient bruised areas appears to be healing with no new areas, patient doing well with no nasal cannula Objective Physical exam General: Patient is laying in bed and answers questions appropriately Mentation: Patient is alert and oriented to self and place and mildly to situation Head: Normocephalic atraumatic Eyes: EOMI, pupils reactive to light Neck: Supple, nontender, midline Respiratory: Clear to auscultation bilaterally Cardiovascular: regular rate, no obvious murmurs Gastrointestinal: non-tender to palpation, bowel sounds heard. Neurological: Moves all extremities spontaneously Skin: No new skin lesions Assessment/Plan Acute hepatic encephalopathy-resolved - Patient mentation has returned to baseline - CT head performed with no acute abnormalities -Possibly in combination of elevated ammonia along with UTI. Generalized bruising, improving -Likely secondary to trauma and thrombocytopenia, which is secondary to cirrhosis -Coag screen done, INR is mildly elevated 1.42 -No signs of GI bleed however will monitor hemoglobin closely, occult fecal pending -We will monitor closely, it appears patient is having excessive bruising sites usually at sites of IV insertion however there are other sites that are unexplained,. anemia -continues to decrease -studies sent out, retic index showing hypoproliferation so far -no apparent sources of bleed -transfuse as needed Hypoxia, resolving -Mild hypoxia, with ambulation -Chest x-ray done, indicative of small airway disease, DuoNeb and budesonide for now -ABG not showing signs of co2 retention Cirrhosis -VILLAFANA -Continue Lasix and spironolactone Urinary retention/UTI - possible UTI seen on UA, low leuk but high wbc. urine cultures negative, patient received 3 doses of ceftriaxone, will monitor off abx. - may have contributed to AMS - harmon in place, will dc -IV abx will stop DM - A1c noted. -Patient appears to have a very complex history regarding her diabetes. Patient has been fluctuating with her sugar levels with very high doses of Lantus and insulin however the patient's daughter states that once she is on metformin she will need virtually no insulin. On this new information, will attempt to restart metformin 1000 twice a day with insulin sliding scale as coverage taking off the other insulin, will need to re-add new insulin if needed to correct excessive sugars. Hypercalcemia, resolved - possibly due to dehydration. IVF given. monitor Hyperammonemia- improving - 102 earlier this week, now around 30 - continue on lactulose and rifaximin. Increasing lactulose until passing BM and then will titrate for 3-4 BM a day h/o Glaucoma - continue home eye drops - hold off on Diamox for now given patients confusion started after medication. Disposition - Will adjust Lactulose dose for 3-4 BMs daily -Patient's hemoglobin still lowering. studies pending, transfuse as needed NILTON CHAMBERS Jan 31, 2019 12:46
[2019-01-31 15:18] VITALS: BP 134/62; PULSE 89; RESP 18
[2019-01-31 20:05] VITALS: BP 133/62; PULSE 97; RESP 18
[2019-02-01] MEDS: LACTULOSE 30ML CUP PO SCH ×4 (00:52→18:23)
[2019-02-01] MEDS: DUREZOL 0.05% EYE DROPS RIGHT EYE SCH ×6 (00:53→21:34)
[2019-02-01 02:02] VITALS: BP 136/64; PULSE 95; RESP 19
[2019-02-01] MEDS: PANTOPRAZOLE (EC) 40 MG TAB PO SCH (06:04)
[2019-02-01 07:24] VITALS: BP 126/60; PULSE 94; RESP 18
[2019-02-01] MEDS: ALBUTEROL/IPRATROPIUM (NEB) 3 ML AMP HHN SCH (08:00)
[2019-02-01] MEDS: BESIFLOXACIN 0.6% RIGHT EYE SCH ×4 (08:59→21:00)
[2019-02-01] MEDS: NEPAFENAC 0.3% RIGHT EYE SCH (08:59)
[2019-02-01] MEDS: AMLODIPINE 5 MG TAB PO SCH (09:02)
[2019-02-01] MEDS: RIFAXIMIN 550 MG TAB PO SCH (09:02)
[2019-02-01] MEDS: FUROSEMIDE 20 MG TAB PO SCH (09:02)
[2019-02-01] MEDS: FERROUS SULFATE (EC) 325 MG TAB PO SCH (09:02)
[2019-02-01] MEDS: SPIRONOLACTONE 50 MG TAB PO SCH (09:03)
[2019-02-01] MEDS: metFORMIN 500 MG TAB PO SCH ×2 (09:03→18:22)
[2019-02-01] MEDS: INSULIN ASPART [NOVOLOG] 3 ML PEN SC SCH ×4 (09:05→21:33)
[2019-02-01] MEDS: BUDESONIDE (NEB) 0.5MG/2ML AMP HHN SCH (09:06)
[2019-02-01] MEDS ORDERED: SOD CHLORIDE 0.9% 250 ML IV* ONE (12:08)
[2019-02-01 14:19] VITALS: BP 137/60; PULSE 100; RESP 16
--- NOTE | 2019-02-01 14:29 | PN ---
Date/Time of Note Date/Time of Note DATE: 02/01/19 TIME: 14:22 Objective Vitals Vital Signs Date Temp Pulse Resp B/P (MAP) Pulse Ox O2 O2 Flow FiO2 Time Delivery Rate 02/01/19 98.2 100 16 137/60 98 Room Air 14:19 (85) 02/01/19 21 09:05 Results Result Diagram: 02/01/19 0426 02/01/19 0426 Medications Medications Current Medications Ferrous Sulfate (Ferrous Sulfate (Ec)) 325 mg DAILY PO Last administered on 02/01/19 09:02; Admin Dose 325 MG; Start 01/25/19 at 09:00 Furosemide (Lasix) 20 mg DAILY PO Last administered on 02/01/19 09:02; Admin Dose 20 MG; Start 01/25/19 at 09:00 Meclizine HCl (Antivert) 25 mg DAILY PRN PO DIZZINESS; Start 01/24/19 at 19:00 Pantoprazole (Protonix Tab) 40 mg AC BREAKFAST PO Last administered on 02/01/19 06:04; Admin Dose 40 MG; Start 01/25/19 at 07:30 Rifaximin (Xifaxan) 550 mg DAILY PO Last administered on 02/01/19 09:02; Admin Dose 550 MG; Start 01/25/19 at 09:00 Spironolactone (Aldactone) 50 mg DAILY PO Last administered on 02/01/19 09:03; Admin Dose 50 MG; Start 01/25/19 at 09:00 Acetazolamide (Diamox Sequels) 500 mg BID PO Last administered on 01/25/19 10:47; Admin Dose 500 MG; Start 01/24/19 at 21:00; Status Hold Patient Own Medication 1 ea QID RIGHT EYE Last administered on 02/01/19 08:59; Admin Dose 1 EA; Start 01/25/19 at 17:00 Patient Own Medication 1 ea DAILY RIGHT EYE Last administered on 02/01/19 08:59; Admin Dose 1 EA; Start 01/26/19 at 09:00 Patient Own Medication 1 ea Q4 RIGHT EYE Last administered on 02/01/19 13:34; Admin Dose 1 EA; Start 01/25/19 at 17:00 Lactulose (Enulose) 20 gm Q6 PO Last administered on 4/13/19at 13:34; Admin Dose 20 GM; Start 01/25/19 at 18:00 Miscellaneous Information 1 ea NOTE XX ; Start 01/26/19 at 09:30 Glucose (Glutose) 15 gm Q15M PRN PO DECREASED GLUCOSE; Start 01/26/19 at 09:30 Glucose (Glutose) 22.5 gm Q15M PRN PO DECREASED GLUCOSE; Start 01/26/19 at 09:30 Dextrose (D50w Syringe) 25 ml Q15M PRN IV DECREASED GLUCOSE; Start 01/26/19 at 09:30 Dextrose (D50w Syringe) 50 ml Q15M PRN IV DECREASED GLUCOSE; Start 01/26/19 at 09:30 Glucagon (Glucagen) 1 mg Q15M PRN IM DECREASED GLUCOSE; Start 01/26/19 at 09:30 Glucose (Glutose) 15 gm Q15M PRN BUCCAL DECREASED GLUCOSE; Start 01/26/19 at 09:30 Insulin Aspart (Novolog Insulin Pen) NOVOLOG *MILD* ALGORITHM WITH MEALS BEDTIME SC Last administered on 02/01/19at 13:42; Admin Dose 2 UNIT; Start 01/28/19 at 18:05 Amlodipine Besylate (Norvasc) 5 mg DAILY PO Last administered on 02/01/19at 09:02; Admin Dose 5 MG; Start 01/29/19 at 12:00 Metformin HCl (Glucophage) 1,000 mg BID WITH MEALS PO Last administered on 02/01/19at 09:03; Admin Dose 1,000 MG; Start 01/30/19 at 18:00 Albuterol/ Ipratropium (Duoneb) 3 ml Q2H RESP THERAPY PRN HHN shortness of breath; Start 01/30/19 at 15:00 Fluticasone/ Vilanterol (Breo Ellipta 100-25 Mcg Inh) 1 inh DAILY INH ; Start 02/01/19 at 14:00 VTE Prophylaxis Risk score (from Nsg)>0 risk: 4 SCD applied (from Nsg): Yes Lines/Catheters IV Catheter Type: Hernadez in Place: No Assessment/Plan Hospital Course Subjective patient bruised areas appears to continue healing with no new areas, patient doing well with no nasal cannula Objective Physical exam General: Patient is laying in bed and answers questions appropriately Mentation: Patient is alert and oriented to self and place and mildly to situation Head: Normocephalic atraumatic Eyes: EOMI, pupils reactive to light Neck: Supple, nontender, midline Respiratory: Clear to auscultation bilaterally Cardiovascular: regular rate, no obvious murmurs Gastrointestinal: non-tender to palpation, bowel sounds heard. Neurological: Moves all extremities spontaneously Skin: No new skin lesions Assessment/Plan Acute hepatic encephalopathy-resolved - Patient mentation has returned to baseline - CT head performed with no acute abnormalities -Possibly in combination of elevated ammonia along with UTI. Generalized bruising, improving -Likely secondary to trauma and thrombocytopenia, which is secondary to cirrhosis -Coag screen done, INR is mildly elevated 1.42 -No signs of GI bleed however will monitor hemoglobin closely, occult fecal negative, was positive earlier during this admission however there was no significant cause uncertain for GI bleed at that time due to stable hemoglobin levels. After speaking with patient's family, we decided to go with conservative measures and monitor for now -We will monitor closely, it appears patient is having excessive bruising sites usually at sites of IV insertion however there are other sites that are unexplained,. anemia -Stable today -studies sent out, retic index showing hypoproliferation, without significant iron deficiency -no apparent sources of bleed, second fecal occult negative -transfuse as needed, due to the discrepancy of hemoglobin on admission may need to transfuse 1 unit before discharge. As, if patient continues to bruise due to thrombocytopenia her levels will quickly dropped to less than 7.0 Hypoxia, resolving -Mild hypoxia, with ambulation -Chest x-ray done, indicative of small airway disease, change nebulizers to Brio -ABG not showing signs of co2 retention Cirrhosis -VILLAFANA -Continue Lasix and spironolactone -Status post TIPS Urinary retention/UTI - possible UTI seen on UA, low leuk but high wbc. urine cultures negative, patient received 3 doses of ceftriaxone, will monitor off abx. - may have contributed to AMS -Hernadez discontinued -IV abx will stop DM - A1c noted. -Patient appears to have a very complex history regarding her diabetes. Patient has been fluctuating with her sugar levels with very high doses of Lantus and insulin however the patient's daughter states that once she is on metformin she will need virtually no insulin. On this new information, will attempt to restart metformin 1000 twice a day with insulin sliding scale as coverage taking off the other insulin, will need to re-add new insulin if needed to correct excessive sugars. Hypercalcemia, resolved - possibly due to dehydration. IVF given. monitor Hyperammonemia- improving - 102 earlier this week, now around 30 - continue on lactulose and rifaximin. Increasing lactulose until passing BM and then will titrate for 3-4 BM a day h/o Glaucoma - continue home eye drops - hold off on Diamox for now given patients confusion started after medication. Disposition - Will adjust Lactulose dose for 3-4 BMs daily -Patient's hemoglobin needs to continue to be monitored, patient's family now wants home health physical therapy instead of air UNILTON PEREYRA Feb 01, 2019 14:29
[2019-02-01] MEDS: FLUTICASONE/VILANTEROL 100-25 INH SCH (16:15)
[2019-02-01 20:09] VITALS: BP 129/59; PULSE 103; RESP 18
[2019-02-02] MEDS: LACTULOSE 30ML CUP PO SCH ×4 (00:10→12:56)
[2019-02-02] MEDS: DUREZOL 0.05% EYE DROPS RIGHT EYE SCH ×4 (00:11→13:00)
[2019-02-02 02:00] VITALS: BP 122/54; PULSE 96; RESP 18
[2019-02-02] MEDS: PANTOPRAZOLE (EC) 40 MG TAB PO SCH (06:06)
[2019-02-02 07:43] VITALS: BP 135/55; PULSE 97; RESP 17
[2019-02-02] MEDS: INSULIN ASPART [NOVOLOG] 3 ML PEN SC SCH ×2 (08:14→12:59)
[2019-02-02] MEDS: FLUTICASONE/VILANTEROL 100-25 INH SCH (08:15)
[2019-02-02] MEDS: metFORMIN 500 MG TAB PO SCH (08:15)
[2019-02-02] MEDS: AMLODIPINE 5 MG TAB PO SCH (08:16)
[2019-02-02] MEDS: FERROUS SULFATE (EC) 325 MG TAB PO SCH (08:16)
[2019-02-02] MEDS: SPIRONOLACTONE 50 MG TAB PO SCH (08:16)
[2019-02-02] MEDS: RIFAXIMIN 550 MG TAB PO SCH (08:16)
[2019-02-02] MEDS: BESIFLOXACIN 0.6% RIGHT EYE SCH ×2 (08:17→13:00)
[2019-02-02] MEDS: FUROSEMIDE 20 MG TAB PO SCH (08:17)
[2019-02-02] MEDS: NEPAFENAC 0.3% RIGHT EYE SCH (08:18)
[2019-02-02] MEDS ORDERED: ADV25050 INHALATION (12:36)
[2019-02-02] MEDS ORDERED: AMLO-145 PO (12:36)
[2019-02-02] MEDS ORDERED: LACT20SO2 PO (12:36)
--- NOTE | 2019-02-02 12:40 | PDOCDIS ---
Discharge Instructions CONDITION [id number] Patient Condition: [id number] Stable FOLLOW UP/APPOINTMENTS Follow-up Plan 1. Please follow-up with your primary care provider as soon as possible 2. Please do not restart acetazolamide until after you see your corporate director of pharmacy 3. Please continue home medications except for acetazolamide 4. Please follow-up with your lamp shade maker as soon as possible for scheduled colonoscopy to rule out colon cancer for fecal occult that was positive 5. Please follow-up with your shop tailor apprentice regarding patient's high heart rate. NILTON CHAMBERS Feb 02, 2019 12:40
--- NOTE | 2019-02-02 12:47 | DS ---
Date/Time of Note Date/Time of Note DATE: 02/02/19 TIME: 12:47 Discharge Summary Admission/Discharge Info Admit Date/Time Jan 24, 2019 at 17:21 Discharge Date/Time Patient Condition: Stable Hospital Course Patient is an Greek female with a past medical history significant for moderate dementia, nonalcoholic cirrhosis, thrombus cytopenia, chronic shortness of breath on exertion, diabetes mellitus, glaucoma who presents to [facility] for altered mental status. Patient's ammonia level was extremely high as patient not been able to tolerate her usual lactulose dose due to excessive diarrhea. Patient also was found to have a small UTI and was treated with the appropriate length of IV antibiotic. Patient's ammonia subsequently resolved the patient's mental status returned to normal limits. Patient stay did involve other workup, patient does have some degree of anemia, a mild drop was noticed when patient had excessive bruising likely secondary to IV insertions that did resolve. Patient's anemia was monitored and once assured that patient's hemoglobin was stable patient was discharged it is of note that patient's fecal occult was positive on earlier in test however the most recent one was negative. GI consultation for colonoscopy was offered to patient and patient's family however they stated that they will follow-up with their GI doctor and get colonoscopy in the outpatient setting. Risks of not getting colonoscopy right now including undiagnosed GI cancer was explained to the patient's family. Originally it was plan to send patient to the acute rehab unit due to generalized debility however over the course of the stay, patient's family and patient changed her mind and stated that they will be able to provide 24-hour care at home and we will arrange home health physical therapy. I urged patient's family to reconsider given patient's fragile state however patient's family stated that they will take full responsibility. Patient is currently at baseline, patient does have a tachycardia that is not symptomatic and when offered cardiac workup, patient's family stated that they will follow-up with their primary care doctor and residential mental health worker instead of spending additional time for cardiac workup. Patient is to continue on her previous medications except for her acetazolamide until she sees manager music. Patient will also be discharged with a small dose of blood pressure medication as well as a prescription for Advair as patient likely does have some degree of airway disease given her was a smoker in the past. Patient otherwise is doing well and back to baseline, will be discharged under the care of family for 24- hour care and we will arrange home health physical therapy. Discharge diagnosis Acute hepatic encephalopathy, resolved Generalized bruising, improving Anemia, stable Hypoxia, resolving Cirrhosis, Urinary retention, resolved Diabetes mellitus Electrolyte derangement, Glaucoma, chronic Home Meds Active Scripts Salmeterol Xinaf/Fluticasone* (Advair*) 250-50 Diskus Inhaler, 1 INH INHALATION BID, #1 INHALER Prov:NILTON CHAMBERS 02/02/19 Lactulose* (Lactulose*) 20 Gm/30 Ml Solution, 20 GM PO Q6 for 30 Days Prov:NILTON CHAMBERS 02/02/19 Amlodipine Besylate* (Amlodipine Besylate*) 5 Mg Tablet, 5 MG PO DAILY for 30 Days, #30 TAB Prov:NILTON CHAMBERS 02/02/19 Reported Medications Nepafenac (ILEVRO) 1.7 Ml Drops.susp, 1.7 ML OP 01/24/19 Besifloxacin Hydrochloride (Besivance) 5 Ml Drops.susp, 5 ML OP 01/24/19 Difluprednate (Durezol) 5 Ml Drops, 5 ML OP, BOTTLE 01/24/19 Insulin Aspart* (Novolog Insulin Pen*) 100 Unit/Ml Soln, 12 UNIT SC, EA THE DAUGHTER UNABLE TO VERIFIED FREQUENCY 01/24/19 Furosemide* (Furosemide*) 20 Mg Tablet, 20 MG PO DAILY, #60 TAB 01/24/19 Spironolactone* (Aldactone*) 50 Mg Tablet, 50 MG PO DAILY, #30 TAB 01/24/19 Metformin Hcl* (Metformin Hcl*) 1,000 Mg Tablet, 1000 MG PO WITH BREAKFAST, #30 TAB 01/24/19 Rifaximin* (Xifaxan*) 550 Mg Tablet, 550 MG PO DAILY, TAB 01/24/19 Pantoprazole* (Pantoprazole*) 40 Mg Tablet.dr, 40 MG PO AC BREAKFAST, TAB 01/24/19 Meclizine Hcl* (Meclizine Hcl*) 25 Mg Tablet, 25 MG PO DAILY PRN for DIZZINESS, TAB 01/24/19 Ferrous Sulfate* (Ferrous Sulfate*) 325 Mg Tabec, 325 MG PO DAILY, TAB 01/24/19 Discontinued Reported Medications Insulin Detemir (Levemir) 100 Unit/1 Ml Vial, 60 UNITS THE DAUGHTER UNABLE TO VERIFIED FREQUENCY 01/24/19 Acetazolamide* (Acetazolamide* ER) 500 Mg Capsule.er, 500 MG PO BID, #60 CAP 01/24/19 Follow-up Plan 1. Please follow-up with your primary care provider as soon as possible 2. Please do not restart acetazolamide until after you see your manager music 3. Please continue home medications except for acetazolamide 4. Please follow-up with your desktop engineer as soon as possible for scheduled colonoscopy to rule out colon cancer for fecal occult that was positive 5. Please follow-up with your residential mental health worker regarding patient's high heart rate. Primary Care Provider Not On Staff Doctor Time spent on discharge: > 30 minutes Pending Labs Laboratory Tests Test 02/01/19 13:32 02/01/19 18:13 02/01/19 21:06 02/02/19 01:50 Bedside 218 193 191 182 Glucose mg/dL (70-220) mg/dL (70-220) mg/dL (70-220) mg/dL (70-220) Test 02/02/19 05:00 02/02/19 05:01 02/02/19 08:09 Sodium Level 140 mmol/L (135-144 ) Potassium 4.2 Level mmol/L (3.5-5.1 ) Chloride Level 113 mmol/L (97-110) Carbon Dioxide 12 Level mmol/L (21-31) Anion Gap 15 (5-13) Blood Urea 30 mg/dl (7-20) Nitrogen Creatinine 0.74 mg/dl (0.44-1.0 0) Est Glomerular > 60 Filtrat mL/min (>60) Rate mL/min Glucose Level 153 mg/dl (70-220) Calcium Level 9.9 mg/dl (8.4-10.2 ) Phosphorus 4.6 Level mg/dl (2.5-4.9) Magnesium 2.1 Level mg/dl (1.7-2.5) White Blood 10.9 Count 10^3/ul (4.8-1 0.8) Red Blood 2.60 Count 10^6/ul (4.20- 5.40) Hemoglobin 8.4 g/dl (12.0-16. 0) Hematocrit 23.9 % (37.0-47.0) Mean 91.9 Corpuscular fl (82.0-101.0 Volume ) Mean 32.3 Corpuscular pg (29.0-33.0) Hemoglobin Mean 35.1 Corpuscular g/dl (32.0-37. Hemoglobin Conc 0) ent Red Cell 18.6 Distribution % (11.5-14.5) Width Platelet Count 76 10^3/UL (140-4 15) Mean Platelet 10.1 Volume fl (7.4-10.4) Immature 0.900 Granulocytes % % (0.001-0.429 ) Neutrophils % 53.1 % (39.0-77.0) Lymphocytes % 30.6 % (15.0-51.0) Monocytes % 11.2 % (0.0-11.0) Eosinophils % 3.5 % (0.0-7.0) Basophils % 0.7 % (0.0-2.0) Nucleated Red 0.0 Blood Cells % /100WBC (0.0-0 .0) Immature 0.100 Granulocytes # 10^3/ul (0.0-0 .031) Neutrophils # 5.8 10^3/ul (1.6-7 .5) Lymphocytes # 3.4 10^3/ul (0.8-2 .9) Monocytes # 1.2 10^3/ul (0.3-0 .9) Eosinophils # 0.4 10^3/ul (0.0-0 .5) Basophils # 0.1 10^3/ul (0.0-0 .1) Nucleated Red 0.0 Blood Cells # 10^3/ul (0.0-0 .0) Bedside 170 Glucose mg/dL (70-220) NILTON CHAMBERS Feb 02, 2019 12:47
[2019-02-02 16:03] VITALS: BP 134/57; PULSE 94; RESP 16
== END 2019-02-02 17:30 | disposition home health service (06) | DRG 442 ==
LOC: E/R 15:01 → PP2 17:21 → 2NE 01-28 22:30
PROVIDERS: ADMIT Internal Medicine; ATTEND Internal Medicine
DX: K72.00 Acute and subacute hepatic failure without coma (principal); E87.2 Acidosis; E72.20 Disorder of urea cycle metabolism, unspecified; N39.0 Urinary tract infection, site not specified; K74.60 Unspecified cirrhosis of liver; R33.9 Retention of urine, unspecified; E83.52 Hypercalcemia; E11.9 Type 2 diabetes mellitus without complications; E86.0 Dehydration; H40.9 Unspecified glaucoma; K75.81 Nonalcoholic steatohepatitis (NASH); D69.59 Other secondary thrombocytopenia; D64.9 Anemia, unspecified; R09.02 Hypoxemia; F03.90 Unspecified dementia, unspecified severity, without behavioral disturbance, psychotic disturbance, mood disturbance, and anxiety
CPT/HCPCS: 36415; 36600; 70450; 71045; 72125; 76700; 80048; 80053; 80076; 80307; 81001; 82140; 82270; 82728; 82803; 82962; 83010; 83036; 83540; 83605; 83615; 83735; 84100; 85025; 85045; 85049; 85610; 85670; 85730; 86850; 86900; 86901; 86920; 87086; 92610; 93005; 94640; 94664; 96374; 97116; 97162; 97165; 97530; J0696; J1630; J1815; J3475; J3480; J7030; J7070

== ENCOUNTER 2019-04-15 03:57 | Inpatient (IN) | payer MEDICARE, OTHER ==
[~2019-04-15] VITALS: Ht 165.1 cm; Wt 68.6 kg
[2019-04-15] VITALS (9 sets, daily range): BP systolic 139–145; BP diastolic 64–65; PULSE 79–91; RESP 16–20; Ht 165.1 cm; Wt 68.6 kg
[~2019-04-15 03:57] MED LIST changes: +ADV25050 INHALATION; +AMLO-145 PO; -ASCO500C7 PO; +BESI5DRO OP; -CALC500T91 PO; -CHOL400T10 PO; -CLOT15CR6 TOP; +DIFL5DRO OP; +FER325 PO; -FURO-110 PO; +FURO20TA3 PO; -GABA100C14 PO; -LEVEM SC; +METF100010 PO; -METO10TA92 PO; -MTF1000T PO; -MULT-853 PO; +NEPA1.7D OP; +NOVO3I SC; -PANT40TA3 PO; +PANT40TA4 PO; +SPIR50TA PO
[2019-04-15] MEDS ORDERED: SOD CHLORIDE 0.9% 500 ML IV STA (04:01)
[2019-04-15] MEDS ORDERED: ONDANSETRON 4 MG INJ IV PRN ×2 (05:30→06:00)
[2019-04-15] MEDS ORDERED: ACETAMINOPHEN 325 MG TAB PO PRN (05:30)
[2019-04-15] MEDS ORDERED: SOD CHLORIDE 0.9% 1,000 ML IV SCH (05:36)
[2019-04-15] MEDS ORDERED: BISACODYL (EC) 5 MG TAB PO PRN (06:00)
[2019-04-15] MEDS ORDERED: NACL 0.9% 3 ML SYG IV SCH (06:00)
[2019-04-15] MEDS ORDERED: ACETAMINOPHEN 650 MG SUPP PR PRN (06:00)
[2019-04-15] MEDS ORDERED: DOCUSATE SODIUM 100 MG CAP PO PRN (06:00)
[2019-04-15] MEDS ORDERED: LACTULOSE ENEMA 1,000 ML BTL PR SCH (06:00)
[2019-04-15] MEDS: LACTULOSE 30ML CUP PO SCH ×3 (06:31→17:36)
[2019-04-15] MEDS ORDERED: hydrALAzine 20 MG INJ IV PRN (07:00)
--- NOTE | 2019-04-15 07:02 | HP ---
Date/Time of Note Date/Time of Note DATE: 04/15/19 TIME: 06:45 Assessment/Plan VTE Prophylaxis SCD applied (from Nsg): Yes Pharmacological prophylaxis: NA/contraindicated Pharm contraindication: low risk/ambulating Lines/Catheters IV Catheter Type (from Nrsg): Saline Lock Assessment/Plan Hospital Course This is a 69-year female being admitted to the telemetry floor for: 1. Acute acute on chronic encephalopathy: Possibly multifactorial secondary to underlying UTI, hepatic encephalopathy. Ammonia level significantly elevated at 254. Patient also has evidence of possible UTI on urinalysis. Will insert NG tube, confirm placement with chest x-ray. Lactulose p.o. and per rectum with a goal of 3-4 BMs per day. Rifaximin. Will monitor ammonia level. Will need to confirm with family regarding patient's home medications. 2. UTI: ceftriaxone, await culture results. 3. DM hemoglobin A1c was 5.3 on 01/24. Given that she is n.p.o., will monitor hypoglycemic episodes with insulin sliding scale. 4. Lactic Acidosis : lactic acid 3.1. Likely secondary to dehydration, and metformin. Will hold metformin. And hydrate the patient. Monitor lactic acid levels. 5. Dehydration: Normal saline 6. Nonalcoholic cirrhosis: Elevated ammonia level 254. Will continue rifaximin and lactulose at the current time. Proceed with initiating other home medications once indicated 7. Moderate dementia: Monitor closely, supportive care 8. h/o Glaucoma: We will need to confirm patient's home medications 9. Hypertension: PRN hydralazine, resume oral medications when clinically indicated 10. DVT GI prophylaxis: SCDs, Protonix IV Further treatment strategy will be implemented as per the clinical course Result Diagram: 04/15/19 0414 04/15/19 0414 Results 24hrs Laboratory Tests Test 04/15/19 04:11 04/15/19 04:14 04/15/19 05:26 04/15/19 06:09 Bedside Glucose 325 H White Blood Count 2.7 #L Red Blood Count 2.82 L Hemoglobin 8.5 L Hematocrit 25.3 L Mean Corpuscular 89.7 Volume Mean Corpuscular 30.1 Hemoglobin Mean Corpuscular 33.6 Hemoglobin Concen t Red Cell 14.8 #H Distribution Width Platelet Count 56 #L Mean Platelet 11.5 H Volume Immature 1.900 H Granulocytes % Neutrophils % 59.2 Lymphocytes % 26.2 Monocytes % 10.1 Eosinophils % 1.9 Basophils % 0.7 Nucleated Red 0.0 Blood Cells % Immature 0.050 H Granulocytes # Neutrophils # 1.6 Lymphocytes # 0.7 L Monocytes # 0.3 Eosinophils # 0.1 Basophils # 0.0 Nucleated Red 0.0 Blood Cells # Sodium Level 142 Potassium Level 4.2 Chloride Level 113 H Carbon Dioxide 23 Level Anion Gap 6 Blood Urea 20 Nitrogen Creatinine 0.88 Est Glomerular > 60 Filtrat Rate mL/min Glucose Level 316 H POC Venous 3.1 *H Lactate Calcium Level 9.4 Total Bilirubin 1.1 Direct Bilirubin 0.00 Indirect 1.1 Bilirubin Aspartate Amino 41 Transf (AST/SGOT) Alanine 34 Aminotransferase (ALT/SGPT) Alkaline 130 H Phosphatase Ammonia 254 #H Total Protein 6.3 Albumin 3.2 L Globulin 3.10 Albumin/Globulin 1.03 Ratio Salicylates Level < 1.0 L Acetaminophen < 10.0 L Level Ethyl Alcohol < 10.0 H Level Urine Color YELLOW Urine Clarity SLIGHTLY CLOUDY A Urine pH 5.0 Urine Specific 1.010 Ephraim Urine Ketones NEGATIVE Urine Nitrite POSITIVE A Urine Bilirubin NEGATIVE Urine NEGATIVE Urobilinogen Urine Leukocyte 1+ H Esterase Urine Microscopic 3 RBC Urine Microscopic 53 H WBC Urine Bacteria FEW A Urine Hyaline FEW A Casts Urine Yeast MANY A (Budding) Urine Hemoglobin 1+ H Urine Glucose NEGATIVE Urine Total NEGATIVE Protein Urine Opiates NEGATIVE Screen Urine NEGATIVE Barbiturates Urine NEGATIVE Amphetamines Screen Urine NEGATIVE Benzodiazepines Screen Urine Cocaine NEGATIVE Screen Urine NEGATIVE Cannabinoids Lactic Acid Level 1.7 HPI/ROS Admit Date/Time Admit Date/Time Hx of Present Illness Chief complaint: Altered, nonverbal The following history was obtained from the nursing documentation as well as from the previous chart as patient was unable to give a history given patient's altered mental status. This is a 69-year-old female with a past medical history of moderate dementia, nonalcoholic cirrhosis, thrombocytopenia, chronic shortness of breath on exertion, diabetes mellitus, glaucoma who presented to the emergency department from home with symptoms of increasing altered status x1 today. Patient apparently has per the family had worsening symptoms over the last hour prior to being sent to the ER. Patient was observed in the emergency department to be nonverbal with only gurgling noises and moaning. The patient was withdrawing to pain. Patient does have a history of Alzheimer's and does normatively ambulate with a walker. His blood sugar per EMS was 80. Patient's ammonia level in the emergency department was noted to be 254. Upon my examination of the patient at the bedside patient does withdraw to pain and she does track with her eyes, however she is otherwise as described above. Allergies: Aspirin, morphine Medications: See ALLEN MACKENZIE Subjective hx not possible: pt non-verbal (Altered) PMH/Family/Social Past Medical History moderate dementia, nonalcoholic cirrhosis, thrombus cytopenia, chronic shortness of breath on exertion, diabetes mellitus, glaucoma Medications Current Medications Ondansetron HCl (Zofran Inj) 4 mg ER BRIDGE PRN IV NAUSEA/VOMITING; Start 04/15/19 at 05:30; Stop 04/16/19 at 05:29 Acetaminophen (Tylenol Tab) 650 mg ER BRIDGE PRN PO .MILD PAIN 1-3 OR TEMP; Start 04/15/19 at 05:30; Stop 04/16/19 at 05:29 Sodium Chloride 1,000 ml @ 70 mls/hr [id number] IV Last administered on 04/15/19at 05:49; Admin Dose 70 MLS/HR; Start 04/15/19 at 05:36 IV Flush (NS 3 ml) 3 ml PER PROTOCOL IV ; Start 04/15/19 at 06:00 Ondansetron HCl (Zofran Inj) 4 mg Q6H PRN IV NAUSEA/VOMITING; Start 04/15/19 at 06:00 Acetaminophen (Tylenol Supp) 650 mg Q6H PRN AL .PAIN 1-3 OR TEMP; Start 04/15/19 at 06:00 Docusate Sodium (Colace) 100 mg Q12H PRN PO .CONSTIPATION; Start 04/15/19 at 06:00 Bisacodyl (Dulcolax) 5 mg DAILY PRN PO .CONSTIPATION; Start 04/15/19 at 06:00 Lactulose (Lactulose Enema) 100 ml Q8 AL Last administered on 04/15/19at 06:31; Admin Dose 100 ML; Start 04/15/19 at 06:00 Lactulose (Enulose) 20 gm Q6 PO Last administered on 04/15/19at 06:31; Admin Dose 20 GM; Start 04/15/19 at 06:00 Ceftriaxone Sodium 50 ml @ 100 mls/hr Q24H IVPB ; Start 04/15/19 at 07:00; Status UNV Coded Allergies: morphine (Unverified Allergy, Mild, 01/24/19) FACIAL REDNESS aspirin (Unverified Adverse Reaction, Unknown, 01/24/19) Past Surgical History TIPS 2010 Past Surgical Hx: other Family History Significant Family History: no pertinent family hx Social History Smoking Status: Unknown if ever smoked Exam/Review of Systems Vital Signs Vitals Vital Signs Date Temp Pulse Resp B/P (MAP) Pulse Ox O2 O2 Flow FiO2 Time Delivery Rate 04/15/19 89 14 158/50 100 Room Air 05:24 (86) 04/15/19 97.4 03:59 Exam Exam General: Currently lying in bed, she does track with her eyes, she does retract the pain and moan to pain, HEENT: Atraumatic, normocephalic. The pupils are equal, round and reactive. Extraocular motor are intact, dry mucous membranes Neck: Supple with full range of motion. No rigidity or meningismus Chest: Nontender Lungs: Clear to auscultation bilaterally no crackles rales or wheezing Heart: Normal S1-S2, Regular rhythm and rate. No murmur, S3, or S4 Abdomen: Soft , nontender, nondistended , bowel sounds are present. No guarding no rebound tenderness , No masses or organomegaly. No costovertebral temporal angle mass Extremities: Normal to inspection, no edema no cyanosis Neurologic: Altered, tracks with her eyes, retract the pain, further neurological examination unable to be performed given patient's encephalopathy. Additional Comments PROCEDURE: CT Brain without contrast. CLINICAL INDICATION: Altered mental status TECHNIQUE: CT scan of the brain was performed on a multidetector high- resolution CT scan. Axial imaging was obtained of the brain without contrast administration. Coronal and sagittal reformatted images were obtained from the axial source images. Standard CT scan of the head without contrast protocols were performed. The total exam CTDI equals 39.64 mGy and the total exam DLP equals 713.51 mGy- cm. One or more of the following dose reduction techniques were used: - Automated exposure control. - Adjustment of the mA and/or kV according to patient size. Use of iterative reconstruction technique. Dicom images are available COMPARISON: CT head without contrast 01/24/2019 FINDINGS: The ventricular system and peripheral CSF spaces are proportionate prominent consistent with mild to moderate generalized cerebral and cerebellar volume loss. Mild periventricular deep white matter changes that is nonspecific and consistent with chronic microvascular ischemic disease. No evidence of intracranial masses hemorrhages or midline shift. Lowe-white matter differentiation is unremarkable. The bones of the calvarium are intact. Calcific atherosclerosis of the cavernous carotid arteries. The paranasal sinuses and mastoids are unremarkable. The bones of the calvarium are intact. Soft tissues unremarkable. IMPRESSION: 1. Mild to moderate generalized cerebral volume loss and mild nonspecific chronic microvascular ischemic disease. 2. No evidence of intracranial masses hemorrhages or midline shift. RPTAT:AAJJ Physician Zechariah Date Time Electronically viewed and signed by Physician Zechariah on 04/15/2019 05:21 BM/ CC: ANGELICA VARGHESE [id number] PROCEDURE: XR Chest. CLINICAL INDICATION: Altered mental status TECHNIQUE: AP portable semi upright chest was obtained COMPARISON: Chest 09/02/2016 FINDINGS: Patient is rotated to the right. Hypoventilatory chest. Heart normal limits in size. No evidence of pulmonary vascular congestion acute lung consolidation pleural effusions and pneumothorax. IMPRESSION: No evidence of acute cardiopulmonary disease. RPTAT:AAJJ Physician Zechariah Date Time Electronically viewed and signed by Physician Zechariah on 04/15/2019 04:33 BM/ CC: ANGELICA VARGHESE [id number] ATNISHA HANSEN Apr 15, 2019 06:55
[2019-04-15] MEDS ORDERED: GLUCAGON 1 MG INJ IM PRN (07:30)
[2019-04-15] MEDS ORDERED: GLUCOSE GEL 15 GRAM TUBE PO PRN ×2 (07:30)
[2019-04-15] MEDS ORDERED: GLUCOSE GEL 15 GRAM TUBE BUCCAL PRN (07:30)
[2019-04-15] MEDS ORDERED: DEXTROSE 50% 50 ML SYRINGE IV PRN ×2 (07:30)
[2019-04-15] MEDS: CEFTRIAXONE 1 GM/50 ML (PMX) 50 ML IVPB SCH (07:41)
--- NOTE | 2019-04-15 10:09 | PN ---
Date/Time of Note Date/Time of Note DATE: 04/15/19 TIME: 10:05 Assessment/Plan VTE Prophylaxis SCD applied (from Nsg): Yes Pharmacological prophylaxis: NA/contraindicated Pharm contraindication: low risk/ambulating Lines/Catheters IV Catheter Type (from Nrsg): Saline Lock Assessment/Plan Assessment/Plan 69-year woman with Alzheimer's and cirrhosis with hepatic encephalopathy admitted for severe lethargy. # acute on chronic encephalopathy: - multifactorial secondary to underlying UTI, hepatic encephalopathy. - Ammonia level significantly elevated at 254. Patient also has evidence of possible UTI on urinalysis. - NG tube in, start lactulose PO with goal 3-4 BMs per day. Also rifaximin. # DM - hemoglobin A1c was 5.3 on 01/24. Given that she is n.p.o., will monitor hypoglycemic episodes with insulin sliding scale. # Lactic Acidosis : - lactic acid 3.1. Likely secondary to dehydration, and metformin. Will hold metformin. Avoid excessive crystalloids due to cirrhosis. # Nonalcoholic cirrhosis: - Elevated ammonia level 254. Will continue rifaximin and lactulose at the current time. Proceed with initiating other home medications once indicated # Moderate dementia: Monitor closely, supportive care # h/o Glaucoma: We will need to confirm patient's home medications # Hypertension: PRN hydralazine, resume oral medications when clinically indicated # DVT GI prophylaxis: SCDs, Protonix IV Result Diagram: 04/15/19 0414 04/15/19 0414 Subjective 24 Hr Interval Summary Free Text/Dictation No acute overnight events. Patient admitted to telemetry, still obtunded. Exam/Review of Systems Exam Vitals Vital Signs Date Temp Pulse Resp B/P (MAP) Pulse Ox O2 O2 Flow FiO2 Time Delivery Rate 04/15/19 96.5 79 16 140/64 98 Room Air 09:34 (89) Exam General: Currently lying in bed, she does track with her eyes, she does retract the pain and moan to pain, HEENT: Atraumatic, normocephalic. The pupils are equal, round and reactive. Extraocular motor are intact, dry mucous membranes Neck: Supple with full range of motion. No rigidity or meningismus Chest: Nontender Lungs: Clear to auscultation bilaterally no crackles rales or wheezing Heart: Normal S1-S2, Regular rhythm and rate. No murmur, S3, or S4 Abdomen: Soft , nontender, slightly distended , bowel sounds are present. No guarding no rebound tenderness , Extremities: Normal to inspection, no edema no cyanosis Neurologic: Moves all extremities; grimaces to sternal rub. Eyes closed, breathing, protecting airway. Results Results 24hrs Laboratory Tests Test 04/15/19 04:11 04/15/19 04:14 04/15/19 05:26 04/15/19 06:09 Bedside Glucose 325 H White Blood Count 2.7 #L Red Blood Count 2.82 L Hemoglobin 8.5 L Hematocrit 25.3 L Mean Corpuscular 89.7 Volume Mean Corpuscular 30.1 Hemoglobin Mean Corpuscular 33.6 Hemoglobin Concen t Red Cell 14.8 #H Distribution Width Platelet Count 56 #L Mean Platelet 11.5 H Volume Immature 1.900 H Granulocytes % Neutrophils % 59.2 Lymphocytes % 26.2 Monocytes % 10.1 Eosinophils % 1.9 Basophils % 0.7 Nucleated Red 0.0 Blood Cells % Immature 0.050 H Granulocytes # Neutrophils # 1.6 Lymphocytes # 0.7 L Monocytes # 0.3 Eosinophils # 0.1 Basophils # 0.0 Nucleated Red 0.0 Blood Cells # Sodium Level 142 Potassium Level 4.2 Chloride Level 113 H Carbon Dioxide 23 Level Anion Gap 6 Blood Urea 20 Nitrogen Creatinine 0.88 Est Glomerular > 60 Filtrat Rate mL/min Glucose Level 316 H POC Venous 3.1 *H Lactate Calcium Level 9.4 Total Bilirubin 1.1 Direct Bilirubin 0.00 Indirect 1.1 Bilirubin Aspartate Amino 41 Transf (AST/SGOT) Alanine 34 Aminotransferase (ALT/SGPT) Alkaline 130 H Phosphatase Ammonia 254 #H Total Protein 6.3 Albumin 3.2 L Globulin 3.10 Albumin/Globulin 1.03 Ratio Salicylates Level < 1.0 L Acetaminophen < 10.0 L Level Ethyl Alcohol < 10.0 H Level Urine Color YELLOW Urine Clarity SLIGHTLY CLOUDY A Urine pH 5.0 Urine Specific 1.010 [place]rone Urine Ketones NEGATIVE Urine Nitrite POSITIVE A Urine Bilirubin NEGATIVE Urine NEGATIVE Urobilinogen Urine Leukocyte 1+ H Esterase Urine Microscopic 3 RBC Urine Microscopic 53 H WBC Urine Bacteria FEW A Urine Hyaline FEW A Casts Urine Yeast MANY A (Budding) Urine Hemoglobin 1+ H Urine Glucose NEGATIVE Urine Total NEGATIVE Protein Urine Opiates NEGATIVE Screen Urine NEGATIVE Barbiturates Urine NEGATIVE Amphetamines Screen Urine NEGATIVE Benzodiazepines Screen Urine Cocaine NEGATIVE Screen Urine NEGATIVE Cannabinoids Lactic Acid Level 1.7 Test 04/15/19 08:06 04/15/19 09:05 Lactic Acid Level 2.2 *H Bedside Glucose 298 H Medications Medication Current Medications Ondansetron HCl (Zofran Inj) 4 mg ER BRIDGE PRN IV NAUSEA/VOMITING; Start 04/15/19 at 05:30; Stop 04/16/19 at 05:29 Acetaminophen (Tylenol Tab) 650 mg ER BRIDGE PRN PO .MILD PAIN 1-3 OR TEMP; Start 04/15/19 at 05:30; Stop 04/16/19 at 05:29 Sodium Chloride 1,000 ml @ 70 mls/hr [id number] IV Last administered on 04/15/19at 05:49; Admin Dose 70 MLS/HR; Start 04/15/19 at 05:36 IV Flush (NS 3 ml) 3 ml PER PROTOCOL IV ; Start 04/15/19 at 06:00 Ondansetron HCl (Zofran Inj) 4 mg Q6H PRN IV NAUSEA/VOMITING; Start 04/15/19 at 06:00 Acetaminophen (Tylenol Supp) 650 mg Q6H PRN [place] .PAIN 1-3 OR TEMP; Start 04/15/19 at 06:00 Docusate Sodium (Colace) 100 mg Q12H PRN PO .CONSTIPATION; Start 04/15/19 at 06:00 Bisacodyl (Dulcolax) 5 mg DAILY PRN PO .CONSTIPATION; Start 04/15/19 at 06:00 Lactulose (Lactulose Enema) 100 ml Q8 [place] Last administered on 04/15/19at 06:31; Admin Dose 100 ML; Start 04/15/19 at 06:00 Lactulose (Enulose) 20 gm Q6 PO Last administered on 04/15/19at 06:31; Admin Dose 20 GM; Start 04/15/19 at 06:00 Ceftriaxone Sodium 50 ml @ 100 mls/hr Q24H IVPB Last administered on 04/15/19at 07:41; Admin Dose 100 MLS/HR; Start 04/15/19 at 07:00 Diagnostic Test (Pha) (Accu-Chek) 1 ea 02 XX ; Start 04/16/19 at 02:00 Insulin Aspart (Novolog Insulin Pen) NOVOLOG *MILD* ALGORI... Q4 SC ; Start 04/15/19 at 09:00 Rifaximin (Xifaxan) 550 mg DAILY PO ; Start 04/15/19 at 09:00 Hydralazine HCl (Apresoline) 10 mg Q4H PRN IV ELEVATED BLOOD PRESSURE; Start 04/15/19 at 07:00 Miscellaneous Information 1 ea NOTE XX ; Start 04/15/19 at 07:30 Glucose (Glutose) 15 gm Q15M PRN PO DECREASED GLUCOSE; Start 04/15/19 at 07:30 Glucose (Glutose) 22.5 gm Q15M PRN PO DECREASED GLUCOSE; Start 04/15/19 at 07:30 Dextrose (D50w Syringe) 25 ml Q15M PRN IV DECREASED GLUCOSE; Start 04/15/19 at 07:30 Dextrose (D50w Syringe) 50 ml Q15M PRN IV DECREASED GLUCOSE; Start 04/15/19 at 07:30 Glucagon (Glucagen) 1 mg Q15M PRN IM DECREASED GLUCOSE; Start 04/15/19 at 07:30 Glucose (Glutose) 15 gm Q15M PRN BUCCAL DECREASED GLUCOSE; Start 04/15/19 at 07:30 JEARMY FERRO MD Apr 15, 2019 10:09
[2019-04-15] MEDS: INSULIN ASPART [NOVOLOG] 3 ML PEN SC SCH ×4 (10:35→21:32)
[2019-04-15] MEDS: RIFAXIMIN 550 MG TAB PO SCH (17:36)
[2019-04-16] VITALS (11 sets, daily range): BP systolic 133–175; BP diastolic 61–72; PULSE 85–95; RESP 17–20
[2019-04-16] MEDS: LACTULOSE 30ML CUP PO SCH ×4 (00:19→17:26)
[2019-04-16] MEDS: INSULIN ASPART [NOVOLOG] 3 ML PEN SC SCH ×6 (01:05→21:02)
[2019-04-16] MEDS ORDERED: ACCU-CHEK XX SCH (02:00)
[2019-04-16] MEDS: CEFTRIAXONE 1 GM/50 ML (PMX) 50 ML IVPB SCH (06:55)
[2019-04-16] MEDS: RIFAXIMIN 550 MG TAB PO SCH (09:14)
--- NOTE | 2019-04-16 15:39 | PN ---
Date/Time of Note Date/Time of Note DATE: 04/16/19 TIME: 15:38 Assessment/Plan VTE Prophylaxis Risk score (from Ns)>0 risk: 6 SCD applied (from Ns): Yes Pharmacological prophylaxis: NA/contraindicated Pharm contraindication: low risk/ambulating Lines/Catheters [facility] Peripheral IV Urinary Cath still in place: Yes Reason Cath still needed: other (indicate) (not needed) Assessment/Plan Assessment/Plan 69-year woman with Alzheimer's and cirrhosis with hepatic encephalopathy admitted for severe lethargy. # acute on chronic encephalopathy: - multifactorial secondary to underlying UTI, hepatic encephalopathy. - Ammonia level significantly elevated at 254. Patient also has evidence of possible UTI on urinalysis. - NG tube out. Continue lactulose. # DM - hemoglobin A1c was 5.3 on 01/24. Given that she is n.p.o., will monitor hypoglycemic episodes with insulin sliding scale. # Lactic Acidosis : - lactic acid 3.1. Likely secondary to dehydration, and metformin. Will hold metformin. Avoid excessive crystalloids due to cirrhosis. # Nonalcoholic cirrhosis: - Elevated ammonia level 254. Will continue rifaximin and lactulose at the current time. Proceed with initiating other home medications once indicated # Moderate dementia: Monitor closely, supportive care # h/o Glaucoma: We will need to confirm patient's home medications # Hypertension: PRN hydralazine, resume oral medications when clinically indicated # DVT GI prophylaxis: SCDs, Protonix IV Result Diagram: 04/16/19 0505 04/16/19 0505 Subjective 24 Hr Interval Summary Free Text/Dictation Patient awake, doing well. Passed bedside swallow eval Exam/Review of Systems Exam Vitals Vital Signs Date Temp Pulse Resp B/P (MAP) Pulse Ox O2 O2 Flow FiO2 Time Delivery Rate 04/16/19 86 12:09 04/16/19 161/72 12:01 (101) 04/16/19 97.6 20 98 Room Air 11:13 Intake and Output 04/15/19 04/15/19 04/16/19 1515:00 23:00 07:00 IntakeIntake Total 150 ml 0 ml OutputOutput Total 750 ml 800 ml BalanceBalance 150 ml -750 ml -800 ml Exam General: Currently lying in bed, awake and alert. HEENT: Atraumatic, normocephalic. The pupils are equal, round and reactive. Extraocular motor are intact, dry mucous membranes Neck: Supple with full range of motion. No rigidity or meningismus Chest: Nontender Lungs: Clear to auscultation bilaterally no crackles rales or wheezing Heart: Normal S1-S2, Regular rhythm and rate. No murmur, S3, or S4 Abdomen: Soft , nontender, slightly distended , bowel sounds are present. No guarding no rebound tenderness , Extremities: Normal to inspection, no edema no cyanosis Results Results 24hrs Laboratory Tests Test 04/15/19 17:35 04/15/19 21:22 04/16/19 00:52 04/16/19 05:04 Bedside Glucose 167 154 163 180 Test 04/16/19 05:05 04/16/19 08:52 04/16/19 13:03 White Blood Count 4.6 #L Red Blood Count 2.89 L Hemoglobin 8.6 L Hematocrit 25.7 L Mean Corpuscular 88.9 Volume Mean Corpuscular 29.8 Hemoglobin Mean Corpuscular 33.5 Hemoglobin Concent Red Cell 15.3 H Distribution Width Platelet Count 58 L Mean Platelet Volume 11.1 H Immature 0.400 Granulocytes % Neutrophils % 67.3 Lymphocytes % 21.2 Monocytes % 9.4 Eosinophils % 1.3 Basophils % 0.4 Nucleated Red Blood 0.0 Cells % Immature 0.020 Granulocytes # Neutrophils # 3.1 Lymphocytes # 1.0 Monocytes # 0.4 Eosinophils # 0.1 Basophils # 0.0 Nucleated Red Blood 0.0 Cells # Sodium Level 150 H Potassium Level 3.7 Chloride Level 115 H Carbon Dioxide Level 23 Anion Gap 12 Blood Urea Nitrogen 18 Creatinine 0.79 Est Glomerular > 60 Filtrat Rate mL/min Glucose Level 180 # Hemoglobin A1c 5.5 Calcium Level 9.9 Magnesium Level 1.9 Total Bilirubin 1.8 H Direct Bilirubin 0.00 Indirect Bilirubin 1.8 H Aspartate Amino 56 H Transf (AST/SGOT) Alanine 38 Aminotransferase (AL T/SGPT) Alkaline Phosphatase 94 Ammonia 39 #H Total Protein 6.3 Albumin 3.3 Globulin 3.00 Albumin/Globulin 1.10 Ratio Triglycerides Level 81 Cholesterol Level 138 LDL Cholesterol, 79 Calculated HDL Cholesterol 43 Cholesterol/HDL 3.2 Ratio Thyroid Stimulating 1.170 Hormone (TSH) Bedside Glucose 213 209 Medications Medication Current Medications IV Flush (NS 3 ml) 3 ml PER PROTOCOL IV ; Start 04/15/19 at 06:00 Ondansetron HCl (Zofran Inj) 4 mg Q6H PRN IV NAUSEA/VOMITING; Start 04/15/19 at 06:00 Acetaminophen (Tylenol Supp) 650 mg Q6H PRN [place] .PAIN 1-3 OR TEMP; Start at 06:00 Docusate Sodium (Colace) 100 mg Q12H PRN PO .CONSTIPATION; Start 04/15/19 at 06:00 Bisacodyl (Dulcolax) 5 mg DAILY PRN PO .CONSTIPATION; Start 04/15/19 at 06:00 Lactulose (Enulose) 20 gm Q6 PO Last administered on 04/16/19at 12:21; Admin Dose 20 GM; Start 04/15/19 at 06:00 Ceftriaxone Sodium 50 ml @ 100 mls/hr Q24H IVPB Last administered on 04/16/19at 06:55; Admin Dose 100 MLS/HR; Start 04/15/19 at 07:00 Diagnostic Test (Pha) (Accu-Chek) 1 ea 02 XX ; Start 04/16/19 at 02:00 Insulin Aspart (Novolog Insulin Pen) NOVOLOG *MILD* ALGORI... Q4 SC Last administered on 04/16/19at 13:10; Admin Dose 2 UNIT; Start 04/15/19 at 09:00 Rifaximin (Xifaxan) 550 mg DAILY PO Last administered on 04/16/19at 09:14; Admin Dose 550 MG; Start 04/15/19 at 09:00 Hydralazine HCl (Apresoline) 10 mg Q4H PRN IV ELEVATED BLOOD PRESSURE; Start 04/15/19 at 07:00 Miscellaneous Information 1 ea NOTE XX ; Start 04/15/19 at 07:30 Glucose (Glutose) 15 gm Q15M PRN PO DECREASED GLUCOSE; Start 04/15/19 at 07:30 Glucose (Glutose) 22.5 gm Q15M PRN PO DECREASED GLUCOSE; Start 04/15/19 at 07:30 Dextrose (D50w Syringe) 25 ml Q15M PRN IV DECREASED GLUCOSE; Start 04/15/19 at 07:30 Dextrose (D50w Syringe) 50 ml Q15M PRN IV DECREASED GLUCOSE; Start 04/15/19 at 07:30 Glucagon (Glucagen) 1 mg Q15M PRN IM DECREASED GLUCOSE; Start 04/15/19 at 07:30 Glucose (Glutose) 15 gm Q15M PRN BUCCAL DECREASED GLUCOSE; Start 04/15/19 at 07:30 JERAMY FERRO MD Apr 16, 2019 15:39
[2019-04-17 00:17] VITALS: BP 139/68; PULSE 85; RESP 17
[2019-04-17] MEDS: INSULIN ASPART [NOVOLOG] 3 ML PEN SC SCH (01:00)
[2019-04-17] MEDS: LACTULOSE 30ML CUP PO SCH ×6 (02:36→23:02)
[2019-04-17 04:31] VITALS: BP 138/65; PULSE 83; RESP 17
[2019-04-17] MEDS: CEFTRIAXONE 1 GM/50 ML (PMX) 50 ML IVPB SCH (05:39)
[2019-04-17] MEDS ORDERED: INSULIN ASPART [NOVOLOG] 3 ML PEN SC SCH (07:00)
[2019-04-17 07:07] VITALS: BP 115/56; PULSE 79; RESP 18
[2019-04-17] MEDS: ACCU-CHEK XX SCH ×4 (07:35→21:03)
[2019-04-17] MEDS: RIFAXIMIN 550 MG TAB PO SCH (09:19)
[2019-04-17] MEDS: Insulin NOVOLOG SS MILD Algorithm (SS with meals and bedtime) SC SCH ×4 (09:27→20:54)
[2019-04-17 11:05] VITALS: BP 134/62; PULSE 83; RESP 18
[2019-04-17] MEDS: metFORMIN 500 MG TAB PO SCH ×2 (11:55→17:28)
[2019-04-17 15:00] VITALS: BP 138/61; PULSE 88; RESP 19
--- NOTE | 2019-04-17 15:21 | PN ---
Date/Time of Note Date/Time of Note DATE: 04/17/19 TIME: 15:20 Assessment/Plan VTE Prophylaxis Risk score (from Ns)>0 risk: 4 SCD applied (from [facility] [place] Yes Pharmacological prophylaxis: NA/contraindicated Pharm contraindication: low risk/ambulating Lines/Catheters IV [facility] Type (from [facility]): Peripheral IV Urinary Cath still in place: No Assessment/Plan Assessment/Plan 69-year woman with Alzheimer's and cirrhosis with hepatic encephalopathy admit kalyn for severe lethargy. # acute on chronic encephalopathy: - multifactorial secondary to underlying UTI, hepatic encephalopathy. - Ammonia level significantly elevated at 254. Patient also has evidence of possible UTI on urinalysis. - NG tube out. Continue lactulose. # DM - hemoglobin A1c was 5.3 on 01/24. Given that she is n.p.o., will monitor hypoglycemic episodes with insulin sliding scale. # Lactic Acidosis : - lactic acid 3.1. Likely secondary to dehydration, and metformin. Will hold metformin. Avoid excessive crystalloids due to cirrhosis. # Nonalcoholic cirrhosis: - Elevated ammonia level 254. Will continue rifaximin and lactulose at the current time. Proceed with initiating other home medications once indicated # Moderate dementia: Monitor closely, supportive care # h/o Glaucoma: We will need to confirm patient's home medications # Hypertension: PRN hydralazine, resume oral medications when clinically indicated # DVT GI prophylaxis: SCDs, Protonix IV Dispo: Anticipate discharge tomorrow. Result Diagram: 04/17/19 0501 04/17/19 0501 Subjective 24 Hr Interval Summary Free Text/Dictation No acute overnight events. Patient sitting up in bed eating lunch, awake and alert, answering questions appropriately. Spoke to patient's daughter Nidhi. She agrees patient's mental status is back to baseline. Exam/Review of Systems Exam Vitals Vital Signs Date Temp Pulse Resp B/P (MAP) Pulse Ox O2 O2 Flow FiO2 Time Delivery Rate 04/17/19 98.6 88 19 138/61 98 Room Air 15:00 (86) Intake and Output 04/16/19 04/16/19 04/17/19 1515:00 23:00 07:00 IntakeIntake Total 50 ml 450 ml OutputOutput Total 300 ml BalanceBalance 50 ml -300 ml 450 ml Exam General: Currently lying in bed, awake and alert. HEENT: Atraumatic, normocephalic. The pupils are equal, round and reactive. Extraocular motor are intact, dry mucous membranes Neck: Supple with full range of motion. No rigidity or meningismus Chest: Nontender Lungs: Clear to auscultation bilaterally no crackles rales or wheezing Heart: Normal S1-S2, Regular rhythm and rate. No murmur, S3, or S4 Abdomen: Soft , nontender, slightly distended , bowel sounds are present. No guarding no rebound tenderness , Extremities: Normal to inspection, no edema no cyanosis Results Results 24hrs Laboratory Tests Test 04/16/19 17:11 04/16/19 20:48 04/17/19 02:48 04/17/19 05:01 Bedside Glucose 293 H 259 H 177 White Blood Count 4.1 L Red Blood Count 2.41 L Hemoglobin 7.2 L Hematocrit 22.5 L Mean Corpuscular 93.4 Volume Mean Corpuscular 29.9 Hemoglobin Mean Corpuscular 32.0 Hemoglobin Concent Red Cell 15.4 H Distribution Width Platelet Count 49 L Mean Platelet Volume 11.3 H Immature 0.500 H Granulocytes % Neutrophils % 55.3 Lymphocytes % 28.7 Monocytes % 11.3 H Eosinophils % 3.2 Basophils % 1.0 Nucleated Red Blood 0.0 Cells % Immature 0.020 Granulocytes # Neutrophils # 2.3 Lymphocytes # 1.2 Monocytes # 0.5 Eosinophils # 0.1 Basophils # 0.0 Nucleated Red Blood 0.0 Cells # Sodium Level 145 H Potassium Level 3.7 Chloride Level 114 H Carbon Dioxide Level 24 Anion Gap 7 Blood Urea Nitrogen 16 Creatinine 0.77 Est Glomerular > 60 Filtrat Rate mL/min Glucose Level 198 Calcium Level 9.5 Phosphorus Level 4.4 Magnesium Level 2.0 Test 04/17/19 07:34 04/17/19 11:38 Bedside Glucose 219 263 H Medications Medication Current Medications IV Flush (NS 3 ml) 3 ml PER PROTOCOL IV ; Start 04/15/19 at 06:00 Ondansetron HCl (Zofran Inj) 4 mg Q6H PRN IV NAUSEA/VOMITING; Start 04/15/19 at 06:00 Acetaminophen (Tylenol Supp) 650 mg Q6H PRN [place] .PAIN 1-3 OR TEMP; Start 04/15/19 at 06:00 Docusate Sodium (Colace) 100 mg Q12H PRN PO .CONSTIPATION; Start 04/15/19 at 06:00 Bisacodyl (Dulcolax) 5 mg DAILY PRN PO .CONSTIPATION; Start 04/15/19 at 06:00 Lactulose (Enulose) 20 gm Q6 PO Last administered on 04/16/19at 17:26; Admin Dose 20 GM; Start 04/15/19 at 06:00 Ceftriaxone Sodium 50 ml @ 100 mls/hr Q24H IVPB Last administered on 04/17/19at 05:39; Admin Dose 100 MLS/HR; Start 04/15/19 at 07:00 Rifaximin (Xifaxan) 550 mg DAILY PO Last administered on 04/17/19at 09:19; Admin Dose 550 MG; Start 04/15/19 at 09:00 Hydralazine HCl (Apresoline) 10 mg Q4H PRN IV ELEVATED BLOOD PRESSURE; Start 04/15/19 at 07:00 Miscellaneous Information 1 ea NOTE XX ; Start 04/15/19 at 07:30 Glucose (Glutose) 15 gm Q15M PRN PO DECREASED GLUCOSE; Start 04/15/19 at 07:30 Glucose (Glutose) 22.5 gm Q15M PRN PO DECREASED GLUCOSE; Start 04/15/19 at 07:30 Dextrose (D50w Syringe) 25 ml Q15M PRN IV DECREASED GLUCOSE; Start 04/15/19 at 07:30 Dextrose (D50w Syringe) 50 ml Q15M PRN IV DECREASED GLUCOSE; Start 04/15/19 at 07:30 Glucagon (Glucagen) 1 mg Q15M PRN IM DECREASED GLUCOSE; Start 04/15/19 at 07:30 Glucose (Glutose) 15 gm Q15M PRN BUCCAL DECREASED GLUCOSE; Start 04/15/19 at 07:30 Diagnostic Test (Pha) (Accu-Chek) 1 ea AC MEALS AND BEDTIME XX Last administered on 04/17/19at 11:42; Admin Dose 1 EA; Start 04/17/19 at 07:00 Insulin Aspart (Novolog Insulin Pen) (Adult SC Insulin - Mild Algorithm)... AC MEALS AND BEDTIME SC Last administered on 04/17/19at 11:42; Admin Dose 4 UNIT; Start 04/17/19 at 07:00 Diagnostic Test (Pha) (Accu-Chek) 1 ea 02 XX ; Start 04/18/19 at 02:00 Metformin HCl (Glucophage) 500 mg BID WITH MEALS PO Last administered on 04/17/19at 11:55; Admin Dose 500 MG; Start 04/17/19 at 12:00 JERAMY FERRO MD Apr 17, 2019 15:21
[2019-04-17 19:52] VITALS: BP 108/51; PULSE 94; RESP 18
[2019-04-18] VITALS: BP 129/56; PULSE 92; RESP 18
[2019-04-18] MEDS ORDERED: ACCUCHECK AT 2AM (Patients on SS coverage) XX SCH (02:00)
[2019-04-18 04:00] VITALS: BP 114/53; PULSE 92; RESP 18
[2019-04-18] MEDS: LACTULOSE 30ML CUP PO SCH ×2 (05:07→11:42)
[2019-04-18] MEDS: CEFTRIAXONE 1 GM/50 ML (PMX) 50 ML IVPB SCH (06:00)
[2019-04-18 07:22] VITALS: BP 120/98; PULSE 91; RESP 22
[2019-04-18] MEDS: ACCU-CHEK XX SCH ×2 (07:39→11:42)
[2019-04-18] MEDS: metFORMIN 500 MG TAB PO SCH (08:18)
[2019-04-18] MEDS: RIFAXIMIN 550 MG TAB PO SCH (08:18)
[2019-04-18] MEDS: Insulin NOVOLOG SS MILD Algorithm (SS with meals and bedtime) SC SCH ×2 (08:23→11:53)
[2019-04-18 11:12] VITALS: BP 118/88; PULSE 96; RESP 20
--- NOTE | 2019-04-18 11:55 | PDOCDIS ---
Discharge Instructions DIAGNOSIS Discharge Diagnosis Hepatic encephalopathy CONDITION [id number] Patient Condition: [id number] Fair HOME CARE INSTRUCTIONS: [id number] Diet Instructions: [id number] Reduced Sodium ACTIVITY: [id number] Activity Restrictions: [id number] No Restrictions FOLLOW UP/APPOINTMENTS Follow-up Plan 1. Continue to take all medications as prescribed. 2. Lactulose may cause loose bowel movements. To prevent hepatic encephalopathy you should try to have 3-4 bowel movements per day. If you have much more than this you can temporarily reduce the frequency of your lactulose. 3. See your primary care doctor in 1-2 weeks. JERAMY FERRO MD Apr 18, 2019 11:55
[2019-04-18 15:03] VITALS: BP 121/62; PULSE 94; RESP 18
--- NOTE | 2019-04-18 17:43 | DS ---
Date/Time of Note Date/Time of Note DATE: 04/18/19 TIME: 17:42 Discharge Summary Admission/Discharge Info Admit Date/Time Apr 15, 2019 at 05:31 Discharge Date/Time Apr 18, 2019 at 16:20 Discharge Diagnosis Hepatic encephalopathy Patient Condition: Fair Hx of Present Illness Chief complaint: Altered, nonverbal The following history was obtained from the nursing documentation as well as from the previous chart as patient was unable to give a history given patient's altered mental status. This is a 69-year-old female with a past medical history of moderate dementia, nonalcoholic cirrhosis, thrombocytopenia, chronic shortness of breath on exertion, diabetes mellitus, glaucoma who presented to the emergency department from home with symptoms of increasing altered status x1 today. Patient apparently has per the family had worsening symptoms over the last hour prior to being sent to the ER. Patient was observed in the emergency department to be nonverbal with only gurgling noises and moaning. The patient was withdrawing to pain. Patient does have a history of Alzheimer's and does normatively ambulate with a walker. His blood sugar per EMS was 80. Patient's ammonia level in the emergency department was noted to be 254. Upon my examination of the patient at the bedside patient does withdraw to pain and she does track with her eyes, however she is otherwise as described above. Allergies: Aspirin, morphine Medications: See DEC Hospital Course NG tube was placed and lactulose was started. Soon after the patient began having bowel movements and recovered her mental status. She was able to ambulate with PT, tolerate diet. Her daughter confirmed the patient is mentally at baseline. She will be discharged home to continue current meds. Home Meds Active Scripts Salmeterol Xinaf/Fluticasone* (Advair*) 250-50 Diskus Inhaler, 1 INH INHALATION BID, #1 INHALER Prov:NILTON CHAMBERS 02/02/19 Lactulose* (Lactulose*) 20 Gm/30 Ml Solution, 20 GM PO Q6 for 30 Days Prov:NILTON CHAMBERS 02/02/19 Amlodipine Besylate* (Amlodipine Besylate*) 5 Mg Tablet, 5 MG PO DAILY for 30 Days, #30 TAB Prov:NILTON CHAMBERS 02/02/19 Reported Medications Nepafenac (ILEVRO) 1.7 Ml Drops.susp, 1.7 ML OP 01/24/19 Besifloxacin Hydrochloride (Besivance) 5 Ml Drops.susp, 5 ML OP 01/24/19 Difluprednate (Durezol) 5 Ml Drops, 5 ML OP, BOTTLE 01/24/19 Insulin Aspart* (Novolog Insulin Pen*) 100 Unit/Ml Soln, 12 UNIT SC, EA THE DAUGHTER UNABLE TO VERIFIED FREQUENCY 01/24/19 Furosemide* (Furosemide*) 20 Mg Tablet, 20 MG PO DAILY, #60 TAB 01/24/19 Spironolactone* (Aldactone*) 50 Mg Tablet, 50 MG PO DAILY, #30 TAB 01/24/19 Metformin Hcl* (Metformin Hcl*) 1,000 Mg Tablet, 1000 MG PO WITH BREAKFAST, #30 TAB 01/24/19 Rifaximin* (Xifaxan*) 550 Mg Tablet, 550 MG PO DAILY, TAB 01/24/19 Pantoprazole* (Pantoprazole*) 40 Mg Tablet.dr, 40 MG PO AC BREAKFAST, TAB 01/24/19 Meclizine Hcl* (Meclizine Hcl*) 25 Mg Tablet, 25 MG PO DAILY PRN for DIZZINESS, TAB 01/24/19 Ferrous Sulfate* (Ferrous Sulfate*) 325 Mg Tabec, 325 MG PO DAILY, TAB 01/24/19 Follow-up Plan 1. Continue to take all medications as prescribed. 2. Lactulose may cause loose bowel movements. To prevent hepatic encephalopathy you should try to have 3-4 bowel movements per day. If you have much more than this you can temporarily reduce the frequency of your lactulose. 3. See your primary care doctor in 1-2 weeks. Primary Care Provider Not On Staff Doctor Time spent on discharge: > 30 minutes Pending Labs Laboratory Tests Test 04/17/19 20:06 04/18/19 01:25 04/18/19 05:27 04/18/19 11:41 Bedside 267 227 242 Glucose mg/dL (70-220) mg/dL (70-220) mg/dL (70-220) White Blood 8.7 Count 10^3/ul (4.8-1 0.8) Red Blood 2.73 Count 10^6/ul (4.20- 5.40) Hemoglobin 8.2 g/dl (12.0-16. 0) Hematocrit 23.6 % (37.0-47.0) Mean 86.4 Corpuscular fl (82.0-101.0 Volume ) Mean 30.0 Corpuscular pg (29.0-33.0) Hemoglobin Mean 34.7 Corpuscular g/dl (32.0-37. Hemoglobin Conc 0) ent Red Cell 15.2 Distribution % (11.5-14.5) Width Platelet Count 65 10^3/UL (140-4 15) Mean Platelet 10.8 Volume fl (7.4-10.4) Immature 0.300 Granulocytes % % (0.001-0.429 ) Neutrophils % 67.5 % (39.0-77.0) Lymphocytes % 22.2 % (15.0-51.0) Monocytes % 7.7 % (0.0-11.0) Eosinophils % 1.8 % (0.0-7.0) Basophils % 0.5 % (0.0-2.0) Nucleated Red 0.0 Blood Cells % /100WBC (0.0-0 .0) Immature 0.030 Granulocytes # 10^3/ul (0.0-0 .031) Neutrophils # 5.9 10^3/ul (1.6-7 .5) Lymphocytes # 1.9 10^3/ul (0.8-2 .9) Monocytes # 0.7 10^3/ul (0.3-0 .9) Eosinophils # 0.2 10^3/ul (0.0-0 .5) Basophils # 0.0 10^3/ul (0.0-0 .1) Nucleated Red 0.0 Blood Cells # 10^3/ul (0.0-0 .0) Sodium Level 137 mmol/L (135-14 4) Potassium 4.2 Level mmol/L (3.5-5. 1) Chloride Level 107 mmol/L (97-110 ) Carbon Dioxide 20 Level mmol/L (21-31) Anion Gap 10 (5-13) Blood Urea 18 Nitrogen mg/dl (7-20) Creatinine 0.86 mg/dl (0.44-1. 00) Est Glomerular > 60 Filtrat mL/min (>60) Rate mL/min Glucose Level 212 mg/dl (70-220) Calcium Level 9.6 mg/dl (8.4-10. 2) Phosphorus 4.0 Level mg/dl (2.5-4.9 ) Magnesium 1.8 Level mg/dl (1.7-2.5 ) JERAMY FERRO MD Apr 18, 2019 17:43
== END 2019-04-18 16:20 | disposition home or self-care (01) | DRG 441 ==
LOC: E/R 03:57 → 6WM 05:31
PROVIDERS: ADMIT Family Medicine; ATTEND Internal Medicine
DX: K72.90 Hepatic failure, unspecified without coma (principal); R65.11 Systemic inflammatory response syndrome (SIRS) of non-infectious origin with acute organ dysfunction; N39.0 Urinary tract infection, site not specified; E87.2 Acidosis; D61.818 Other pancytopenia; D69.6 Thrombocytopenia, unspecified; G30.9 Alzheimer's disease, unspecified; F02.80 Dementia in other diseases classified elsewhere, unspecified severity, without behavioral disturbance, psychotic disturbance, mood disturbance, and anxiety; K74.60 Unspecified cirrhosis of liver; E86.0 Dehydration; H40.9 Unspecified glaucoma; I10 Essential (primary) hypertension; E11.9 Type 2 diabetes mellitus without complications; Z79.4 Long term (current) use of insulin
CPT/HCPCS: 70450; 71045; 80048; 80053; 80061; 80307; 81001; 82140; 82962; 83036; 83605; 83735; 84100; 84443; 85025; 92526; 92610; 93005; 97116; 97164; 97167; J0696; J1815; J7030; J7040

== ENCOUNTER 2019-08-12 14:04 | Inpatient (IN) | payer MEDICARE, OTHER ==
[~2019-08-12] VITALS: Ht 160 cm; Wt 70.8 kg
[~2019-08-12 14:04] MED LIST changes: +INSU100I27 SQ; +LINA5TAB PO; +ONDA4TAB8 PO; +SULF1TAB31 PO
[2019-08-12] MEDS ORDERED: SOD CHLORIDE 0.9% 1,000 ML IV STA (14:10)
[2019-08-12] MEDS ORDERED: CEFEPIME 2GM/50 ML (PMX) 50 ML IVPB STA (14:14)
[2019-08-12] MEDS ORDERED: ACETAMINOPHEN 650 MG SUPP PR STA (14:14)
[2019-08-12] MEDS ORDERED: SODIUM CHLORIDE 0.9% 1L BAG IV* STA (14:26)
[2019-08-12] MEDS ORDERED: VANCOMYCIN 1 GM (PMX) 250 ML IVPB ONE (14:30)
[2019-08-12] MEDS ORDERED: ACCU-CHEK XX ONE ×2 (16:00→22:30)
[2019-08-12] MEDS ORDERED: ONDANSETRON 4 MG INJ IV PRN ×2 (16:00→17:00)
[2019-08-12] MEDS ORDERED: ACETAMINOPHEN 325 MG TAB PO PRN (16:00)
[2019-08-12] MEDS ORDERED: INSULIN LISPRO 100 UNIT/ML VIAL SC ONE (16:00)
[2019-08-12] MEDS ORDERED: LIDOCAINE 1% (MPF) 5 ML VIAL ONE (16:19)
[2019-08-12] MEDS ORDERED: GLUCAGON 1 MG INJ IM PRN (16:30)
[2019-08-12] MEDS ORDERED: DEXTROSE 50% 50 ML SYRINGE IV PRN ×2 (16:30)
[2019-08-12] MEDS ORDERED: GLUCOSE GEL 15 GRAM TUBE PO PRN ×2 (16:30)
[2019-08-12] MEDS ORDERED: INSULIN ASPART [NOVOLOG] 3 ML PEN SC ONE ×2 (16:30→22:30)
[2019-08-12] MEDS ORDERED: GLUCOSE GEL 15 GRAM TUBE BUCCAL PRN (16:30)
[2019-08-12] MEDS ORDERED: NACL 0.9% 3 ML SYG IV SCH (17:00)
[2019-08-12] MEDS ORDERED: HYDROCODONE/APAP (5/325) TAB PO PRN (17:00)
[2019-08-12] MEDS ORDERED: PIPER-TAZO 3.375 GM IV (PMX) 100 ML IVPB SCH (18:00)
[2019-08-12] MEDS: LACTULOSE 30ML CUP PO SCH (18:29)
[2019-08-12] MEDS: PIPER-TAZO 2.25 GM/NS 50 ML IVPB SCH (18:29)
[2019-08-12 18:30] VITALS: Ht 160 cm; Wt 70.8 kg
[2019-08-12] MEDS: INSULIN ASPART [NOVOLOG] 3 ML PEN SC SCH ×2 (18:55→23:22)
[2019-08-12 19:53] VITALS: BP 113/53; PULSE 75; RESP 20
[2019-08-12] MEDS ORDERED: INSULIN GLARGINE [LANTus] (100 UNITS/ML) SYG SC SCH (20:00)
[2019-08-12] MEDS ORDERED: INSULIN GLARGINE [LANTus] (100 UNITS/ML) SYG SC ONE ×2 (22:30)
[2019-08-13] VITALS: BP 138/79; PULSE 101; RESP 20
[2019-08-13] MEDS: PIPER-TAZO 2.25 GM/NS 50 ML IVPB SCH ×4 (00:49→17:14)
[2019-08-13] MEDS: LACTULOSE 30ML CUP PO SCH ×4 (00:49→17:14)
[2019-08-13] MEDS: ACCU-CHEK XX SCH (02:00)
[2019-08-13 04:00] VITALS: BP 109/79; PULSE 84; RESP 20
[2019-08-13] MEDS: PANTOPRAZOLE (EC) 40 MG TAB PO SCH (06:39)
[2019-08-13 07:13] VITALS: BP 123/58; PULSE 77; RESP 18
[2019-08-13] MEDS: ALBUMIN HUMAN 25% 100 ML IV SCH ×2 (07:56→15:18)
[2019-08-13] MEDS: INSULIN ASPART [NOVOLOG] 3 ML PEN SC SCH ×6 (08:39→21:17)
[2019-08-13] MEDS: FERROUS SULFATE (EC) 325 MG TAB PO SCH (08:45)
[2019-08-13] MEDS: AMLODIPINE 5 MG TAB PO SCH (08:45)
[2019-08-13] MEDS ORDERED: SPIRONOLACTONE 50 MG TAB PO SCH (09:00)
[2019-08-13] MEDS ORDERED: FUROSEMIDE 20 MG TAB PO SCH (09:00)
[2019-08-13] MEDS ORDERED: RIFAXIMIN 550 MG TAB PO SCH (09:00)
[2019-08-13 11:20] VITALS: BP 122/58; PULSE 77; RESP 18
[2019-08-13 15:30] VITALS: BP 125/56; PULSE 83; RESP 18
[2019-08-13] MEDS ORDERED: INSULIN GLARGINE [LANTus] (100 UNITS/ML) SYG SC SCH (20:00)
[2019-08-13 20:56] VITALS: BP 113/55; PULSE 82; RESP 16
[2019-08-13] MEDS: ACETAMINOPHEN 325 MG TAB PO PRN (21:07)
[2019-08-13] MEDS: RIFAXIMIN 550 MG TAB PO SCH (21:07)
[2019-08-14 00:16] VITALS: BP 119/56; PULSE 82; RESP 18
[2019-08-14] MEDS: ALBUMIN HUMAN 25% 100 ML IV SCH (00:23)
[2019-08-14] MEDS: LACTULOSE 30ML CUP PO SCH ×4 (00:24→17:13)
[2019-08-14] MEDS: PIPER-TAZO 2.25 GM/NS 50 ML IVPB SCH ×2 (00:24→06:46)
[2019-08-14] MEDS: ACCU-CHEK XX SCH (01:41)
[2019-08-14 04:39] VITALS: BP 132/63; PULSE 83; RESP 18
[2019-08-14] MEDS: PANTOPRAZOLE (EC) 40 MG TAB PO SCH (06:51)
[2019-08-14] MEDS ORDERED: TOBRAMYCIN IV PER PHARMACY XX SCH (07:00)
[2019-08-14 07:10] VITALS: BP 127/60; PULSE 86; RESP 20
[2019-08-14] MEDS: CEFTRIAXONE 1 GM/50 ML (PMX) 50 ML IVPB SCH (08:21)
[2019-08-14] MEDS ORDERED: TOBRAMYCIN 300 MG in SOD CHLORIDE 0.9% 100 ML IVPB SCH (09:30)
[2019-08-14] MEDS ORDERED: GENTAMICIN 300 MG in DEXTROSE 5% 100 ML IVPB SCH (09:30)
[2019-08-14] MEDS ORDERED: FLU VACC QS 2019-20 (6MOS UP) 0.5 ML SYG IM* ONE (10:00)
[2019-08-14] MEDS: RIFAXIMIN 550 MG TAB PO SCH ×2 (10:15→20:59)
[2019-08-14] MEDS: AMLODIPINE 5 MG TAB PO SCH (10:16)
[2019-08-14] MEDS: FERROUS SULFATE (EC) 325 MG TAB PO SCH (10:17)
[2019-08-14] MEDS: INSULIN ASPART [NOVOLOG] 3 ML PEN SC SCH ×7 (10:46→21:11)
[2019-08-14 11:34] VITALS: BP 129/60; PULSE 85; RESP 20
[2019-08-14] MEDS ORDERED: LORAZEPAM 0.5 MG TAB PO PRN (14:00)
[2019-08-14] MEDS ORDERED: ALBUTEROL/IPRATROPIUM (NEB) 3 ML AMP HHN PRN (14:00)
[2019-08-14] MEDS ORDERED: FUROSEMIDE 40 MG INJ IV ONE (15:30)
[2019-08-14 15:44] VITALS: BP 122/59; PULSE 98; RESP 20
[2019-08-14] MEDS ORDERED: INSULIN GLARGINE [LANTus] (100 UNITS/ML) SYG SC SCH (20:00)
[2019-08-14 20:42] VITALS: BP 143/65; PULSE 89; RESP 20
[2019-08-14] MEDS: ACETAMINOPHEN 325 MG TAB PO PRN (20:59)
[2019-08-15 00:27] VITALS: BP 115/51; PULSE 81; RESP 18
[2019-08-15] MEDS: ACCU-CHEK XX SCH (02:00)
[2019-08-15 04:39] VITALS: BP 106/52; PULSE 69; RESP 16
[2019-08-15] MEDS: LACTULOSE 30ML CUP PO SCH ×4 (06:00→17:11)
[2019-08-15] MEDS: PANTOPRAZOLE (EC) 40 MG TAB PO SCH (06:45)
[2019-08-15] MEDS: CEFTRIAXONE 1 GM/50 ML (PMX) 50 ML IVPB SCH (06:45)
[2019-08-15 07:55] VITALS: BP 153/67; PULSE 96; RESP 22
[2019-08-15] MEDS: INSULIN ASPART [NOVOLOG] 3 ML PEN SC SCH ×6 (08:06→20:45)
[2019-08-15] MEDS ORDERED: FUROSEMIDE 20 MG INJ IV ONE (09:30)
[2019-08-15] MEDS: FUROSEMIDE 20 MG TAB PO SCH (09:32)
[2019-08-15] MEDS: RIFAXIMIN 550 MG TAB PO SCH ×2 (09:32→20:35)
[2019-08-15] MEDS: FERROUS SULFATE (EC) 325 MG TAB PO SCH (09:32)
[2019-08-15] MEDS: AMLODIPINE 5 MG TAB PO SCH (09:32)
[2019-08-15] MEDS: MEROPENEM 1 GM/50ML(PMX) 50 ML IVPB SCH ×2 (09:33→20:35)
[2019-08-15 11:06] VITALS: BP 125/58; PULSE 92; RESP 20
[2019-08-15 15:40] VITALS: BP 140/58; PULSE 92; RESP 20
[2019-08-15] MEDS ORDERED: INSULIN ASPART [NOVOLOG] 3 ML PEN SC SCH (18:00)
[2019-08-15 19:19] VITALS: BP 144/65; PULSE 96; RESP 18
[2019-08-15] MEDS ORDERED: INSULIN GLARGINE [LANTus] (100 UNITS/ML) SYG SC SCH (20:00)
[2019-08-15] MEDS: ACETAMINOPHEN 325 MG TAB PO PRN (20:45)
[2019-08-16] VITALS (7 sets, daily range): BP systolic 117–140; BP diastolic 54–65; PULSE 66–96; RESP 20–22
[2019-08-16] MEDS: ACCU-CHEK XX SCH (01:16)
[2019-08-16] MEDS: LACTULOSE 30ML CUP PO SCH ×6 (01:17→23:56)
[2019-08-16] MEDS: PANTOPRAZOLE (EC) 40 MG TAB PO SCH (06:58)
[2019-08-16] MEDS ORDERED: POTASSIUM CHLORIDE 20 MEQ POWDER FOR ORAL SOLN PO ONE (09:00)
[2019-08-16] MEDS: MEROPENEM 1 GM/50ML(PMX) 50 ML IVPB SCH ×2 (09:16→20:47)
[2019-08-16] MEDS: FERROUS SULFATE (EC) 325 MG TAB PO SCH (09:16)
[2019-08-16] MEDS: FUROSEMIDE 20 MG TAB PO SCH (09:18)
[2019-08-16] MEDS: AMLODIPINE 5 MG TAB PO SCH (09:19)
[2019-08-16] MEDS: RIFAXIMIN 550 MG TAB PO SCH ×2 (09:19→20:47)
[2019-08-16] MEDS: INSULIN ASPART [NOVOLOG] 3 ML PEN SC SCH ×6 (09:22→20:47)
[2019-08-16] MEDS ORDERED: INSULIN GLARGINE [LANTus] (100 UNITS/ML) SYG SC ONE (10:00)
[2019-08-16] MEDS: INSULIN GLARGINE [LANTus] (100 UNITS/ML) SYG SC SCH (20:47)
[2019-08-17] MEDS ORDERED: ACCU-CHEK XX SCH (02:00)
[2019-08-17] MEDS: ACCU-CHEK XX SCH (02:09)
[2019-08-17 04:00] VITALS: BP 115/53; PULSE 83; RESP 18
[2019-08-17] MEDS: PANTOPRAZOLE (EC) 40 MG TAB PO SCH (06:00)
[2019-08-17] MEDS: LACTULOSE 30ML CUP PO SCH ×3 (06:00→17:07)
[2019-08-17] MEDS ORDERED: POTASSIUM CHLORIDE (SR) 20 MEQ TAB PO STA (07:54)
[2019-08-17 08:00] VITALS: BP 116/53; PULSE 86; RESP 20
[2019-08-17] MEDS ORDERED: FUROSEMIDE 20 MG INJ IV ONE (08:00)
[2019-08-17] MEDS: INSULIN ASPART [NOVOLOG] 3 ML PEN SC SCH ×7 (08:00→20:36)
[2019-08-17] MEDS: RIFAXIMIN 550 MG TAB PO SCH ×2 (08:07→20:33)
[2019-08-17] MEDS: FERROUS SULFATE (EC) 325 MG TAB PO SCH (08:07)
[2019-08-17] MEDS: AMLODIPINE 5 MG TAB PO SCH (08:08)
[2019-08-17] MEDS: NEUTRA-PHOS 250 MG PACKET PO SCH ×2 (08:08→20:33)
[2019-08-17] MEDS: FUROSEMIDE 20 MG TAB PO SCH (08:08)
[2019-08-17] MEDS: TRIMETHOPRIM/SULFAMETHOX (DS) TAB PO SCH ×2 (08:09→20:32)
[2019-08-17] MEDS ORDERED: SOD CHLORIDE 0.9% 250 ML IV* ONE (09:24)
[2019-08-17 11:24] VITALS: BP 105/61; PULSE 86; RESP 20
[2019-08-17 15:34] VITALS: BP 131/61; PULSE 84; RESP 22
[2019-08-17 20:05] VITALS: BP 107/49; PULSE 83; RESP 18
[2019-08-17] MEDS: INSULIN GLARGINE [LANTus] (100 UNITS/ML) SYG SC SCH (20:48)
[2019-08-17 23:49] VITALS: BP 118/53; PULSE 79; RESP 18
[2019-08-18] MEDS: LACTULOSE 30ML CUP PO SCH ×4 (01:01→16:44)
[2019-08-18] MEDS: ACCU-CHEK XX SCH (02:59)
[2019-08-18 03:40] VITALS: BP 120/56; PULSE 79; RESP 18
[2019-08-18] MEDS: PANTOPRAZOLE (EC) 40 MG TAB PO SCH (06:23)
[2019-08-18 07:53] VITALS: BP 125/58; PULSE 78; RESP 20
[2019-08-18] MEDS: INSULIN ASPART [NOVOLOG] 3 ML PEN SC SCH ×7 (08:00→20:14)
[2019-08-18] MEDS: FUROSEMIDE 20 MG TAB PO SCH (08:03)
[2019-08-18] MEDS: TRIMETHOPRIM/SULFAMETHOX (DS) TAB PO SCH ×2 (08:03→20:11)
[2019-08-18] MEDS: FERROUS SULFATE (EC) 325 MG TAB PO SCH (08:03)
[2019-08-18] MEDS: AMLODIPINE 5 MG TAB PO SCH (08:03)
[2019-08-18] MEDS: RIFAXIMIN 550 MG TAB PO SCH ×2 (08:04→20:11)
[2019-08-18] MEDS: NEUTRA-PHOS 250 MG PACKET PO SCH ×2 (08:04→20:11)
[2019-08-18] MEDS ORDERED: FLU VACC QS 2019-20 (6MOS UP) 0.5 ML SYG IM* ONE (11:00)
[2019-08-18 11:20] VITALS: BP 118/56; PULSE 78; RESP 18
[2019-08-18 16:03] VITALS: BP 118/55; PULSE 80; RESP 18
[2019-08-18 20:00] VITALS: BP 120/60; PULSE 83; RESP 19
[2019-08-18] MEDS: INSULIN GLARGINE [LANTus] (100 UNITS/ML) SYG SC SCH (20:22)
[2019-08-19] VITALS: BP 124/58; PULSE 82; RESP 18
[2019-08-19] MEDS: LACTULOSE 30ML CUP PO SCH ×4 (01:21→17:18)
[2019-08-19] MEDS: ACCU-CHEK XX SCH (01:25)
[2019-08-19 04:00] VITALS: BP 118/57; PULSE 81; RESP 18
[2019-08-19] MEDS: PANTOPRAZOLE (EC) 40 MG TAB PO SCH (06:35)
[2019-08-19 07:27] VITALS: BP 125/56; PULSE 80; RESP 20
[2019-08-19] MEDS: INSULIN ASPART [NOVOLOG] 3 ML PEN SC SCH ×7 (08:00→21:00)
[2019-08-19] MEDS: FERROUS SULFATE (EC) 325 MG TAB PO SCH (08:52)
[2019-08-19] MEDS: AMLODIPINE 5 MG TAB PO SCH (08:53)
[2019-08-19] MEDS: FUROSEMIDE 20 MG TAB PO SCH (08:53)
[2019-08-19] MEDS: RIFAXIMIN 550 MG TAB PO SCH ×2 (08:53→21:32)
[2019-08-19] MEDS: NEUTRA-PHOS 250 MG PACKET PO SCH ×2 (08:53→21:32)
[2019-08-19] MEDS: TRIMETHOPRIM/SULFAMETHOX (DS) TAB PO SCH ×2 (08:54→21:32)
[2019-08-19 11:32] VITALS: BP 119/56; PULSE 79; RESP 20
[2019-08-19 15:19] VITALS: BP 118/58; PULSE 78; RESP 18
[2019-08-19 19:34] VITALS: BP 123/59; PULSE 81; RESP 18
[2019-08-19] MEDS: INSULIN GLARGINE [LANTus] (100 UNITS/ML) SYG SC SCH (21:34)
[2019-08-20 00:24] VITALS: BP 134/62; PULSE 81; RESP 18
[2019-08-20] MEDS: LACTULOSE 30ML CUP PO SCH ×4 (00:50→17:22)
[2019-08-20] MEDS: ACCU-CHEK XX SCH (02:11)
[2019-08-20 03:14] VITALS: BP 129/60; PULSE 79; RESP 18
[2019-08-20] MEDS: PANTOPRAZOLE (EC) 40 MG TAB PO SCH (06:20)
[2019-08-20] MEDS: INSULIN ASPART [NOVOLOG] 3 ML PEN SC SCH ×7 (08:00→20:40)
[2019-08-20 08:09] VITALS: BP 120/60; PULSE 77; RESP 19
[2019-08-20] MEDS: NEUTRA-PHOS 250 MG PACKET PO SCH ×2 (08:30→20:28)
[2019-08-20] MEDS: RIFAXIMIN 550 MG TAB PO SCH ×2 (08:30→20:28)
[2019-08-20] MEDS: FUROSEMIDE 20 MG TAB PO SCH (08:30)
[2019-08-20] MEDS: TRIMETHOPRIM/SULFAMETHOX (DS) TAB PO SCH ×2 (08:31→20:28)
[2019-08-20] MEDS: AMLODIPINE 5 MG TAB PO SCH (08:31)
[2019-08-20] MEDS: FERROUS SULFATE (EC) 325 MG TAB PO SCH (08:31)
[2019-08-20] MEDS ORDERED: SPIRONOLACTONE 25 MG TAB PO SCH (09:00)
[2019-08-20 11:21] VITALS: BP 123/58; PULSE 78; RESP 19
[2019-08-20 15:00] VITALS: BP 116/56; PULSE 82; RESP 19
[2019-08-20] MEDS: INSULIN GLARGINE [LANTus] (100 UNITS/ML) SYG SC SCH (20:39)
== END 2019-08-20 22:35 | DRG 871 ==
LOC: E/R 14:04 → UNDOADMIN 15:47 → TEL 15:47 → 6WM 15:47
PROVIDERS: ADMIT Internal Medicine; ATTEND Internal Medicine
PROC: 0W9G3ZZ Drainage of Peritoneal Cavity, Percutaneous Approach (ICD-10-PCS; principal; 2019-08-12)
PROC: 30233N1 Transfusion of Nonautologous Red Blood Cells into Peripheral Vein, Percutaneous Approach (ICD-10-PCS; 2019-08-17)
PROC: 0W9G3ZZ Drainage of Peritoneal Cavity, Percutaneous Approach (ICD-10-PCS; 2019-08-19)
DX: A41.51 Sepsis due to Escherichia coli [E. coli] (principal); K72.00 Acute and subacute hepatic failure without coma; G92 Toxic encephalopathy; N39.0 Urinary tract infection, site not specified; N17.9 Acute kidney failure, unspecified; Z16.12 Extended spectrum beta lactamase (ESBL) resistance; G93.40 Encephalopathy, unspecified; J81.1 Chronic pulmonary edema; R18.8 Other ascites; E87.1 Hypo-osmolality and hyponatremia; K74.69 Other cirrhosis of liver; B96.20 Unspecified Escherichia coli [E. coli] as the cause of diseases classified elsewhere; B96.89 Other specified bacterial agents as the cause of diseases classified elsewhere; D64.9 Anemia, unspecified; E11.9 Type 2 diabetes mellitus without complications; H40.9 Unspecified glaucoma; Z76.82 Awaiting organ transplant status
CPT/HCPCS: 36415; 36430; 70450; 71045; 74176; 76705; 76775; 80048; 80053; 80061; 80076; 80200; 80307; 81001; 81003; 82043; 82103; 82105; 82140; 82378; 82728; 82962; 83036; 83519; 83540; 83605; 83735; 83880; 84100; 84145; 84155; 84300; 84436; 84479; 84484; 85025; 85049; 85610; 85670; 85730; 86140; 86301; 86480; 86644; 86664; 86703; 86704; 86706; 86708; 86803; 86850; 86900; 86901; 86920; 87070; 87086; 87102; 87116; 87340; 87400; 89051; 90686; 92526; 92610; 93005; 96365; 96375; 97110; 97116; 97162; 97530; A4310; J0692; J0696; J1580; J1815; J1940; J2185; J2543; J3260; J3370; J7030; J7040; P9016; P9047